=== PATIENT | female | born 1955 | race Hispanic/Latino ===

== ENCOUNTER 2019-04-23 08:21 | Emergency (ER) | payer MEDICARE ==
[2019-04-23 08:32] VITALS: BP 124/56
[2019-04-23 09:16] LABS: Basophils # (Auto) 0.1 K/mm3 (0.0-0.1); Basophils % (Auto) 1.1 % (0.0-1.8); Eosinophils # (Auto) 0.4 K/mm3 (0.0-0.4); Eosinophils % (Auto) 3.5 % (0.0-4.3); Hematocrit 39.8 % (30.3-42.9); Hemoglobin 13.1 gm/dl (10.1-14.3); Lymphocytes # (Auto) 2.9 K/mm3 (1.2-5.4); Lymphocytes % (Auto) 23.3 % (13.4-35.0); Mean Corpuscular HGB Conc 33 % (30-34); Mean Corpuscular Volume 92 fl (79-97); Monocytes # (Auto) 0.7 K/mm3 (0.0-0.8); Monocytes % (Auto) 5.2 % (0.0-7.3); Platelet Count 276 K/mm3 (140-440); Red Blood Count 4.33 M/mm3 (3.65-5.03); Red Cell Distribution Width 14.6 % (13.2-15.2)
--- NOTE | 2019-04-23 09:23 | Emergency Department Report ---
ED Abdominal Pain HPI - General Chief Complaint: Abdominal Pain Stated Complaint: RT LOWER BACK/ABD PAIN Time Seen by Provider: 04/23/19 08:54 Source: patient Mode of arrival: Ambulatory Limitations: No Limitations - History of Present Illness Initial Comments: PT COMES TO ER WITH A/C ABD PAIN. PT HAS HX KIDNEY STONES AND HAS HAD "LASER" SURGERY FOR THEM. NO N/V/FEVER/CHILLS PT AMBULATORY ANON NON ILL APPEARING PMH HTN HPLD CHRONIC PAIN GERD K STONE PSH FOR K STONE HOME RX STATIN NORCO 7.5 LISINOPRIL PPI Complaint: abdominal pain -: year(s) Location: R flank Improves With: nothing Worsens With: nothing Associated Symptoms: denies other symptoms - Related Data Previous Rx's Medication Instructions Recorded Last Taken Type Meclizine [Antivert] 25 mg PO TID PRN #20 tablet 01/21/16 Unknown Rx Ibuprofen [Motrin 600 MG tab] 600 mg PO Q8H PRN #20 tablet 02/01/16 Unknown Rx Antacid [Alum-Mag Hydrox-Simeth 30 ml PO Q4H PRN #30 oral.liqd 03/21/16 Unknown Rx [id number]/5Ml] Aspirin [Adult Low Dose Aspirin EC] 81 mg PO DAILY #30 tablet. 03/21/16 Unknown Rx AtorvaSTATin [Lipitor] 10 mg PO DAILY #30 tablet 03/21/16 Unknown Rx Bisacodyl [Dulcolax suppos] 10 mg FL QDAY PRN #20 supp.rect 03/21/16 Unknown Rx Docusate Sodium [Colace CAP] 100 mg PO BID #60 capsule 03/21/16 Unknown Rx Famotidine [Pepcid] 20 mg PO BID #30 tablet 03/21/16 Unknown Rx PARoxetine [Paxil] 10 mg PO DAILY #30 tablet 03/21/16 Unknown Rx HYDROcodone/APAP 5-325 [[place] 1 - 2 each PO Q6HR PRN #14 tablet 03/27/16 Unknown Rx 5/325] Ibuprofen [Motrin 800 MG tab] 800 mg PO Q8HR PRN #20 tablet 03/27/16 Unknown Rx Ondansetron [Zofran TAB] 4 mg PO Q8HR PRN #20 tablet 04/09/16 Unknown Rx Pantoprazole [Protonix] 40 mg PO QDAY #30 tablet 04/09/16 Unknown Rx Allergies Allergy/AdvReac Type Severity Reaction Status Date / Time Penicillins Allergy Dizziness Verified 03/01/16 14:48 Sulfa (Sulfonamide Allergy Dizziness Verified 03/01/16 14:48 Antibiotics) ED Review of Systems ROS: Stated complaint: RT LOWER BACK/ABD PAIN Other details as noted in HPI Comment: All other systems reviewed and negative ED Past Medical Hx - Past Medical History Previous Medical History?: Yes Hx GERD: Yes Hx Kidney Stones: Yes Hx Psychiatric Treatment: Yes (depression) Additional medical history: Pt. recently homeless currently at [facility] in program - Surgical History Past Surgical History?: Yes Additional Surgical History: Hysterectomy. SURGERY FOR KIDNEY STONES - Family History Family history: no significant - Social History Smoking Status: Current Every Day Smoker Substance Use Type: None - Medications Home Medications: Home Medications Medication Instructions Recorded Confirmed Last Taken Type Meclizine [Antivert] 25 mg PO TID PRN #20 tablet 01/21/16 03/19/16 Unknown Rx Ibuprofen [Motrin 600 MG tab] 600 mg PO Q8H PRN #20 tablet 02/01/16 03/19/16 Unknown Rx Antacid [Alum-Mag Hydrox-Simeth 30 ml PO Q4H PRN #30 oral.liqd 03/21/16 Unknown Rx [id number]/5Ml] Aspirin [Adult Low Dose Aspirin EC] 81 mg PO DAILY #30 tablet.dr 03/21/16 Unknown Rx AtorvaSTATin [Lipitor] 10 mg PO DAILY #30 tablet 03/21/16 Unknown Rx Bisacodyl [Dulcolax suppos] 10 mg FL QDAY PRN #20 supp.rect 03/21/16 Unknown Rx Docusate Sodium [Colace CAP] 100 mg PO BID #60 capsule 03/21/16 Unknown Rx Famotidine [Pepcid] 20 mg PO BID #30 tablet 03/21/16 Unknown Rx PARoxetine [Paxil] 10 mg PO DAILY #30 tablet 03/21/16 Unknown Rx HYDROcodone/APAP 5-325 [[place] 1 - 2 each PO Q6HR PRN #14 tablet 03/27/16 Unknown Rx 5/325] Ibuprofen [Motrin 800 MG tab] 800 mg PO Q8HR PRN #20 tablet 03/27/16 Unknown Rx Ondansetron [Zofran TAB] 4 mg PO Q8HR PRN #20 tablet 04/09/16 Unknown Rx Pantoprazole [Protonix] 40 mg PO QDAY #30 tablet 04/09/16 Unknown Rx ED Physical Exam - General Limitations: No Limitations General appearance: alert, in no apparent distress - Head Head exam: Present: atraumatic, normocephalic - Eye Eye exam: Present: normal appearance - ENT ENT exam: Present: mucous membranes moist - Neck Neck exam: Present: normal inspection - Respiratory Respiratory exam: Present: normal lung sounds bilaterally. Absent: respiratory distress - Cardiovascular Cardiovascular Exam: Present: regular rate, normal rhythm. Absent: systolic murmur, diastolic murmur, rubs, gallop - GI/Abdominal GI/Abdominal exam: Present: soft, normal bowel sounds - Extremities Exam Extremities exam: Present: normal inspection - Back Exam Back exam: Present: normal inspection - Neurological Exam Neurological exam: Present: alert, oriented X3 - Psychiatric Psychiatric exam: Present: normal affect, normal mood - Skin Skin exam: Present: warm, dry, intact, normal color. Absent: rash ED Course Vital Signs 04/23/19 08:30 Temperature 97.9 F Pulse Rate 72 Respiratory 18 Rate Blood Pressure 124/56 O2 Sat by Pulse 95 Oximetry ED Medical Decision Making - Lab Data Result diagrams: 04/23/19 08:58 04/23/19 08:58 - Medical Decision Making Labs 04/23/19 04/23/19 04/23/19 08:58 08:58 08:58 WBC 12.6 H RBC 4.33 Hgb 13.1 Hct 39.8 MCV 92 MCH 30 MCHC 33 RDW 14.6 Plt Count 276 Lymph % (Auto) 23.3 [place] % (Auto) 5.2 Eos % (Auto) 3.5 Baso % (Auto) 1.1 Lymph # 2.9 [place] # 0.7 Eos # 0.4 Baso # 0.1 Seg Neutrophils % 66.9 Seg Neutrophils # 8.4 H Sodium 142 Potassium 4.6 Chloride 107.5 H Carbon Dioxide 21 L Anion Gap 18 BUN 13 Creatinine 0.7 Estimated GFR > 60 BUN/Creatinine Ratio 19 Glucose 108 H Calcium 9.7 Total Bilirubin 0.40 AST 19 ALT 22 Alkaline Phosphatase 121 Total Protein 7.5 Albumin 4.5 Albumin/Globulin Ratio 1.5 Lipase 42 Urine Color Urine Turbidity Urine pH Ur Specific [place] Urine Protein Urine Glucose (UA) Urine Ketones Urine Blood Urine Nitrite Urine Bilirubin Urine Urobilinogen Ur Leukocyte Esterase Urine WBC (Auto) Urine RBC (Auto) 04/23/19 09:01 WBC RBC Hgb Hct MCV MCH MCHC RDW Plt Count Lymph % (Auto) [place] % (Auto) Eos % (Auto) Baso % (Auto) Lymph # [place] # Eos # Baso # Seg Neutrophils % Seg Neutrophils # Sodium Potassium Chloride Carbon Dioxide Anion Gap BUN Creatinine Estimated GFR BUN/Creatinine Ratio Glucose Calcium Total Bilirubin AST ALT Alkaline Phosphatase Total Protein Albumin Albumin/Globulin Ratio Lipase Urine Color Yellow Urine Turbidity Slightly-cloudy Urine pH 5.0 Ur Specific [place] 1.019 Urine Protein <15 mg/dl Urine Glucose (UA) Neg Urine Ketones Neg Urine Blood Neg Urine Nitrite Neg Urine Bilirubin Neg Urine Urobilinogen 2.0 Ur Leukocyte Esterase Neg Urine WBC (Auto) < 1.0 Urine RBC (Auto) < 1.0 Vital Signs 04/23/19 08:30 Temperature 97.9 F Pulse Rate 72 Respiratory 18 Rate Blood Pressure 124/56 O2 Sat by Pulse 95 Oximetry LABS NOTED UA NOTED VSS NO FEVER AMBULATORY NON ILL NON TOXIC TAKING PO PT HAS MRI SCHEDULED FOR HER PAIN PER HER PCP DR LMEOS DC HOME WITH AR PLAN OF CARE AND PCP FOLLOW UP - Differential Diagnosis RO UTI/HEMATURIA SUGGESTING K. STONE/G BLADDER DISEASE Critical care attestation.: If time is entered above; I have spent that time in minutes in the direct care of this critically ill patient, excluding procedure time. ED Disposition Clinical Impression: Chronic abdominal pain Disposition: DC-01 TO HOME OR SELFCARE Is pt being admited?: No Does the pt Need Aspirin: No Condition: Stable Instructions: Abdominal Pain (ED) Additional Instructions: call your pcp or urology MD today for next appointment and MRI all labs normal today urine normal today continue home lortab Referrals: YADIEL SCHILLING [Primary Care Provider] - 3-5 Days Time of Disposition: 10:22
[2019-04-23 09:32] LABS: Bilirubin,Urine NEG (Negative); Blood,Urine NEG (Negative); Color,Urine Yellow (Yellow); Protein,Urine <15 mg/dL mg/dL (Negative)
[2019-04-23 09:33] LABS: RBC,Urine < 1.0 /HPF (0.0-6.0); WBC,Urine < 1.0 /HPF (0.0-6.0)
[2019-04-23 09:42] LABS: Alanine Aminotransferase 22 units/L (7-56); Albumin 4.5 g/dL (3.9-5); BUN/Creatinine Ratio 19; Blood Urea Nitrogen 13 mg/dL (7-17); Calcium 9.7 mg/dL (8.4-10.2); Hemolysis Index 23
== END 2019-04-23 10:33 | disposition home or self-care (01) ==
LOC: ED 08:21
DX: M54.5 Low back pain (principal); G89.29 Other chronic pain; K21.9 Gastro-esophageal reflux disease without esophagitis; F32.9 Major depressive disorder, single episode, unspecified; F17.200 Nicotine dependence, unspecified, uncomplicated; Z88.0 Allergy status to penicillin; Z88.2 Allergy status to sulfonamides; Z79.82 Long term (current) use of aspirin; Z79.899 Other long term (current) drug therapy; Z87.442 Personal history of urinary calculi; Z90.710 Acquired absence of both cervix and uterus; Z59.0 Homelessness; Z79.1 Long term (current) use of non-steroidal anti-inflammatories (NSAID)
CPT/HCPCS: 36415; 80053; 81001; 83690; 85025; 99283

== ENCOUNTER 2019-06-07 09:09 | Emergency (ER) | payer MEDICARE ==
--- NOTE | 2019-06-07 10:12 | Emergency Department Report ---
ED General Adult HPI - General Chief complaint: Skin/Abscess/Foreign Body Stated complaint: LFT LEG BITE/SWELLING/PAIN Time Seen by Provider: 06/07/19 10:10 Source: patient Mode of arrival: Wheelchair Limitations: No Limitations - Related Data Previous Rx's Medication Instructions Recorded Last Taken Type Aspirin [Adult Low Dose Aspirin EC] 81 mg PO DAILY #30 tablet. 03/21/16 Unknown Rx AtorvaSTATin [Lipitor] 10 mg PO DAILY #30 tablet 03/21/16 Unknown Rx Famotidine [Pepcid] 20 mg PO BID #30 tablet 03/21/16 Unknown Rx Pantoprazole [Protonix] 40 mg PO QDAY #30 tablet 04/09/16 Unknown Rx Clindamycin [Clindamycin CAP] 150 mg PO Q8HR #30 capsule 06/07/19 Unknown Rx Allergies Allergy/AdvReac Type Severity Reaction Status Date / Time Penicillins Allergy Dizziness Verified 03/01/16 14:48 Sulfa (Sulfonamide Allergy Dizziness Verified 03/01/16 14:48 Antibiotics) ED Review of Systems ROS: Stated complaint: LFT LEG BITE/SWELLING/PAIN Other details as noted in HPI Comment: All other systems reviewed and negative ED Past Medical Hx - Past Medical History Previous Medical History?: Yes Hx GERD: Yes Hx Kidney Stones: Yes Hx Psychiatric Treatment: Yes (depression) Additional medical history: Pt. recently homeless currently at [facility] - Surgical History Past Surgical History?: Yes Additional Surgical History: Hysterectomy. SURGERY FOR KIDNEY STONES - Family History Family history: no significant - Social History Smoking Status: Current Every Day Smoker Substance Use Type: None - Medications Home Medications: Home Medications Medication Instructions Recorded Confirmed Last Taken Type Aspirin [Adult Low Dose Aspirin EC] 81 mg PO DAILY #30 tablet. 03/21/16 Unknown Rx AtorvaSTATin [Lipitor] 10 mg PO DAILY #30 tablet 03/21/16 Unknown Rx Famotidine [Pepcid] 20 mg PO BID #30 tablet 03/21/16 Unknown Rx Pantoprazole [Protonix] 40 mg PO QDAY #30 tablet 04/09/16 Unknown Rx Clindamycin [Clindamycin CAP] 150 mg PO Q8HR #30 capsule 06/07/19 Unknown Rx ED Physical Exam - General Limitations: No Limitations General appearance: alert, in no apparent distress - Head Head exam: Present: atraumatic, normocephalic - Eye Eye exam: Present: normal appearance - ENT ENT exam: Present: mucous membranes moist - Neck Neck exam: Present: normal inspection - Respiratory Respiratory exam: Present: normal lung sounds bilaterally. Absent: respiratory distress - Cardiovascular Cardiovascular Exam: Present: regular rate, normal rhythm. Absent: systolic murmur, diastolic murmur, rubs, gallop - GI/Abdominal GI/Abdominal exam: Present: soft, normal bowel sounds - Extremities Exam Extremities exam: Present: normal inspection - Expanded Lower Extremity Exam Left Upper Leg exam: Present: full ROM, tenderness. Absent: swelling - Back Exam Back exam: Present: normal inspection - Neurological Exam Neurological exam: Present: alert, oriented X3 - Psychiatric Psychiatric exam: Present: normal affect, normal mood - Skin Skin exam: Present: warm, dry, intact, normal color. Absent: rash ED Course Vital Signs 06/07/19 09:15 Temperature 97.4 F L Pulse Rate 74 Respiratory 20 Rate Blood Pressure 131/82 O2 Sat by Pulse 97 Oximetry ED Medical Decision Making - Lab Data Result diagrams: 06/07/19 10:56 06/07/19 10:56 - EKG Data EKG shows normal: sinus rhythm Rate: normal - EKG Data Interpretation: nonspecific ST-T wave alice - Radiology Data Radiology results: report reviewed, image reviewed - Medical Decision Making Lab Results 06/07/19 06/07/19 06/07/19 Range/Units 10:56 10:56 10:56 WBC 15.5 H (4.5-11.0) K/mm3 RBC 4.23 (3.65-5.03) M/mm3 Hgb 12.8 (10.1-14.3) gm/dl Hct 38.7 (30.3-42.9) % MCV 92 (79-97) fl MCH 30 (28-32) pg MCHC 33 (30-34) % RDW 14.7 (13.2-15.2) % Plt Count 282 (140-440) K/mm3 Lymph % (Auto) 20.2 (13.4-35.0) % [place] % (Auto) 4.9 (0.0-7.3) % Eos % (Auto) 1.8 (0.0-4.3) % Baso % (Auto) 0.9 (0.0-1.8) % Lymph # 3.1 (1.2-5.4) K/mm3 [place] # 0.8 (0.0-0.8) K/mm3 Eos # 0.3 (0.0-0.4) K/mm3 Baso # 0.1 (0.0-0.1) K/mm3 Seg Neutrophils % 72.2 H (40.0-70.0) % Seg Neutrophils # 11.2 H (1.8-7.7) K/mm3 Sodium 141 (137-145) mmol/L Potassium 4.5 (3.6-5.0) mmol/L Chloride 104.1 (98-107) mmol/L Carbon Dioxide 21 L (22-30) mmol/L Anion Gap 20 mmol/L BUN 14 (7-17) mg/dL Creatinine 0.7 (0.7-1.2) mg/dL Estimated GFR > 60 ml/min BUN/Creatinine Ratio 20 % Glucose 97 (65-100) mg/dL Lactic Acid 1.20 (0.7-2.0) mmol/L Calcium 9.2 (8.4-10.2) mg/dL Total Bilirubin 0.30 (0.1-1.2) mg/dL AST 16 (5-40) units/L ALT 22 (7-56) units/L Alkaline Phosphatase 116 (35-129) units/L Troponin T < 0.010 (0.00-0.029) ng/mL Total Protein 7.4 (6.3-8.2) g/dL Albumin 4.0 (3.9-5) g/dL Albumin/Globulin Ratio 1.2 % Urine Color (Yellow) Urine Turbidity (Clear) Urine pH (5.0-7.0) Ur Specific [place] (1.003-1.030) Urine Protein (Negative) mg/dL Urine Glucose (UA) (Negative) mg/dL Urine Ketones (Negative) mg/dL Urine Blood (Negative) Urine Nitrite (Negative) Urine Bilirubin (Negative) Urine Urobilinogen (<2.0) mg/dL Ur Leukocyte Esterase (Negative) Urine WBC (Auto) (0.0-6.0) /HPF Urine RBC (Auto) (0.0-6.0) /HPF U Epithel Cells (Auto) (0-13.0) /HPF Urine Bacteria (Auto) (Negative) /HPF Urine Mucus /HPF 06/07/19 Range/Units Unknown WBC (4.5-11.0) K/mm3 RBC (3.65-5.03) M/mm3 Hgb (10.1-14.3) gm/dl Hct (30.3-42.9) % MCV (79-97) fl MCH (28-32) pg MCHC (30-34) % RDW (13.2-15.2) % Plt Count (140-440) K/mm3 Lymph % (Auto) (13.4-35.0) % [place] % (Auto) (0.0-7.3) % Eos % (Auto) (0.0-4.3) % Baso % (Auto) (0.0-1.8) % Lymph # (1.2-5.4) K/mm3 [place] # (0.0-0.8) K/mm3 Eos # (0.0-0.4) K/mm3 Baso # (0.0-0.1) K/mm3 Seg Neutrophils % (40.0-70.0) % Seg Neutrophils # (1.8-7.7) K/mm3 Sodium (137-145) mmol/L Potassium (3.6-5.0) mmol/L Chloride (98-107) mmol/L Carbon Dioxide (22-30) mmol/L Anion Gap mmol/L BUN (7-17) mg/dL Creatinine (0.7-1.2) mg/dL Estimated GFR ml/min BUN/Creatinine Ratio % Glucose (65-100) mg/dL Lactic Acid (0.7-2.0) mmol/L Calcium (8.4-10.2) mg/dL Total Bilirubin (0.1-1.2) mg/dL AST (5-40) units/L ALT (7-56) units/L Alkaline Phosphatase (35-129) units/L Troponin T (0.00-0.029) ng/mL Total Protein (6.3-8.2) g/dL Albumin (3.9-5) g/dL Albumin/Globulin Ratio % Urine Color Yellow (Yellow) Urine Turbidity Clear (Clear) Urine pH 5.0 (5.0-7.0) Ur Specific [place] 1.026 (1.003-1.030) Urine Protein <15 mg/dl (Negative) mg/dL Urine Glucose (UA) Neg (Negative) mg/dL Urine Ketones Neg (Negative) mg/dL Urine Blood Neg (Negative) Urine Nitrite Neg (Negative) Urine Bilirubin Neg (Negative) Urine Urobilinogen 2.0 (<2.0) mg/dL Ur Leukocyte Esterase Neg (Negative) Urine WBC (Auto) 1.0 (0.0-6.0) /HPF Urine RBC (Auto) 5.0 (0.0-6.0) /HPF U Epithel Cells (Auto) 2.0 (0-13.0) /HPF Urine Bacteria (Auto) 1+ (Negative) /HPF Urine Mucus 1+ /HPF Vital Signs 06/07/19 09:15 Temperature 97.4 F L Pulse Rate 74 Respiratory 20 Rate Blood Pressure 131/82 O2 Sat by Pulse 97 Oximetry Critical care attestation.: If time is entered above; I have spent that time in minutes in the direct care of this critically ill patient, excluding procedure time. ED Disposition Clinical Impression: Leg pain Disposition: DC-01 TO HOME OR SELFCARE Is pt being admited?: No Does the pt Need Aspirin: No Condition: Stable Instructions: Cellulitis (ED) Additional Instructions: warm compresses to leg meds as ordered motrin or tylenol for pain continue home pain meds follow up with pcp early next week diet and activity as tolerated Referrals: PRIMARY CAREMD [Primary Care Provider] - 3-5 Days DARLINE HARE MD [Staff Physician] - 3-5 Days Time of Disposition: 13:26
--- NOTE | 2019-06-07 10:42 | XRay Report ---
CHEST 1 VIEW INDICATION: syncope, shortness of breath. COMPARISON: Chest x-ray from 03/19/2016 FINDINGS: Support devices: None. Heart: Within normal limits. Lungs/Pleura: No acute air space or interstitial disease. Additional findings: None. IMPRESSION: 1. No acute findings. Signer Name: Corey Finch MD Signed: 06/07/2019 10:38 AM Workstation Name: [id number]
[2019-06-07] MEDS ORDERED: IBUPROFEN 800 MG TAB PO ONE (10:54)
--- NOTE | 2019-06-07 10:56 | Cat Scan Report ---
NONENHANCED CT SCAN OF THE HEAD: INDICATION / CLINICAL INFORMATION: 63 years Female; syncope. TECHNIQUE: Routine CT head without contrast. All CT scans at this location are performed using CT dos e reduction for ALARA by means of automated exposure control. COMPARISON: CT scan from 01/21/2016 FINDINGS: BRAIN / INTRACRANIAL CONTENTS: No acute hemorrhage, mass effect, midline shift, hydrocephalus, or ac [place], large territorial infarct. Mild volume loss is seen in the cerebellar hemispheres and cerebellar vermis. No significant white matter abnormality. CRANIOCERVICAL JUNCTION: No significant abnormality. ORBITS: No significant abnormality of visualized orbits. SINUSES / MASTOIDS: No significant abnormality of the visualized paranasal sinuses or mastoid air abbe ls. ADDITIONAL FINDINGS: None. IMPRESSION: No acute parenchymal lesion in the brain Signer Name: Jeison Abel MD Signed: 06/07/2019 10:52 AM Workstation Name: [id number]
[2019-06-07 11:11] LABS: Basophils # (Auto) 0.1 K/mm3 (0.0-0.1); Basophils % (Auto) 0.9 % (0.0-1.8); Eosinophils # (Auto) 0.3 K/mm3 (0.0-0.4); Eosinophils % (Auto) 1.8 % (0.0-4.3); Hematocrit 38.7 % (30.3-42.9); Hemoglobin 12.8 gm/dl (10.1-14.3); Lymphocytes # (Auto) 3.1 K/mm3 (1.2-5.4); Lymphocytes % (Auto) 20.2 % (13.4-35.0); Mean Corpuscular HGB Conc 33 % (30-34); Mean Corpuscular Volume 92 fl (79-97); Monocytes # (Auto) 0.8 K/mm3 (0.0-0.8); Monocytes % (Auto) 4.9 % (0.0-7.3); Platelet Count 282 K/mm3 (140-440); Red Blood Count 4.23 M/mm3 (3.65-5.03); Red Cell Distribution Width 14.7 % (13.2-15.2)
[2019-06-07 11:37] LABS: Alanine Aminotransferase 22 units/L (7-56); BUN/Creatinine Ratio 20; Blood Urea Nitrogen 14 mg/dL (7-17); Calcium 9.2 mg/dL (8.4-10.2); Hemolysis Index 12
[2019-06-07 11:51] LABS: Bacteria,Urine 1+ /HPF (Negative); Bilirubin,Urine NEG (Negative); Blood,Urine NEG (Negative); Color,Urine Yellow (Yellow); Mucus,Urine 1+ /HPF; Protein,Urine <15 mg/dL mg/dL (Negative)
--- NOTE | 2019-06-07 13:09 | Vascular Lab Report ---
DUPLEX DOPPLER LOWER EXTREMITY VEINS, LEFT INDICATION: painful knot. TECHNIQUE: Duplex doppler imaging was performed through the veins of the left lower extremity using venous compr ession and other maneuvers. COMPARISON: No relevant prior imaging study available. FINDINGS: Left Common femoral vein: Negative. Left Superficial femoral vein: Negative. Left Popliteal vein: Negative. Left Calf veins: Negative. Additional findings: A couple shoddy lymph nodes were noted over the upper thigh. IMPRESSION: 1. No sonographic evidence for DVT in the left lower extremity. Signer Name: Corey Finch MD Signed: 06/07/2019 1:04 PM Workstation Name: [id number]
[2019-06-07] MEDS ORDERED: CLINDAMYCIN 300 MG/50 mL 300 MG/50 ML BAG IV ONE (13:23)
[2019-06-07 14:40] VITALS: BP 130/80
== END 2019-06-07 14:40 | disposition home or self-care (01) ==
LOC: ED 09:09
DX: M79.605 Pain in left leg (principal); K21.9 Gastro-esophageal reflux disease without esophagitis; N20.0 Calculus of kidney; F32.9 Major depressive disorder, single episode, unspecified; Z90.710 Acquired absence of both cervix and uterus; Z79.899 Other long term (current) drug therapy; F17.200 Nicotine dependence, unspecified, uncomplicated; R55 Syncope and collapse; Z88.0 Allergy status to penicillin; Z88.2 Allergy status to sulfonamides
CPT/HCPCS: 36415; 70450; 71045; 80053; 81001; 82140; 84484; 85025; 93005; 93010; 96365

== ENCOUNTER 2020-01-05 05:31 | Observation (INO) | payer MEDICAID, MEDICARE ==
--- NOTE | 2020-01-05 06:19 | XRay Report ---
CHEST 1 VIEW INDICATION / CLINICAL INFORMATION: Chest Pain. COMPARISON: None available. FINDINGS: SUPPORT DEVICES: None. HEART / MEDIASTINUM: No significant abnormality. LUNGS / PLEURA: Increase in pulmonary vascularity/congestion noted bilaterally. No pleural effusion. Signer Name: Tavo Molina MD Signed: 01/05/2020 6:15 AM Workstation Name: [id number]
[2020-01-05 06:31] LABS: Basophils # (Auto) 0.1 K/mm3 (0.0-0.1); Basophils % (Auto) 1.2 % (0.0-1.8); Eosinophils # (Auto) 0.3 K/mm3 (0.0-0.4); Eosinophils % (Auto) 2.7 % (0.0-4.3); Hematocrit 38.6 % (30.3-42.9); Hemoglobin 12.8 gm/dl (10.1-14.3); Lymphocytes # (Auto) 2.9 K/mm3 (1.2-5.4); Lymphocytes % (Auto) 27.8 % (13.4-35.0); Mean Corpuscular HGB Conc 33 % (30-34); Mean Corpuscular Volume 92 fl (79-97); Monocytes # (Auto) 0.7 K/mm3 (0.0-0.8); Monocytes % (Auto) 6.5 % (0.0-7.3); Platelet Count 323 K/mm3 (140-440); Red Blood Count 4.21 M/mm3 (3.65-5.03); Red Cell Distribution Width 14.8 % (13.2-15.2)
[2020-01-05 07:35] LABS: BUN/Creatinine Ratio 27; Blood Urea Nitrogen 19 mg/dL (7-17); Calcium 9.9 mg/dL (8.4-10.2); Hemolysis Index 6
--- NOTE | 2020-01-05 09:07 | Emergency Department Report ---
ED Chest Pain HPI - General Chief Complaint: Chest Pain Stated Complaint: CHEST PAIN Time Seen by Provider: 01/05/20 09:05 Source: patient, EMS Mode of arrival: Ambulatory Limitations: No Limitations - History of Present Illness Initial Comments: This is a 64-year-old female who states that she is unaware that she has any heart problems. Upon review of 2016 hospitalization she did have a normal myocardial perfusion scan. However her EKGs are consistent with old anterior wall zone. I do not see an echocardiogram on my review of the current rec ords. She states she does not have a market specialist. She states that she has a family doctor but cannot identify the name. She complains of intermittent chest pain. The last episode was pressure-like 15 minutes to 1/2-hour last night. It was nonpleuritic and nonradiating. It was associated with shortness of breath. Patient denies recent travel. She is morbidly obese. She lives alone. She d oes not know her current medical regimen very well other than that she is on a statin. She does not report treatment for congestive heart failure. She does not report exposure to patients with coronavirus nor recent travel. 2016 D/C Summary for Hospital course: Patient is a 60 years old female with past medical history significant for GERD and depression who presented to the hospital complaining of chest pain. Acute coronary syndrome was excluded based on EKG, serial cardiac enzymes and negative stress test. Her symptoms are related most likely with GERD/dyspepsia. She was started on Pepcid. Was also diagnosed with dyslipidemia and started on statin. Disposition: DISCHARGED TO HOME OR SELFCARE Time spent for discharge: 35 min - Discharge Diagnoses (1) Chest pain Status: Acute Comment: Likely secondary to GERD (2) Dyslipidemia Status: Acute (3) GERD (gastroesophageal reflux disease) Status: Acute Qualifiers: Esophagitis presence: without esophagitis Qualified Code(s): K21.9 - Gastro-esophageal reflux disease without esophagitis (4) Constipation Status: Acute (5) Depression Status: Acute MD Complaint: chest pain -: Gradual, week(s) (Intermittently) Onset: during rest Pain Location: substernal Pain Radiation: none Severity: moderate Quality: pressure Consistency: intermittent Improves With: nothing Worsens With: nothing re: dyspnea Other Symptoms: denies: cough, fever, syncope Treatments Prior to Arrival: none - Related Data Previous Rx's Medication Instructions Recorded Last Taken Type Aspirin [Adult Low Dose Aspirin EC] 81 mg PO DAILY #30 tablet. 03/21/16 Unknown Rx AtorvaSTATin [Lipitor] 10 mg PO DAILY #30 tablet 03/21/16 Unknown Rx Famotidine [Pepcid] 20 mg PO BID #30 tablet 03/21/16 Unknown Rx Pantoprazole [Protonix] 40 mg PO QDAY #30 tablet 04/09/16 Unknown Rx Clindamycin [Clindamycin CAP] 150 mg PO Q8HR #30 capsule 06/07/19 Unknown Rx Allergies Allergy/AdvReac Type Severity Reaction Status Date / Time Penicillins Allergy Dizziness Verified 03/01/16 14:48 Sulfa (Sulfonamide Allergy Dizziness Verified 03/01/16 14:48 Antibiotics) Heart Score - HEART Score History: Moderately suspicious EKG: Non-specific Age: > 65 Risk factors: > 3 risk factors or hx of atherosclerotic disease Troponin: < normal limit HEART Score: 6 - Critical Actions Critical Actions: 4-6 pts:12-16.6% risk of adverse cardiac event. Should be admitted ED Review of Systems ROS: Stated complaint: CHEST PAIN Other details as noted in HPI Constitutional: denies: chills, fever Eyes: denies: eye pain, eye discharge, vision change ENT: denies: ear pain, throat pain Respiratory: shortness of breath. denies: cough, wheezing Cardiovascular: chest pain. denies: palpitations Endocrine: no symptoms reported Gastrointestinal: denies: abdominal pain, nausea, diarrhea Genitourinary: denies: urgency, dysuria, discharge Musculoskeletal: denies: back pain, joint swelling, arthralgia Skin: denies: rash, lesions Neurological: denies: headache, weakness, paresthesias Psychiatric: denies: anxiety, depression Hematological/Lymphatic: denies: easy bleeding, easy bruising ED Past Medical Hx - Past Medical History Previous Medical History?: Yes Hx GERD: Yes Hx Kidney Stones: Yes Hx Psychiatric Treatment: Yes (depression) Additional medical history: Pt. recently homeless currently at [facility] in program. This is populated from her previous medical record. Patient states that she lives alone "with a cat". - Surgical History Past Surgical History?: Yes Additional Surgical History: Hysterectomy. SURGERY FOR KIDNEY STONES - Social History Smoking Status: Current Every Day Smoker Substance Use Type: None - Medications Home Medications: Home Medications Medication Instructions Recorded Confirmed Last Taken Type Aspirin [Adult Low Dose Aspirin EC] 81 mg PO DAILY #30 tablet. 03/21/16 Unknown Rx AtorvaSTATin [Lipitor] 10 mg PO DAILY #30 tablet 03/21/16 Unknown Rx Famotidine [Pepcid] 20 mg PO BID #30 tablet 03/21/16 Unknown Rx Pantoprazole [Protonix] 40 mg PO QDAY #30 tablet 04/09/16 Unknown Rx Clindamycin [Clindamycin CAP] 150 mg PO Q8HR #30 capsule 06/07/19 Unknown Rx ED Physical Exam - General Limitations: Physical Limitation (Poorly mobile) General appearance: obese (Morbidly obese) - Head Head exam: Present: atraumatic - Eye Eye exam: Absent: scleral icterus - ENT ENT exam: Present: mucous membranes moist - Neck Neck exam: Present: normal inspection. Absent: tenderness, meningismus - Respiratory Respiratory exam: Present: normal lung sounds bilaterally. Absent: respiratory distress - Cardiovascular Cardiovascular Exam: Present: regular rate, normal rhythm. Absent: systolic murmur, diastolic murmur, rubs, gallop - GI/Abdominal GI/Abdominal exam: Present: soft, normal bowel sounds. Absent: distended, tenderness, guarding, rebound - Extremities Exam Extremities exam: Present: pedal edema (And pretibial) - Back Exam Back exam: Present: normal inspection - Neurological Exam Neurological exam: Present: alert, oriented X3. Absent: CN II-XII intact, motor sensory deficit - Psychiatric Psychiatric exam: Present: anxious - Skin Skin exam: Present: warm, dry, intact, normal color. Absent: rash ED Course Vital Signs 01/05/20 01/05/20 01/05/20 05:36 08:58 09:00 Temperature 98.2 F Pulse Rate 80 77 76 Respiratory 18 13 16 Rate Blood Pressure 115/53 115/71 O2 Sat by Pulse 95 95 95 Oximetry 01/05/20 01/05/20 01/05/20 09:15 09:31 09:45 Temperature Pulse Rate Respiratory 9 L 13 16 Rate Blood Pressure 117/63 100/76 120/76 O2 Sat by Pulse 96 97 96 Oximetry 01/05/20 01/05/20 10:09 10:15 Temperature Pulse Rate Respiratory Rate Blood Pressure 120/76 105/75 O2 Sat by Pulse 95 97 Oximetry - Reevaluation(s) Reevaluation #1: Patient will be admitted to the hospital service for further care and stratification cardiology consultation/treatment for CHF and evaluation of chest pain 01/05/20 09:41 Reevaluation #2: Discussed with hospitalist and admitted. 01/05/20 12:18 GISEL score - Gisel Score Age > 65: (0) No Aspirin use within the Past 7 Days: (0) No 3 or more CAD Risk Factors: (1) Yes 2 or more Angina events in past 24 hrs: (1) Yes Known CAD with more than 50% Stenosis: (0) No Elevated Cardiac Markers: (0) No ST Deviation Greater than 0.5mm: (0) No GISEL Score: 2 ED Medical Decision Making - Lab Data Result diagrams: 01/05/20 05:58 01/05/20 05:58 Laboratory Results - last 24 hr 01/05/20 01/05/20 01/05/20 05:58 05:58 08:13 WBC 10.5 RBC 4.21 Hgb 12.8 Hct 38.6 MCV 92 MCH 30 MCHC 33 RDW 14.8 Plt Count 323 Lymph % (Auto) 27.8 [place] % (Auto) 6.5 Eos % (Auto) 2.7 Baso % (Auto) 1.2 Lymph # 2.9 [place] # 0.7 Eos # 0.3 Baso # 0.1 Seg Neutrophils % 61.8 Seg Neutrophils # 6.5 Sodium 139 Potassium 4.5 Chloride 103.7 Carbon Dioxide 22 Anion Gap 18 BUN 19 H Creatinine 0.7 Estimated GFR > 60 BUN/Creatinine Ratio 27 Glucose 111 H Calcium 9.9 Troponin T < 0.010 < 0.010 Laboratory Results - last 24 hr 01/05/20 01/05/20 01/05/20 05:58 05:58 08:13 WBC 10.5 RBC 4.21 Hgb 12.8 Hct 38.6 MCV 92 MCH 30 MCHC 33 RDW 14.8 Plt Count 323 Lymph % (Auto) 27.8 [place] % (Auto) 6.5 Eos % (Auto) 2.7 Baso % (Auto) 1.2 Lymph # 2.9 [place] # 0.7 Eos # 0.3 Baso # 0.1 Seg Neutrophils % 61.8 Seg Neutrophils # 6.5 Sodium 139 Potassium 4.5 Chloride 103.7 Carbon Dioxide 22 Anion Gap 18 BUN 19 H Creatinine 0.7 Estimated GFR > 60 BUN/Creatinine Ratio 27 Glucose 111 H Calcium 9.9 Troponin T < 0.010 < 0.010 Laboratory Results - last 24 hr 01/05/20 01/05/20 01/05/20 05:58 05:58 08:13 WBC 10.5 RBC 4.21 Hgb 12.8 Hct 38.6 MCV 92 MCH 30 MCHC 33 RDW 14.8 Plt Count 323 Lymph % (Auto) 27.8 [place] % (Auto) 6.5 Eos % (Auto) 2.7 Baso % (Auto) 1.2 Lymph # 2.9 [place] # 0.7 Eos # 0.3 Baso # 0.1 Seg Neutrophils % 61.8 Seg Neutrophils # 6.5 PT INR APTT D-Dimer Sodium 139 Potassium 4.5 Chloride 103.7 Carbon Dioxide 22 Anion Gap 18 BUN 19 H Creatinine 0.7 Estimated GFR > 60 BUN/Creatinine Ratio 27 Glucose 111 H Calcium 9.9 Magnesium Total Bilirubin Direct Bilirubin Indirect Bilirubin AST ALT Alkaline Phosphatase Troponin T < 0.010 < 0.010 NT-Pro-B Natriuret Pep Total Protein Albumin Albumin/Globulin Ratio Urine Color Urine Turbidity Urine pH Ur Specific [place] Urine Protein Urine Glucose (UA) Urine Ketones Urine Blood Urine Nitrite Urine Bilirubin Urine Urobilinogen Ur Leukocyte Esterase Urine WBC (Auto) Urine RBC (Auto) U Epithel Cells (Auto) 01/05/20 01/05/20 01/05/20 09:14 09:14 10:35 WBC RBC Hgb Hct MCV MCH MCHC RDW Plt Count Lymph % (Auto) [place] % (Auto) Eos % (Auto) Baso % (Auto) Lymph # [place] # Eos # Baso # Seg Neutrophils % Seg Neutrophils # PT 12.4 INR 0.91 APTT 26.2 D-Dimer 223.20 Sodium Potassium Chloride Carbon Dioxide Anion Gap BUN Creatinine Estimated GFR BUN/Creatinine Ratio Glucose Calcium Magnesium 2.40 H Total Bilirubin 0.30 Direct Bilirubin < 0.2 Indirect Bilirubin 0.1 AST 30 ALT 38 Alkaline Phosphatase 77 Troponin T NT-Pro-B Natriuret Pep 28.96 Total Protein 7.5 Albumin 4.1 Albumin/Globulin Ratio 1.2 Urine Color Colorless Urine Turbidity Clear Urine pH 6.0 Ur Specific [place] 1.006 Urine Protein <15 mg/dl Urine Glucose (UA) Neg Urine Ketones Neg Urine Blood Neg Urine Nitrite Neg Urine Bilirubin Neg Urine Urobilinogen < 2.0 Ur Leukocyte Esterase Neg Urine WBC (Auto) < 1.0 Urine RBC (Auto) < 1.0 U Epithel Cells (Auto) 1.0 01/05/20 11:30 WBC RBC Hgb Hct MCV MCH MCHC RDW Plt Count Lymph % (Auto) [place] % (Auto) Eos % (Auto) Baso % (Auto) Lymph # [place] # Eos # Baso # Seg Neutrophils % Seg Neutrophils # PT INR APTT D-Dimer Sodium Potassium Chloride Carbon Dioxide Anion Gap BUN Creatinine Estimated GFR BUN/Creatinine Ratio Glucose Calcium Magnesium Total Bilirubin Direct Bilirubin Indirect Bilirubin AST ALT Alkaline Phosphatase Troponin T < 0.010 NT-Pro-B Natriuret Pep Total Protein Albumin Albumin/Globulin Ratio Urine Color Urine Turbidity Urine pH Ur Specific [place] Urine Protein Urine Glucose (UA) Urine Ketones Urine Blood Urine Nitrite Urine Bilirubin Urine Urobilinogen Ur Leukocyte Esterase Urine WBC (Auto) Urine RBC (Auto) U Epithel Cells (Auto) - EKG Data -: EKG Interpreted by [place] EKG shows normal: sinus rhythm, axis, intervals, QRS complexes (Poor R wave progression/QS V2 V3 consistent with old anterior TN. No change from prior EKG), ST-T waves Rate: normal - EKG Data When compared to previous EKG there are: no significant change Interpretation: no acute changes - Radiology Data Radiology results: report reviewed, image reviewed LUNGS / PLEURA: Increase in pulmonary vascularity/congestion noted bilaterally. No pleural effusion. Critical care attestation.: If time is entered above; I have spent that time in minutes in the direct care of this critically ill patient, excluding procedure time. ED Disposition Clinical Impression: Chest pain Qualifiers: Chest pain type: unspecified Qualified Code(s): R07.9 - Chest pain, unspecified Congestive heart failure Qualifiers: Heart failure type: unspecified Heart failure chronicity: acute Qualified Code(s): I50.9 - Heart failure, unspecified Disposition: 09 OP ADMIT IP TO THIS HOSP Is pt being admited?: Yes Does the pt Need Aspirin: Yes Condition: Stable Time of Disposition: 09:43
[2020-01-05] MEDS ORDERED: FUROSEMIDE 40 MG/4 ML INJ IV ONE (09:39)
[2020-01-05] MEDS ORDERED: ASPIRIN 325 MG TAB PO ONE (09:39)
[2020-01-05 09:47] LABS: Partial Thromboplastin Time 26.2 Sec. (24.2-36.6)
[2020-01-05 09:53] LABS: INR 0.91 (0.87-1.13)
[2020-01-05 09:58] LABS: Alanine Aminotransferase 38 units/L (7-56); Albumin 4.1 g/dL (3.9-5)
[2020-01-05 10:00] LABS: Bilirubin,Direct < 0.2 mg/dL (0-0.2)
[2020-01-05 10:53] LABS: Bilirubin,Urine NEG (Negative); Blood,Urine NEG (Negative); Color,Urine Colorless (Yellow); Protein,Urine <15 mg/dL mg/dL (Negative); RBC,Urine < 1.0 /HPF (0.0-6.0); Urobilinogen,Urine < 2.0 mg/dL (<2.0); WBC,Urine < 1.0 /HPF (0.0-6.0)
[2020-01-05] MEDS ORDERED: ONDANSETRON 4 MG/2 ML INJ IV PRN (11:50)
[2020-01-05] MEDS ORDERED: ACETAMINOPHEN 325 MG TAB PO PRN (11:50)
[2020-01-05] MEDS ORDERED: ALBUTEROL 2.5 MG/3 ML NEBU IH PRN (11:50)
[2020-01-05] MEDS ORDERED: NALOXONE 0.4 MG/1 ML INJ IV PRN (11:50)
--- NOTE | 2020-01-05 11:59 | History and Physical Report ---
History of Present Illness Date of examination: 01/05/20 Date of admission: 01/05/20 Chief complaint: Chest pain History of present illness: Patient is a 64-year-old female with past medical history of GERD, dyslipidemia, chronic pain syndrome, constipation and depression who presents to the ED with complaint of generalized body pain. She reports that she this has been ongoing for about 1 to 2 weeks with no resolution. Her pain is migratory and sometimes is on the right and on the left side of the chest. States last episode was pressure-like and was about 15 minutes to half an hour. She did report some shortness of breath he states was just one episode. She also went off on a tangent telling me that she is homeless but stays [facility] from where she came to the hospital for evaluation. No acute findings were noted in the ED were concerning for her chest pain we recommended to admit the patient. Past History Past Medical History: hypertension, hyperlipidemia, other (CHRONIC PAIN SYNDROME) Past Surgical History: No surgical history Social history: no significant social history Family history: no significant family history Medications and Allergies Allergies Allergy/AdvReac Type Severity Reaction Status Date / Time Penicillins Allergy Dizziness Verified 03/01/16 14:48 Sulfa (Sulfonamide Allergy Dizziness Verified 03/01/16 14:48 Antibiotics) Home Medications Medication Instructions Recorded Confirmed Last Taken Type AtorvaSTATin [Lipitor] 10 mg PO DAILY #30 tablet 03/21/16 01/05/20 Unknown Rx Fenofibrate 160 mg PO DAILY 01/05/20 01/05/20 Unknown History Lisinopril 2.5 mg PO DAILY 01/05/20 01/05/20 Unknown History Omeprazole 40 mg PO DAILY 01/05/20 01/05/20 Unknown History Active Meds: Active Medications Acetaminophen (Tylenol) 650 mg PO Q4H PRN PRN Reason: Pain MILD(1-3)/Fever >100.5/VILLALBA Albuterol (Proventil) 2.5 mg IH Q3HRT PRN PRN Reason: Shortness Of Breath Albuterol/Ipratropium (Duoneb *Not For Prn Use*) 1 ampul IH Q6HRT [facility] Aspirin (Halfprin Ec) 81 mg PO DAILY [facility] Atorvastatin Calcium (Atorvastatin) 10 mg PO DAILY [facility] Famotidine (Pepcid) 20 mg PO BID [facility] Heparin Sodium (Porcine) (Heparin) 5,000 unit SUB-Q Q12HR [facility] Morphine Sulfate (Morphine) 2 mg IV Q4H PRN PRN Reason: Pain, Moderate (4-6) Naloxone HCl (Naloxone) 0.1 mg IV Q2MIN PRN PRN Reason: Res Rate </= 8 or 02 SAT < 92% Ondansetron HCl (Zofran) 4 mg IV Q8H PRN PRN Reason: Nausea And Vomiting Pantoprazole Sodium (Protonix) 40 mg PO QDAY [facility] Sodium Chloride (Sodium Chloride Flush Syringe 10 Ml) 10 ml IV BID [facility] Sodium Chloride (Sodium Chloride Flush Syringe 10 Ml) 10 ml IV PRN PRN PRN Reason: LINE FLUSH Review of Systems All systems: negative Constitutional: no weight loss, no weight gain, no fever, no chills, no sweats, no night sweats, no malaise, no lethargy Cardiovascular: chest pain, edema, lightheadedness, shortness of breath Respiratory: cough, no cough with sputum, no excessive sputum Gastrointestinal: no vomiting, no diarrhea, no constipation, no change in bowel habits, no hematemesis Musculoskeletal: no neck pain, no shooting arm pain, no low back pain, no shooting leg pain, no muscle cramps Integumentary: no pruritis, no sores, no lesions, no depigmentation Neurological: no transient paralysis, no numbness, no tingling Exam - Constitutional Vitals: Temp Pulse Resp BP Pulse Ox 98.2 F 76 16 105/75 97 01/05/20 05:36 01/05/20 09:00 01/05/20 09:45 01/05/20 10:15 01/05/20 10:15 HEART Score - HEART Score EKG: Non-specific Age: > 65 Risk factors: > 3 risk factors or hx of atherosclerotic disease Troponin: Troponin T < 0.010 ng/mL (0.00-0.029) 01/05/20 08:13 Results - Labs CBC & Chem 7: 01/06/20 05:23 01/06/20 05:23 Labs: Laboratory Last Values WBC 10.5 K/mm3 (4.5-11.0) 01/05/20 05:58 RBC 4.21 M/mm3 (3.65-5.03) 01/05/20 05:58 Hgb 12.8 gm/dl (10.1-14.3) 01/05/20 05:58 Hct 38.6 % (30.3-42.9) 01/05/20 05:58 MCV 92 fl (79-97) 01/05/20 05:58 MCH 30 pg (28-32) 01/05/20 05:58 MCHC 33 % (30-34) 01/05/20 05:58 RDW 14.8 % (13.2-15.2) 01/05/20 05:58 Plt Count 323 K/mm3 (140-440) 01/05/20 05:58 Lymph % (Auto) 27.8 % (13.4-35.0) 01/05/20 05:58 [place] % (Auto) 6.5 % (0.0-7.3) 01/05/20 05:58 Eos % (Auto) 2.7 % (0.0-4.3) 01/05/20 05:58 Baso % (Auto) 1.2 % (0.0-1.8) 01/05/20 05:58 Lymph # 2.9 K/mm3 (1.2-5.4) 01/05/20 05:58 [place] # 0.7 K/mm3 (0.0-0.8) 01/05/20 05:58 Eos # 0.3 K/mm3 (0.0-0.4) 01/05/20 05:58 Baso # 0.1 K/mm3 (0.0-0.1) 01/05/20 05:58 Seg Neutrophils % 61.8 % (40.0-70.0) 01/05/20 05:58 Seg Neutrophils # 6.5 K/mm3 (1.8-7.7) 01/05/20 05:58 PT 12.4 Sec. (12.2-14.9) 01/05/20 09:14 INR 0.91 (0.87-1.13) 01/05/20 09:14 APTT 26.2 Sec. (24.2-36.6) 01/05/20 09:14 D-Dimer 223.20 ng/mlDDU (0-234) 01/05/20 09:14 Sodium 139 mmol/L (137-145) 01/05/20 05:58 Potassium 4.5 mmol/L (3.6-5.0) 01/05/20 05:58 Chloride 103.7 mmol/L (98-107) 01/05/20 05:58 Carbon Dioxide 22 mmol/L (22-30) 01/05/20 05:58 Anion Gap 18 mmol/L 01/05/20 05:58 BUN 19 mg/dL (7-17) H 01/05/20 05:58 Creatinine 0.7 mg/dL (0.7-1.2) 01/05/20 05:58 Estimated GFR > 60 ml/min 01/05/20 05:58 BUN/Creatinine Ratio 27 % 01/05/20 05:58 Glucose 111 mg/dL (65-100) H 01/05/20 05:58 Calcium 9.9 mg/dL (8.4-10.2) 01/05/20 05:58 Magnesium 2.40 mg/dL (1.7-2.3) H 01/05/20 09:14 Total Bilirubin 0.30 mg/dL (0.1-1.2) 01/05/20 09:14 Direct Bilirubin < 0.2 mg/dL (0-0.2) 01/05/20 09:14 Indirect Bilirubin 0.1 mg/dL 01/05/20 09:14 AST 30 units/L (5-40) 01/05/20 09:14 ALT 38 units/L (7-56) 01/05/20 09:14 Alkaline Phosphatase 77 units/L (35-129) 01/05/20 09:14 Troponin T < 0.010 ng/mL (0.00-0.029) 01/05/20 08:13 NT-Pro-B Natriuret Pep 28.96 pg/mL (0-900) 01/05/20 09:14 Total Protein 7.5 g/dL (6.3-8.2) 01/05/20 09:14 Albumin 4.1 g/dL (3.9-5) 01/05/20 09:14 Albumin/Globulin Ratio 1.2 % 01/05/20 09:14 Urine Color Colorless (Yellow) 01/05/20 10:35 Urine Turbidity Clear (Clear) 01/05/20 10:35 Urine pH 6.0 (5.0-7.0) 01/05/20 10:35 Ur Specific [place] 1.006 (1.003-1.030) 01/05/20 10:35 Urine Protein <15 mg/dl mg/dL (Negative) 01/05/20 10:35 Urine Glucose (UA) Neg mg/dL (Negative) 01/05/20 10:35 Urine Ketones Neg mg/dL (Negative) 01/05/20 10:35 Urine Blood Neg (Negative) 01/05/20 10:35 Urine Nitrite Neg (Negative) 01/05/20 10:35 Urine Bilirubin Neg (Negative) 01/05/20 10:35 Urine Urobilinogen < 2.0 mg/dL (<2.0) 01/05/20 10:35 Ur Leukocyte Esterase Neg (Negative) 01/05/20 10:35 Urine WBC (Auto) < 1.0 /HPF (0.0-6.0) 01/05/20 10:35 Urine RBC (Auto) < 1.0 /HPF (0.0-6.0) 01/05/20 10:35 U Epithel Cells (Auto) 1.0 /HPF (0-13.0) 01/05/20 10:35 Assessment and Plan Assessment and plan: Patient is a 64-year-old female with past medical history of GERD, dyslipidemia, chronic pain syndrome, constipation and depression who presents to the ED with complaint of generalized body pain. She reports that she this has been ongoing for about 1 to 2 weeks with no resolution. Her pain is migratory and sometimes is on the right and on the left side of the chest. States last episode was pressure-like and was about 15 minutes to half an hour. She did report some shortness of breath he states was just one episode. She also went off on a tangent telling me that she is homeless but stays in [facility] from where she came to the hospital for evaluation. No acute findings were noted in the ED were concerning for her chest pain we recommended to admit the patient. Patient is homeless and lives at [facility] Patient with generalized body ache Patient states she has appointment with a cancer doctor but not sure why she also claims she has a pain doctor she follows with she has a h[place] of [place] from [place] according to her She reports hx of GERD she has no fever or leukocytosis (1) Chest pain Status: Acute Comment: Likely secondary to GERD 10 cardiology evaluation Chest pain protocol No clear indication for stress test at this time but will defer to cardiology Aspirin statin and beta-tate if indicated. (2) Dyslipidemia Status: Acute (3) GERD (gastroesophageal reflux disease) Status: Acute Qualifiers: Esophagitis presence: without esophagitis Qualified Code(s): K21.9 - Gastro-esophageal reflux disease without esophagitis (4) Constipation-resolved Status: Acute (5) Depression Status: Acute (6) Chronic Pain syndrome Plan of care discussed with the patient anticipate discharge in a.m. Advance Directives: Yes Plan of care discussed with patient/family: Yes
[2020-01-05] MEDS: PANTOPRAZOLE 40 MG INJ IV SCH (12:17)
[2020-01-05] MEDS ORDERED: PANTOPRAZOLE 40 MG INJ IV ONE (12:17)
[2020-01-05 15:19] LABS: Chol/HDL Ratio 3.79 %
[2020-01-05] MEDS: IPRATROPIUM/ALBUTEROL SULFATE 3 ML AMPUL.NEB IH SCH (20:00)
[2020-01-05] MEDS ORDERED: FAMOTIDINE 20 MG TAB PO SCH (22:00)
[2020-01-05] MEDS ORDERED: MORPHINE 2 MG/1 ML INJ ONE (22:11)
[2020-01-05] MEDS ORDERED: HEPARIN 5,000 UNIT/1 ML VIAL ONE (22:11)
[2020-01-05] MEDS: HEPARIN 5,000 UNIT/1 ML VIAL SUB-Q SCH (22:23)
[2020-01-05] MEDS: MORPHINE 2 MG/1 ML INJ IV PRN (22:23)
[2020-01-06] MEDS: IPRATROPIUM/ALBUTEROL SULFATE 3 ML AMPUL.NEB IH SCH ×5 (00:14→20:16)
[2020-01-06 06:07] LABS: Basophils # (Auto) 0.2 K/mm3 (0.0-0.1); Basophils % (Auto) 1.3 % (0.0-1.8); Eosinophils # (Auto) 0.3 K/mm3 (0.0-0.4); Eosinophils % (Auto) 2.5 % (0.0-4.3); Hemoglobin 12.8 gm/dl (10.1-14.3); Lymphocytes # (Auto) 3.2 K/mm3 (1.2-5.4); Lymphocytes % (Auto) 27.4 % (13.4-35.0); Mean Corpuscular HGB Conc 32 % (30-34); Mean Corpuscular Volume 92 fl (79-97); Monocytes # (Auto) 0.8 K/mm3 (0.0-0.8); Monocytes % (Auto) 6.8 % (0.0-7.3); Platelet Count 316 K/mm3 (140-440); Red Blood Count 4.34 M/mm3 (3.65-5.03); Red Cell Distribution Width 14.9 % (13.2-15.2)
[2020-01-06 06:31] LABS: BUN/Creatinine Ratio 26; Blood Urea Nitrogen 23 mg/dL (7-17); Calcium 9.1 mg/dL (8.4-10.2); Hemolysis Index 34
[2020-01-06] MEDS: PANTOPRAZOLE 40 MG INJ IV SCH (09:27)
[2020-01-06] MEDS: ASPIRIN EC 81 MG TAB PO SCH (09:28)
[2020-01-06] MEDS: HEPARIN 5,000 UNIT/1 ML VIAL SUB-Q SCH ×2 (09:28→22:20)
[2020-01-06] MEDS ORDERED: PANTOPRAZOLE 40 MG TAB PO SCH (10:00)
--- NOTE | 2020-01-06 10:07 | Discharge Summary ---
Providers - Providers Date of Admission: 01/05/20 11:50 Attending physician: TROY GARCIA MD 01/05/20 Consult to Case Management [CONS] Routine Services Needed at Discharge: Trap Puller Notified:: cm 01/05/20 11:50 Consult to Physician [CONS] Routine Comment: Consulting Provider: FIDE TAVERAS Physician Instructions: Reason For Exam: chest pain 01/05/20 11:53 Consult to Dietitian/Nutrition [CONS] Routine Physician Instructions: Reason For Exam: Reason for Consult: Malnutrition 01/05/20 11:56 Consult to Mental Health [CONS] Routine Reason For Exam: depression Primary care physician: ACQUISITION ADVISOR Hospitalization Condition: Stable Hospital course: Patient is a 64-year-old female with past medical history of GERD, dyslipidemia, chronic pain syndrome, constipation and depression who presents to the ED with complaint of generalized body pain. She reports that she this has been ongoing for about 1 to 2 weeks with no resolution. Her pain is migratory and sometimes is on the right and on the left side of the chest. States last episode was pressure-like and was about 15 minutes to half an hour. She did report some shortness of breath he states was just one episode. She also went off on a tangent telling me that she is homeless but stays in [facility] from where she came to the hospital for evaluation. No acute findings were noted in the ED were concerning for her chest pain we recommended to admit the patient. Patient is homeless and lives at [facility] Patient with generalized body ache Patient states she has appointment with a cancer doctor but not sure why she also claims she has a pain doctor she follows with she has a hx of hyste[place] from [place] according to her She reports hx of GERD she has no fever or leukocytosis (1) Chest pain Status: Acute Comment: Likely secondary to GERD 10 cardiology evaluation Chest pain protocol No clear indication for stress test at this time but will defer to cardiology Aspirin statin and beta-tate if indicated. (2) Dyslipidemia Status: Acute (3) GERD (gastroesophageal reflux disease) Status: Acute Qualifiers: Esophagitis presence: without esophagitis Qualified Code(s): K21.9 - Gastro-esophageal reflux disease without esophagitis (4) Constipation Status: Acute (5) Depression Status: Acute (6) Chronic Pain syndrome Plan of care discussed with the patient anticipate discharge in a.m. Patient evaluated by cardiology today she is clinically stable no other findings no fever no nausea no vomiting. I recommended continue following up with her pain doctor. Disposition: DC-01 TO HOME OR SELFCARE Exam - Constitutional Vitals: Temp Pulse Resp BP Pulse Ox 98.0 F 82 18 112/69 93 01/06/20 08:15 01/06/20 08:59 01/06/20 08:15 01/06/20 08:15 01/06/20 08:15 Plan Activity: advance as tolerated, fall precautions Diet: low fat Special Instructions: record daily weights, record daily BP diary Follow up with: PRIMARY CAREMD [Primary Care Provider] - 3-5 Days HAI GHOSH MD [Staff Physician] - 7 Days Prescriptions: AtorvaSTATin 20 mg PO DAILY #30 tablet Aspirin EC [Halfprin EC] 81 mg PO DAILY #30 tablet Omeprazole 40 mg PO DAILY #30
--- NOTE | 2020-01-06 10:18 | Consultation ---
History of Present Illness - Reason for Consult Consult date: 01/06/20 Reason for consult: depression - History of Present Psychiatric Illness The patient's medical record was reviewed and the patient's progress was discussed with the medical staff. Terri Little is a 64y/o female patient who states she was admitted into the hospital for "chest pains." The patient says, "it was my heart." She is a/o x 3. She is calm and cooperative. The patient says she has a history of "anxiety." She says, "the put me on some anxiety pills a long time ago. I stopped taking them, didn't like the way they made me feel." She denies any SI/HI thoughts at present. The patient says, that was a long time ago. She says she attempted suicide about "twenty or 30 years ago." She says "I was admitted at that time, maybe longer than that." She says she seen a psychiatrist about "2 yeas ago for anxiety." The patient describes her mood as "good." She says, "now I got good things in my life to be happy about. I'm doing better now than I ever been." She says, "I got my own place and I got a josr name Jhonny." She pulls a picture up on her phone and shows me her cat. The patient also denies hallucinations of any kind. She denies any illicit drug use, or alcohol. She says she smokes a "pack of cigarets a day" but is not looking to quit. The patient denies any problems with her sleep or appetite. PAST PSYCHIATRIC HISTORY Diagnoses: Anxiety Suicide attempts or Self-harm behavior: "20 to 30 years ago" Prior psychiatric hospitalizations: "20 or 30 years ago, maybe longer" Substance Abuse history: Nicotine Previous psychiatric medications tried: "anxiety pills" Outpatient treatment: Denies PAST MEDICAL HISTORY: None reported Family Psychiatric History: None reported or documented SOCIAL HISTORY Marital Status: Living Arrangements: Alone Employment Status: Disabled Access to guns/weapons: Denies Education: 9th grade History of Abuse: Denies Legal History: Denies REVIEW OF SYSTEMS Constitutional: Negative for weight loss ENT: Negative for stridor Respiratory: Negative for cough or hemoptysis All other systems reviewed and are negative MENTAL STATUS EXAMINATION General Appearance: Dressed appropriately Behavior: Calm, cooperative, pleasant Mood: "good" Affect and affective range: Congruent with stated mood Speech: Normal tone and pace Thought Process: Goal directed Thought content: Suicidal Ideation: Denies Homicidal Ideation: Denies Hallucination: Denies Delusions: None elicited Insight/Judgment: Limited Memory/Cognition: Limited ASSESSMENT Generalized Anxiety Disorder RECOMMENDATIONS MEDICATIONS No medications at this time. Risks, benefits and alternatives of medications discussed with the patient, questions answered and consent obtained from patient. PSYCHOTHERAPY: Supportive psychotherapy provided MEDICAL: Per primary team DELIRIUM PRECAUTIONS: Please re-orient patient frequently, keep lights on during the day, and minimize benzodiazepines and opiates as these medications could worsen patient's confusion. PROJECT PLANNER: per medical team DISPOSITION: The patient does not meet the requirement for acute inpatient psychiatric treatment. She may discharge one medically clear. Will sign off Thank you for the consult. Please contact with any questions and/or concerns. Medications and Allergies Allergies Allergy/AdvReac Type Severity Reaction Status Date / Time Penicillins Allergy Dizziness Verified 03/01/16 14:48 Sulfa (Sulfonamide Allergy Dizziness Verified 03/01/16 14:48 Antibiotics) Home Medications Medication Instructions Recorded Confirmed Last Taken Type Fenofibrate 160 mg PO DAILY 01/05/20 01/05/20 Unknown History Lisinopril 2.5 mg PO DAILY 01/05/20 01/05/20 Unknown History Aspirin EC [Halfprin EC] 81 mg PO DAILY #30 tablet 01/06/20 Unknown Rx AtorvaSTATin 20 mg PO DAILY #30 tablet 01/06/20 Unknown Rx Omeprazole 40 mg PO DAILY #30 01/06/20 Unknown Rx Active Meds: Active Medications Acetaminophen (Tylenol) 650 mg PO Q4H PRN PRN Reason: Pain MILD(1-3)/Fever >100.5/VILLALBA Albuterol (Proventil) 2.5 mg IH Q3HRT PRN PRN Reason: Shortness Of Breath Albuterol/Ipratropium (Duoneb *Not For Prn Use*) 1 ampul IH Q6HRT [facility] Last Admin: 01/06/20 07:44 Dose: 1 ampul Documented by: Aspirin (Halfprin Ec) 81 mg PO DAILY [facility] Last Admin: 01/06/20 09:28 Dose: 81 mg Documented by: Atorvastatin Calcium (Atorvastatin) 10 mg PO DAILY [facility] Last Admin: 01/06/20 09:28 Dose: 10 mg Documented by: Heparin Sodium (Porcine) (Heparin) 5,000 unit SUB-Q Q12HR [facility] Last Admin: 01/06/20 09:28 Dose: 5,000 unit Documented by: Morphine Sulfate (Morphine) 2 mg IV Q4H PRN PRN Reason: Pain, Moderate (4-6) Last Admin: 01/05/20 22:23 Dose: 2 mg Documented by: Naloxone HCl (Naloxone) 0.1 mg IV Q2MIN PRN PRN Reason: Res Rate </= 8 or 02 SAT < 92% Ondansetron HCl (Zofran) 4 mg IV Q8H PRN PRN Reason: Nausea And Vomiting Pantoprazole Sodium (Protonix) 40 mg IV QDAY [facility] Last Admin: 01/06/20 09:27 Dose: 40 mg Documented by: Pneumococcal Polyvalent Vaccine (Pneumovax 23) 0.5 ml IM .ONCE ONE Stop: 01/06/20 12:01 Sodium Chloride (Sodium Chloride Flush Syringe 10 Ml) 10 ml IV BID [facility] Last Admin: 01/06/20 09:29 Dose: 10 ml Documented by: Sodium Chloride (Sodium Chloride Flush Syringe 10 Ml) 10 ml IV PRN PRN PRN Reason: LINE FLUSH Mental Status Exam - Vital signs Last Vital Signs Temp 98.0 F 01/06/20 08:15 Pulse 82 01/06/20 08:59 Resp 18 01/06/20 08:15 BP 112/69 01/06/20 08:15 Pulse Ox 93 01/06/20 08:15 Results Result Diagrams: 01/06/20 05:23 01/06/20 05:23 Abnormal lab results 01/05/20 01/06/20 01/06/20 Range/Units 13:14 05:23 05:23 WBC 11.6 H (4.5-11.0) K/mm3 Baso # 0.2 H (0.0-0.1) K/mm3 BUN 23 H (7-17) mg/dL Triglycerides 204 H (2-149) mg/dL All other labs normal.
--- NOTE | 2020-01-06 10:29 | Progress Note ---
Assessment and Plan Assessment and plan: Patient is a 64-year-old female with past medical history of GERD, dyslipidemia, chronic pain syndrome, constipation and depression who presents to the ED with complaint of generalized body pain. She reports that she this has been ongoing for about 1 to 2 weeks with no resolution. Her pain is migratory and sometimes is on the right and on the left side of the chest. States last episode was pressure-like and was about 15 minutes to half an hour. She did report some shortness of breath he states was just one episode. She also went off on a tangent telling me that she [facility]. No acute findings were noted in the ED were concerning for her chest pain we recommended to admit the patient. Patient is homeless and lives at [facility] Patient with generalized body ache Patient states she has appointment with a cancer doctor but not sure why she also claims she has a pain doctor she follows with she has a hx of hysterectomy from [place] according to her She reports hx of GERD she has no fever or leukocytosis 01/05: Discussed with life skills coordinator will proceed with cardiac catheterization in a.m. Will keep patient n.p.o. at this time. Constipation is resolved. (1) Chest pain Status: Acute Comment: Likely secondary to GERD 10 cardiology evaluation Chest pain protocol No clear indication for stress test at this time but will defer to cardiology Aspirin statin and beta-tate if indicated. (2) Dyslipidemia Status: Acute (3) GERD (gastroesophageal reflux disease) Status: Acute Qualifiers: Esophagitis presence: without esophagitis Qualified Code(s): K21.9 - Gastro-esophageal reflux disease without esophagitis (4) Constipation Status: Acute (5) Depression Status: Acute (6) Chronic Pain syndrome Patient evaluated by cardiology today she is clinically stable no other findings no fever no nausea no vomiting. I recommended continue following up with her pain doctor. Disposition: TO HOME OR SELFCARE . History Interval history: Patient seen and examined no new specific complaints anxious about planned cardiac catheterization. Case discussed with life skills coordinator. Hospitalist Physical - Physical exam Narrative exam: VITAL SIGNS: Reviewed. GENERAL: The patient appears normally developed, obese vital signs as documented. HEAD: No signs of head trauma. EYES: Pupils are equal. Extraocular motions intact. EARS: Hearing grossly intact. MOUTH: Oropharynx is normal. NECK: No adenopathy, no JVD. CHEST: Chest with clear breath sounds bilaterally. No wheezes, rales, or rhonchi. CARDIAC: Regular rate and rhythm. S1 and S2, without murmurs, gallops, or rubs. VASCULAR: No Edema. Peripheral pulses normal and equal in all extremities. ABDOMEN: Soft, non tender and non distended. No rebound or guarding, and no masses palpated. Bowel Sounds normal. MUSCULOSKELETAL: Good range of motion of all major joints. Extremities without clubbing, cyanosis or edema. NEUROLOGIC EXAM: Alert and oriented x 3 No focal sensory or strength deficits. Speech normal. Follows commands. PSYCHIATRIC: Mood anxious. SKIN: detial exam as documented in skin assessment - Constitutional Vitals: Temp Pulse Resp BP Pulse Ox 98.0 F 82 18 112/69 93 01/06/20 08:15 01/06/20 08:59 01/06/20 08:15 01/06/20 08:15 01/06/20 08:15 HEART Score - HEART Score EKG: Non-specific Age: > 65 Risk factors: > 3 risk factors or hx of atherosclerotic disease Troponin: Troponin T < 0.010 ng/mL (0.00-0.029) 01/05/20 11:30 Troponin: < normal limit - Critical Actions Critical Actions: 4-6 pts:12-16.6% risk of adverse cardiac event. Should be adm itted Results - Labs CBC & Chem 7: 01/06/20 05:23 01/06/20 05:23 Labs: Laboratory Last Values WBC 11.6 K/mm3 (4.5-11.0) H 01/06/20 05:23 RBC 4.34 M/mm3 (3.65-5.03) 01/06/20 05:23 Hgb 12.8 gm/dl (10.1-14.3) 01/06/20 05:23 Hct 40.0 % (30.3-42.9) 01/06/20 05:23 MCV 92 fl (79-97) 01/06/20 05:23 MCH 30 pg (28-32) 01/06/20 05:23 MCHC 32 % (30-34) 01/06/20 05:23 RDW 14.9 % (13.2-15.2) 01/06/20 05:23 Plt Count 316 K/mm3 (140-440) 01/06/20 05:23 Lymph % (Auto) 27.4 % (13.4-35.0) 01/06/20 05:23 Rhea % (Auto) 6.8 % (0.0-7.3) 01/06/20 05:23 Eos % (Auto) 2.5 % (0.0-4.3) 01/06/20 05:23 Baso % (Auto) 1.3 % (0.0-1.8) 01/06/20 05:23 Lymph # 3.2 K/mm3 (1.2-5.4) 01/06/20 05:23 Rhea # 0.8 K/mm3 (0.0-0.8) 01/06/20 05:23 Eos # 0.3 K/mm3 (0.0-0.4) 01/06/20 05:23 Baso # 0.2 K/mm3 (0.0-0.1) H 01/06/20 05:23 Seg Neutrophils % 62.0 % (40.0-70.0) 01/06/20 05:23 Seg Neutrophils # 7.2 K/mm3 (1.8-7.7) 01/06/20 05:23 PT 12.4 Sec. (12.2-14.9) 01/05/20 09:14 INR 0.91 (0.87-1.13) 01/05/20 09:14 APTT 26.2 Sec. (24.2-36.6) 01/05/20 09:14 D-Dimer 223.20 ng/mlDDU (0-234) 01/05/20 09:14 Sodium 137 mmol/L (137-145) 01/06/20 05:23 Potassium 4.2 mmol/L (3.6-5.0) 01/06/20 05:23 Chloride 100.6 mmol/L (98-107) 01/06/20 05:23 Carbon Dioxide 23 mmol/L (22-30) 01/06/20 05:23 Anion Gap 18 mmol/L 01/06/20 05:23 BUN 23 mg/dL (7-17) H 01/06/20 05:23 Creatinine 0.9 mg/dL (0.7-1.2) 01/06/20 05:23 Estimated GFR > 60 ml/min 01/06/20 05:23 BUN/Creatinine Ratio 26 % 01/06/20 05:23 Glucose 95 mg/dL (65-100) 01/06/20 05:23 Hemoglobin A1c 5.7 % (4-6) 01/05/20 13:14 Calcium 9.1 mg/dL (8.4-10.2) 01/06/20 05:23 Magnesium 2.40 mg/dL (1.7-2.3) H 01/05/20 09:14 Total Bilirubin 0.30 mg/dL (0.1-1.2) 01/05/20 09:14 Direct Bilirubin < 0.2 mg/dL (0-0.2) 01/05/20 09:14 Indirect Bilirubin 0.1 mg/dL 01/05/20 09:14 AST 30 units/L (5-40) 01/05/20 09:14 ALT 38 units/L (7-56) 01/05/20 09:14 Alkaline Phosphatase 77 units/L (35-129) 01/05/20 09:14 Troponin T < 0.010 ng/mL (0.00-0.029) 01/05/20 11:30 NT-Pro-B Natriuret Pep 28.96 pg/mL (0-900) 01/05/20 09:14 Total Protein 7.5 g/dL (6.3-8.2) 01/05/20 09:14 Albumin 4.1 g/dL (3.9-5) 01/05/20 09:14 Albumin/Globulin Ratio 1.2 % 01/05/20 09:14 Triglycerides 204 mg/dL (2-149) H 01/05/20 13:14 Cholesterol 167 mg/dL (50-199) 01/05/20 13:14 LDL Cholesterol Direct 100 mg/dL (50-130) 01/05/20 13:14 HDL Cholesterol 44 mg/dL (40-59) 01/05/20 13:14 Cholesterol/HDL Ratio 3.79 % 01/05/20 13:14 Urine Color Colorless (Yellow) 01/05/20 10:35 Urine Turbidity Clear (Clear) 01/05/20 10:35 Urine pH 6.0 (5.0-7.0) 01/05/20 10:35 Ur Specific [place] 1.006 (1.003-1.030) 01/05/20 10:35 Urine Protein <15 mg/dl mg/dL (Negative) 01/05/20 10:35 Urine Glucose (UA) Neg mg/dL (Negative) 01/05/20 10:35 Urine Ketones Neg mg/dL (Negative) 01/05/20 10:35 Urine Blood Neg (Negative) 01/05/20 10:35 Urine Nitrite Neg (Negative) 01/05/20 10:35 Urine Bilirubin Neg (Negative) 01/05/20 10:35 Urine Urobilinogen < 2.0 mg/dL (<2.0) 01/05/20 10:35 Ur Leukocyte Esterase Neg (Negative) 01/05/20 10:35 Urine WBC (Auto) < 1.0 /HPF (0.0-6.0) 01/05/20 10:35 Urine RBC (Auto) < 1.0 /HPF (0.0-6.0) 01/05/20 10:35 U Epithel Cells (Auto) 1.0 /HPF (0-13.0) 01/05/20 10:35 Díaz/IV: Voiding Method Toilet IV Catheter Type [Left Hand] INT / Saline Lock Active Medications - Current Medications Current Medications: Generic Name Dose Route Start Last Admin Trade Name Freq PRN Reason Stop Dose Admin Acetaminophen 650 mg 01/05/20 11:50 Tylenol PO Q4H PRN Pain MILD(1-3)/Fever >100.5/VILLALBA Albuterol 2.5 mg 01/05/20 11:50 Proventil IH Q3HRT PRN Shortness Of Breath Albuterol/Ipratropium 1 ampul 01/05/20 14:00 01/06/20 07:44 Duoneb *Not For Prn Use* IH 1 ampul Q6HRT [facility] Administration Aspirin 81 mg 01/06/20 10:00 01/06/20 09:28 Halfprin Ec PO 81 mg DAILY [facility] Administration Atorvastatin Calcium 10 mg 01/06/20 10:00 01/06/20 09:28 Atorvastatin PO 10 mg DAILY [facility] Administration Heparin Sodium (Porcine) 5,000 unit 01/05/20 22:00 01/06/20 09:28 Heparin SUB-Q 5,000 unit Q12HR [facility] Administration Morphine Sulfate 2 mg 01/05/20 11:50 01/05/20 22:23 Morphine IV 2 mg Q4H PRN Administration Pain, Moderate (4-6) Naloxone HCl 0.1 mg 01/05/20 11:50 Naloxone IV Q2MIN PRN Res Rate </= 8 or 02 SAT < 92% Ondansetron HCl 4 mg 01/05/20 11:50 Zofran IV Q8H PRN Nausea And Vomiting Pantoprazole Sodium 40 mg 01/05/20 12:00 01/06/20 09:27 Protonix IV 40 mg QDAY [facility] Administration Pneumococcal Polyvalent Vaccine 0.5 ml 01/06/20 12:00 Pneumovax 23 IM 01/06/20 12:01 .ONCE ONE Sodium Chloride 10 ml 01/05/20 22:00 01/06/20 09:29 Sodium Chloride Flush Syringe 10 Ml IV 10 ml BID [facility] Administration Sodium Chloride 10 ml 01/05/20 11:50 Sodium Chloride Flush Syringe 10 Ml IV PRN PRN LINE FLUSH Nutrition/Malnutrition Assess - Dietary Evaluation Nutrition/Malnutrition Findings: Nutrition Notes Start: 01/05/20 12:56 Freq: Status: Active Protocol: Document 01/05/20 12:56 [facility] (Rec: 01/05/20 12:57 [facility] SRW- [id number]) Nutrition Notes Need for Assessment generated from: MD Order Initial or Follow up Brief Note Other Pertinent Diagnosis Chest pain Subjective/Other Information RD consulted for malnutrition. Pt in ED at this time. Minimum of two criteria No Nutrition Intervention Follow-Up By: 01/10/20 Additional Comments F/U: intakes
--- NOTE | 2020-01-06 11:06 | Consultation ---
History of Present Illness Consult date: 01/06/20 Consult reason: chest pain History of present illness: 64 year old female with multiple admissions for chest pain presenting with poorly characterized chest pain. CXR showing pulmonary congestion but troponin and BNP are normal. ECG showing old anterior Q waves, unchanged from prior. No outpatient cardiac follow-up and no evidence of recent cardiac work-up. Past History Past Medical History: hypertension, hyperlipidemia, other (CHRONIC PAIN SYNDROME) Past Surgical History: No surgical history Social history: no significant social history Family history: no significant family history Medications and Allergies Allergies Allergy/AdvReac Type Severity Reaction Status Date / Time Penicillins Allergy Dizziness Verified 03/01/16 14:48 Sulfa (Sulfonamide Allergy Dizziness Verified 03/01/16 14:48 Antibiotics) Home Medications Medication Instructions Recorded Confirmed Last Taken Type Fenofibrate 160 mg PO DAILY 01/05/20 01/05/20 Unknown History Lisinopril 2.5 mg PO DAILY 01/05/20 01/05/20 Unknown History Aspirin EC [Halfprin EC] 81 mg PO DAILY #30 tablet 01/06/20 Unknown Rx AtorvaSTATin 20 mg PO DAILY #30 tablet 01/06/20 Unknown Rx Omeprazole 40 mg PO DAILY #30 01/06/20 Unknown Rx Active Meds: Active Medications Acetaminophen (Tylenol) 650 mg PO Q4H PRN PRN Reason: Pain MILD(1-3)/Fever >100.5/VILLALBA Albuterol (Proventil) 2.5 mg IH Q3HRT PRN PRN Reason: Shortness Of Breath Albuterol/Ipratropium (Duoneb *Not For Prn Use*) 1 ampul IH Q6HRT [facility] Last Admin: 01/06/20 07:44 Dose: 1 ampul Documented by: Aspirin (Halfprin Ec) 81 mg PO DAILY [facility] Last Admin: 01/06/20 09:28 Dose: 81 mg Documented by: Atorvastatin Calcium (Atorvastatin) 10 mg PO DAILY [facility] Last Admin: 01/06/20 09:28 Dose: 10 mg Documented by: Heparin Sodium (Porcine) (Heparin) 5,000 unit SUB-Q Q12HR [facility] Last Admin: 01/06/20 09:28 Dose: 5,000 unit Documented by: Morphine Sulfate (Morphine) 2 mg IV Q4H PRN PRN Reason: Pain, Moderate (4-6) Last Admin: 01/05/20 22:23 Dose: 2 mg Documented by: Naloxone HCl (Naloxone) 0.1 mg IV Q2MIN PRN PRN Reason: Res Rate </= 8 or 02 SAT < 92% Ondansetron HCl (Zofran) 4 mg IV Q8H PRN PRN Reason: Nausea And Vomiting Pantoprazole Sodium (Protonix) 40 mg IV QDAY [facility] Last Admin: 01/06/20 09:27 Dose: 40 mg Documented by: Pneumococcal Polyvalent Vaccine (Pneumovax 23) 0.5 ml IM .ONCE ONE Stop: 01/06/20 12:01 Sodium Chloride (Sodium Chloride Flush Syringe 10 Ml) 10 ml IV BID [facility] Last Admin: 01/06/20 09:29 Dose: 10 ml Documented by: Sodium Chloride (Sodium Chloride Flush Syringe 10 Ml) 10 ml IV PRN PRN PRN Reason: LINE FLUSH Review of Systems All systems: negative Physical Examination Vital Signs Temp Pulse Resp BP Pulse Ox 98.2 F 80 18 115/53 95 01/05/20 05:36 01/05/20 05:36 01/05/20 05:36 01/05/20 05:36 01/05/20 05:36 General appearance: no acute distress HEENT: Positive: PERRL Neck: Positive: neck supple Cardiac: Positive: Reg Rate and Rhythm Lungs: Positive: Normal Exam Neuro: Positive: Grossly Intact Abdomen: Positive: Soft Extremities: Absent: edema Results 01/06/20 05:23 01/06/20 05:23 Lipids 01/05/20 Range/Units 13:14 Triglycerides 204 H (2-149) mg/dL Cholesterol 167 (50-199) mg/dL HDL Cholesterol 44 (40-59) mg/dL Cholesterol/HDL Ratio 3.79 % CBC 01/06/20 Range/Units 05:23 WBC 11.6 H (4.5-11.0) K/mm3 RBC 4.34 (3.65-5.03) M/mm3 Hgb 12.8 (10.1-14.3) gm/dl Hct 40.0 (30.3-42.9) % Plt Count 316 (140-440) K/mm3 Lymph # 3.2 (1.2-5.4) K/mm3 [place] # 0.8 (0.0-0.8) K/mm3 Eos # 0.3 (0.0-0.4) K/mm3 Baso # 0.2 H (0.0-0.1) K/mm3 Comprehensive Metabolic Panel 01/06/20 Range/Units 05:23 Sodium 137 (137-145) mmol/L Potassium 4.2 (3.6-5.0) mmol/L Chloride 100.6 (98-107) mmol/L Carbon Dioxide 23 (22-30) mmol/L BUN 23 H (7-17) mg/dL Creatinine 0.9 (0.7-1.2) mg/dL Glucose 95 (65-100) mg/dL Calcium 9.1 (8.4-10.2) mg/dL - EKG Interpretation EKG: sinus rhythm EKG interpretations - Telemetry EKG Rhythm: Sinus Rhythm Assessment and Plan Chest pain, recurrent Multiple admissions for chest pain Remote cardiac work-up Anterior Q waves on ECG Generalized anxiety disorder Recommendations: Due to recurrent chest pain and multiple hospital admissions and taken into account the evidence of old anterior q waves on ECG, will proceed with coronary angio. Patient is agreeable to proceed.
[2020-01-06] MEDS ORDERED: PNEUMOCOCCAL 23 Valent 0.5 ML VIAL IM ONE (12:00)
[2020-01-06] MEDS ORDERED: SODIUM CHLORIDE 0.9% 500 ML 500 ML IV SCH (12:00)
[2020-01-07] MEDS: IPRATROPIUM/ALBUTEROL SULFATE 3 ML AMPUL.NEB IH SCH ×3 (02:01→15:04)
[2020-01-07] MEDS: MORPHINE 2 MG/1 ML INJ IV PRN (02:57)
[2020-01-07] MEDS ORDERED: HEPARIN/NS 5000 UNIT/500ML 1,000 ML IR ONE (08:03)
[2020-01-07] MEDS ORDERED: SODIUM CHLORIDE 0.9% 500 ML 500 ML ONE (08:23)
[2020-01-07] MEDS ORDERED: ASPIRIN EC 325 MG TAB PO ONE (08:27)
[2020-01-07] MEDS ORDERED: SODIUM CHLORIDE 0.9% 500 ML 500 ML IV SCH (09:00)
[2020-01-07] MEDS: MIDAZOLAM 2 MG/2 ML INJ ONE ×2 (09:32→09:40)
[2020-01-07] MEDS: fentaNYL 100 MCG/2 ML INJ ONE ×3 (09:32→09:47)
[2020-01-07] MEDS: LIDOCAINE (2%) 20 MG/1 ML VIAL 20 ML MDV INFILTRATI ONE ×2 (09:32→09:43)
[2020-01-07] MEDS: NITROGLYCERIN SYRINGE 3 ML ONE ×2 (09:33→09:44)
[2020-01-07] MEDS: HEPARIN 10,000 UNITS/10 ML VIAL ONE ×2 (09:33→09:44)
[2020-01-07] MEDS: VERAPAMIL 5 MG/2 ML INJ ONE ×2 (09:34→09:44)
--- NOTE | 2020-01-07 10:14 | Cardiac Catherization Report ---
CARDIAC CATHETERIZATION REPORT REASON FOR PROCEDURE: Chest pain. PROCEDURES: 1. Left heart catheterization. 2. Selective left and right coronary angiography. 3. Left ventricular angiography. 4. Sedation time, start 0943 hours, end 0953 hours. The patient was prepped and draped in a sterile fashion after informed consent. The right radial cath site was prepped and draped after a negative Leobardo's test. The right radial artery was entered using Seldinger technique followed by placement of a 6-Turkmen hydrophilic sheath. Routine radial cocktail was administered via the sheath. Selective left and right coronary angiography was performed using #3.5 left Valarie, and a #4 right Valarie. A pigtail catheter was used for left ventricular angiography. The catheters were then removed, sheath removed, and hemostasis achieved using a TR band. The patient was returned to the postprocedure unit in stable condition. There were no complications. FINDINGS: HEMODYNAMICS: Left ventricular end-diastolic pressure was 18, following coronary angiography. Ascending aortic pressure was 127/73. There was no significant pressure gradient on pullback across the aortic valve. CORONARY ANGIOGRAPHY: There was mild distal narrowing of the left main coronary artery before its bifurcation into the LAD and circumflex arteries. The left anterior descending artery contained mild ostial narrowing, but this vessel and its diagonal branches were otherwise angiographically normal. The circumflex artery similarly contained mild ostial narrowing, but otherwise this vessel and its obtuse marginal branches were angiographically normal. The right coronary artery was dominant. This vessel contained mild luminal atherosclerosis of the proximal and mid segments. Otherwise, no significant obstructive lesions were noted in the right coronary system. There was normal left ventricular systolic function with ejection fraction estimated at 60-65%, following an extrasystolic beat. CONCLUSION: 1. Mild nonobstructive irregularities as noted above. 2. Normal left ventricular systolic function, ejection fraction 60-65%. RECOMMENDATION: Risk factor modification and medical therapy. JOB# [id number] CA/NTS
[2020-01-07] MEDS: HEPARIN 5,000 UNIT/1 ML VIAL SUB-Q SCH (11:19)
[2020-01-07] MEDS: PANTOPRAZOLE 40 MG INJ IV SCH (11:19)
[2020-01-07] MEDS: ASPIRIN EC 81 MG TAB PO SCH (11:26)
--- NOTE | 2020-01-07 11:46 | Event Note ---
Date: 01/07/20 Cardiac catheterization completed via the right radial approach, no complications. We found no significant coronary artery disease and normal left ventricular systolic function. No further cardiac work-up is indicated, patient is okay for cardiac discharge, follow-up for outpatient post cath check in 1 to 2 weeks.
[2020-01-07] MEDS ORDERED: SODIUM CHLORIDE 0.9% 1000 ML 1,000 ML IV SCH (12:00)
--- NOTE | 2020-01-07 12:29 | Discharge Summary ---
Providers - Providers Date of Admission: 01/05/20 11:50 Attending physician: TROY GARCIA MD 01/05/20 Consult to Case Management [CONS] Routine Services Needed at Discharge: Keyboard Operator Notified:: cm 01/05/20 11:50 Consult to Physician [CONS] Routine Comment: Consulting Provider: FIDE TAVERAS Physician Instructions: Reason For Exam: chest pain 01/05/20 11:53 Consult to Dietitian/Nutrition [CONS] Routine Physician Instructions: Reason For Exam: Reason for Consult: Malnutrition 01/05/20 11:56 Consult to Mental Health [CONS] Routine Reason For Exam: depression 01/07/20 11:47 Consult to Cardiac Rehabilitation [CONS] Routine Reason For Exam: Cardiac Rehab Evaluation Primary care physician: ROLLWAY MAN Hospitalization Condition: Stable Disposition: DC-01 TO HOME OR SELFCARE Exam - Constitutional Vitals: Temp Pulse Resp BP Pulse Ox 97.3 F L 70 18 112/67 94 01/07/20 11:06 01/07/20 11:30 01/07/20 11:30 01/07/20 11:30 01/07/20 11:30 Plan Activity: advance as tolerated, fall precautions Diet: low fat Special Instructions: record daily BP diary Follow up with: PRIMARY CAREMD [Primary Care Provider] - 3-5 Days HAI GHOSH MD [Staff Physician] - 14 Days Prescriptions: AtorvaSTATin 20 mg PO DAILY #30 tablet Aspirin EC [Halfprin EC] 81 mg PO DAILY #30 tablet Omeprazole 40 mg PO DAILY #30
[2020-01-07 15:54] VITALS: BP 126/65
[2020-01-08] MEDS ORDERED: PANTOPRAZOLE 40 MG TAB PO SCH (10:00)
== END 2020-01-07 16:35 | disposition home or self-care (01) ==
LOC: ED 05:31 → 4A 11:50
PROVIDERS: ADMIT Internal Medicine; ATTEND Internal Medicine
DX: R07.89 Other chest pain (principal); I11.0 Hypertensive heart disease with heart failure; I50.9 Heart failure, unspecified; F41.1 Generalized anxiety disorder; K21.9 Gastro-esophageal reflux disease without esophagitis; K59.00 Constipation, unspecified; F32.9 Major depressive disorder, single episode, unspecified; G89.4 Chronic pain syndrome; E78.5 Hyperlipidemia, unspecified; F17.200 Nicotine dependence, unspecified, uncomplicated; Z23 Encounter for immunization; Z71.6 Tobacco abuse counseling; Z79.82 Long term (current) use of aspirin; Z79.899 Other long term (current) drug therapy; Z88.2 Allergy status to sulfonamides; Z88.0 Allergy status to penicillin
CPT/HCPCS: 36415; 71045; 80048; 80061; 80076; 81001; 82962; 83036; 83735; 83880; 84484; 85025; 85379; 85610; 85730; 87641; 90471; 90732; 93005; 93458; 94640; 96372; 96374; 96375; 96376; 99285; 99406; A9270; C1894; C9113; G0378; J1644; J1940; J2250; J2270; J3010; J7040; Q9967

== ENCOUNTER 2020-03-20 04:25 | Emergency (ER) | payer MEDICARE ==
[2020-03-20] MEDS ORDERED: MECLIZINE 25 MG TAB PO ONE (07:35)
--- NOTE | 2020-03-20 08:36 | XRay Report ---
ABDOMEN SUPINE INDICATION / CLINICAL INFORMATION: llq pain. COMPARISON: None available. FINDINGS: Bowel gas pattern is nonspecific, not indicative of obstruction. There does appear to be considerable fecal material throughout the colon, suggesting constipation. No gross abnormal mass. Signer Name: Pranay Singleton MD Signed: 03/20/2020 8:32 AM Workstation Name: [id number]
--- NOTE | 2020-03-20 08:48 | Emergency Department Report ---
ED General Adult HPI - General Chief complaint: Dizziness Stated complaint: DIZZINESS Time Seen by Provider: 03/20/20 07:34 Source: EMS Mode of arrival: Wheelchair Limitations: No Limitations - History of Present Illness Initial comments: Patient is a 64-year-old female who is presenting with multiple complaints. Patient states she is under a great deal of stress lately has been feeling very dizzy. Her mother is dying and hospice care. Patient is been crying all night she has a headache and sometimes she feels just a spinning sensation with nausea. She denies any vomiting diarrhea cough cold congestion fevers or chills. Patient also is complaining of 2 days of left lower quadrant discomfort. She denies dysuria. Patient states that she he is feeling some mild constipation and straining with bowel movements. - Related Data Home Medications Medication Instructions Recorded Confirmed Last Taken Lisinopril 2.5 mg PO DAILY 01/05/20 03/20/20 Unknown HYDROcodone/ACETAMINOPHEN 1 each PO DAILY 03/20/20 03/20/20 Unknown [Hydrocodone-Acetamin 7.5-300] Previous Rx's Medication Instructions Recorded Last Taken Type AtorvaSTATin 20 mg PO DAILY #30 tablet 01/06/20 Unknown Rx Omeprazole 40 mg PO DAILY #30 01/06/20 Unknown Rx Docusate Sodium [Colace] 100 mg PO BID #30 capsule 03/20/20 Unknown Rx hydrOXYzine PAMOATE [Vistaril] 25 mg PO Q6HR PRN #12 capsule 03/20/20 Unknown Rx Allergies Allergy/AdvReac Type Severity Reaction Status Date / Time Penicillins Allergy Dizziness Verified 03/20/20 07:34 Sulfa (Sulfonamide Allergy Dizziness Verified 03/20/20 07:34 Antibiotics) ED Review of Systems ROS: Stated complaint: DIZZINESS Other details as noted in HPI Comment: All other systems reviewed and negative ED Past Medical Hx - Past Medical History Hx Hypertension: Yes Hx Congestive Heart Failure: No Hx Diabetes: No Hx GERD: Yes Hx Kidney Stones: Yes Hx Psychiatric Treatment: Yes (depression) Hx Asthma: No Hx COPD: No Additional medical history: Pt. recently homeless currently at [employer] in program. This is populated from her previous medical record. Patient states that she lives alone "with a cat". - Surgical History Additional Surgical History: Hysterectomy. SURGERY FOR KIDNEY STONES - Social History Smoking Status: Current Every Day Smoker Substance Use Type: None - Medications Home Medications: Home Medications Medication Instructions Recorded Confirmed Last Taken Type Lisinopril 2.5 mg PO DAILY 01/05/20 03/20/20 Unknown History AtorvaSTATin 20 mg PO DAILY #30 tablet 01/06/20 03/20/20 Unknown Rx Omeprazole 40 mg PO DAILY #30 01/06/20 03/20/20 Unknown Rx Docusate Sodium [Colace] 100 mg PO BID #30 capsule 03/20/20 Unknown Rx HYDROcodone/ACETAMINOPHEN 1 each PO DAILY 03/20/20 03/20/20 Unknown History [Hydrocodone-Acetamin 7.5-300] hydrOXYzine PAMOATE [Vistaril] 25 mg PO Q6HR PRN #12 capsule 03/20/20 Unknown Rx ED Physical Exam - General Limitations: No Limitations General appearance: alert, in no apparent distress - Head Head exam: Present: atraumatic, normocephalic - Eye Eye exam: Present: normal appearance, PERRL, EOMI - ENT ENT exam: Present: mucous membranes moist - Neck Neck exam: Present: normal inspection - Respiratory Respiratory exam: Present: normal lung sounds bilaterally. Absent: respiratory distress, wheezes, rales, rhonchi - Cardiovascular Cardiovascular Exam: Present: regular rate, normal rhythm, normal heart sounds. Absent: systolic murmur, diastolic murmur, rubs, gallop - GI/Abdominal GI/Abdominal exam: Present: soft, tenderness (LLQ), normal bowel sounds. Absent: distended, guarding, rebound - Extremities Exam Extremities exam: Present: normal inspection - Back Exam Back exam: Present: normal inspection - Neurological Exam Neurological exam: Present: alert, oriented X3 - Psychiatric Psychiatric exam: Present: normal affect, normal mood - Skin Skin exam: Present: warm, dry, intact, normal color. Absent: rash ED Course Vital Signs 03/20/20 03/20/20 03/20/20 04:54 07:28 08:01 Temperature 97.9 F Pulse Rate 79 86 Pulse Rate [ 77 Lying] Pulse Rate [ 85 Sitting] Pulse Rate [ 95 H Standing] Respiratory 18 20 Rate Blood Pressure 117/69 Blood Pressure 130/54 [Left] Blood Pressure 133/64 [Lying] Blood Pressure 132/59 [Sitting] Blood Pressure 124/76 [Standing] O2 Sat by Pulse 95 94 Oximetry 03/20/20 08:45 Temperature Pulse Rate 81 Pulse Rate [ Lying] Pulse Rate [ Sitting] Pulse Rate [ Standing] Respiratory 18 Rate Blood Pressure 125/74 Blood Pressure [Left] Blood Pressure [Lying] Blood Pressure [Sitting] Blood Pressure [Standing] O2 Sat by Pulse 93 Oximetry ED Medical Decision Making - Lab Data Lab Results 03/20/20 Range/Units 08:58 Urine Color Yellow (Yellow) Urine Turbidity Clear (Clear) Urine pH 5.0 (5.0-7.0) Ur Specific [place] 1.015 (1.003-1.030) Urine Protein <15 mg/dl (Negative) mg/dL Urine Glucose (UA) Neg (Negative) mg/dL Urine Ketones Neg (Negative) mg/dL Urine Blood Sm (Negative) Urine Nitrite Neg (Negative) Urine Bilirubin Neg (Negative) Urine Urobilinogen < 2.0 (<2.0) mg/dL Ur Leukocyte Esterase Neg (Negative) Urine WBC (Auto) 1.0 (0.0-6.0) /HPF Urine RBC (Auto) 3.0 (0.0-6.0) /HPF U Epithel Cells (Auto) 4.0 (0-13.0) /HPF Urine Bacteria (Auto) 1+ (Negative) /HPF Urine Mucus Few /HPF - Radiology Data Patient: MEGHANA SEGOVIA MR#: [id number] : 1955 Acct:[id number] Age/Sex: 64 / F ADM Date: 03/20/20 Loc: ED Attending Dr: Ordering Physician: JAMES TRONCOSO MD Date of Service: 03/20/20 Procedure(s): XR abdomen 1V ap Accession Number(s): [id number] cc: JAMES TRONCOSO MD Fluoro Time In Minutes: ABDOMEN SUPINE INDICATION / CLINICAL INFORMATION: llq pain. COMPARISON: None available. FINDINGS: Bowel gas pattern is nonspecific, not indicative of obstruction. There does appe ar to be considerable fecal material throughout the colon, suggesting constipation. No gross abnormal mass. Signer Name: Pranay Singleton MD Signed: 03/20/2020 8:32 AM Workstation Name: [id number] - Medical Decision Making Patient to be started on stool softener to help with her constipation. This likely is the cause of the patient's left lower quadrant abdominal pain. Patient also given a few pills of hydroxyzine to help with anxiety and she is state and she is very stressed from her mother's illness. Patient stable for discharge Critical care attestation.: If time is entered above; I have spent that time in minutes in the direct care of this critically ill patient, excluding procedure time. ED Disposition Clinical Impression: Anxiety as acute reaction to exceptional stress Constipation Qualifiers: Constipation type: slow transit constipation Qualified Code(s): K59.01 - Slow transit constipation Abdominal pain Qualifiers: Abdominal location: left lower quadrant Qualified Code(s): R10.32 - Left lower quadrant pain Disposition: DC- TO HOME OR SELFCARE Is pt being admited?: No Does the pt Need Aspirin: No Condition: Stable Instructions: Stress (ED), Constipation (ED), High Fiber Diet (ED) Referrals: DUNCAN LEMOS MD [Primary Care Provider] - 3-5 Days Time of Disposition: 09:29
[2020-03-20 09:17] LABS: Bacteria,Urine 1+ /HPF (Negative); Bilirubin,Urine NEG (Negative); Blood,Urine SM (Negative); Color,Urine Yellow (Yellow); Mucus,Urine FEW /HPF; Protein,Urine <15 mg/dL mg/dL (Negative); Urobilinogen,Urine < 2.0 mg/dL (<2.0)
[2020-03-20 09:36] VITALS: BP 123/69
== END 2020-03-20 10:16 | disposition home or self-care (01) ==
LOC: ED 04:25
DX: K59.00 Constipation, unspecified (principal); F41.1 Generalized anxiety disorder; F43.0 Acute stress reaction; R10.32 Left lower quadrant pain; I10 Essential (primary) hypertension; K21.9 Gastro-esophageal reflux disease without esophagitis; F32.9 Major depressive disorder, single episode, unspecified; F17.200 Nicotine dependence, unspecified, uncomplicated; Z87.442 Personal history of urinary calculi; Z90.710 Acquired absence of both cervix and uterus; Z98.890 Other specified postprocedural states; Z79.899 Other long term (current) drug therapy; Z88.0 Allergy status to penicillin; Z88.2 Allergy status to sulfonamides
CPT/HCPCS: 74018; 81001

== ENCOUNTER 2020-08-22 22:37 | Emergency (ER) | payer MEDICARE ==
--- NOTE | 2020-08-22 23:37 | Event Note ---
ED Screening Note Date of service: 08/22/20 Time: 23:35 ED Screening Note: 64-year-old female with a past medical history of COPD hypertension presents to the emergency room for shortness of breath. Patient is still smoking cigarettes. Denies any fever chill. This initial assessment/diagnostic orders/clinical plan/treatment(s) is/are subject to change based on patients health status, clinical progression and re- assessment by fellow clinical providers in the ED. Further treatment and workup at subsequent clinical providers discretion. Patient/guardian urged not to elope from the ED as their condition may be serious if not clinically assessed and managed. Initial orders include:
[2020-08-23 00:29] LABS: Hematocrit 38.7 % (30.3-42.9); Hemoglobin 12.9 gm/dl (10.1-14.3); Mean Corpuscular HGB Conc 33 % (30-34); Mean Corpuscular Volume 90 fl (79-97); Platelet Count 253 K/mm3 (140-440); Red Blood Count 4.29 M/mm3 (3.65-5.03); Red Cell Distribution Width 14.9 % (13.2-15.2)
--- NOTE | 2020-08-23 00:35 | XRay Report ---
CHEST 2 VIEWS INDICATION: Shortness of breath. COMPARISON: 07/07/2019 FINDINGS: Support devices: None. Heart: Stable cardiomegaly. Lungs/Pleura: Increased interstitial markings remain. No acute infiltrate. No significant pleural e ffusion. IMPRESSION: No acute findings. Signer Name: London Garnica MD Signed: 08/23/2020 12:31 AM Workstation Name: [id number]
[2020-08-23 00:46] LABS: Blood Urea Nitrogen 13 mg/dL (7-17); Calcium 9.1 mg/dL (8.4-10.2); Hemolysis Index 6
[2020-08-23 00:50] LABS: BUN/Creatinine Ratio 19
--- NOTE | 2020-08-23 04:28 | Emergency Department Report ---
ED Shortness of Breath HPI - General Chief Complaint: Dyspnea/Respdistress Stated Complaint: SONNY Time Seen by Provider: 08/23/20 03:53 Source: patient Mode of arrival: Stretcher Limitations: No Limitations - History of Present Illness Initial Comments: IChief complaint: " I had a hard time believing. My machine is broken." HPI: This is a 64-year-old female with history of COPD, hypertension, tobacco dependence, GERD, dyslipidemia, depression, chronic pain syndrome, CHF who presents with shortness of breath and wheezing. She explained that her neb ulizer machine requires a hose which is broken. She has inhalers which she admits is difficult for her to use. She denies cough fever chest pain. She feels better at this time. She desires to be discharged. She stated that she missed her recent pulmonology appointment. MD Complaint: shortness of breath -: Gradual, days(s) (1) Severity: moderate Consistency: now resolved Improves With: bronchodilators Known History Of: COPD Associated Symptoms: denies other symptoms Treatments Prior to Arrival: bronchodilator - Related Data Home Medications Medication Instructions Recorded Confirmed Last Taken Lisinopril 2.5 mg PO DAILY 01/05/20 03/20/20 Unknown HYDROcodone/ACETAMINOPHEN 1 each PO DAILY 03/20/20 03/20/20 Unknown [Hydrocodone-Acetamin 7.5-300] Previous Rx's Medication Instructions Recorded Last Taken Type AtorvaSTATin 20 mg PO DAILY #30 tablet 01/06/20 Unknown Rx Omeprazole 40 mg PO DAILY #30 01/06/20 Unknown Rx Docusate Sodium [Colace] 100 mg PO BID #30 capsule 03/20/20 Unknown Rx hydrOXYzine PAMOATE [Vistaril] 25 mg PO Q6HR PRN #12 capsule 03/20/20 Unknown Rx DOXYCYCLINE Hyclate [Vibramycin 100 mg PO Q12HR 7 Days #14 capsule 08/23/20 Unknown Rx CAP] Prednisone [predniSONE 10 mg 10 mg PO .TAPER #1 tab.ds.pk 08/23/20 Unknown Rx (6-Day Pack, 21 Tabs)] Allergies Allergy/AdvReac Type Severity Reaction Status Date / Time Penicillins Allergy Dizziness Verified 03/20/20 07:34 Sulfa (Sulfonamide Allergy Dizziness Verified 03/20/20 07:34 Antibiotics) ED Review of Systems ROS: Stated complaint: SONNY Other details as noted in HPI Comment: All other systems reviewed and negative Constitutional: denies: fever, malaise Respiratory: shortness of breath Cardiovascular: denies: chest pain, dyspnea on exertion Gastrointestinal: denies: abdominal pain, nausea, vomiting ED Past Medical Hx - Past Medical History Previous Medical History?: Yes Hx Hypertension: Yes Hx Congestive Heart Failure: No Hx Diabetes: No Hx GERD: Yes Hx Kidney Stones: Yes Hx Psychiatric Treatment: Yes (depression) Hx Asthma: No Hx COPD: Yes Additional medical history: Chronic back pain. High Cholesterol - Surgical History Past Surgical History?: Yes Additional Surgical History: Hysterectomy. SURGERY FOR KIDNEY STONES - Social History Smoking Status: Current Every Day Smoker Substance Use Type: Alcohol - Medications Home Medications: Home Medications Medication Instructions Recorded Confirmed Last Taken Type Lisinopril 2.5 mg PO DAILY 01/05/20 03/20/20 Unknown History AtorvaSTATin 20 mg PO DAILY #30 tablet 01/06/20 03/20/20 Unknown Rx Omeprazole 40 mg PO DAILY #30 01/06/20 03/20/20 Unknown Rx Docusate Sodium [Colace] 100 mg PO BID #30 capsule 03/20/20 Unknown Rx HYDROcodone/ACETAMINOPHEN 1 each PO DAILY 03/20/20 03/20/20 Unknown History [Hydrocodone-Acetamin 7.5-300] hydrOXYzine PAMOATE [Vistaril] 25 mg PO Q6HR PRN #12 capsule 03/20/20 Unknown Rx DOXYCYCLINE Hyclate [Vibramycin 100 mg PO Q12HR 7 Days #14 capsule 08/23/20 Unknown Rx CAP] Prednisone [predniSONE 10 mg 10 mg PO .TAPER #1 tab.ds.pk 08/23/20 Unknown Rx (6-Day Pack, 21 Tabs)] ED Physical Exam - General Limitations: No Limitations General appearance: alert, in no apparent distress, other (Appears comfortable, laying on left side sleeping, easily arousable, talkative once awake) - Head Head exam: Present: atraumatic, normocephalic - Eye Eye exam: Present: normal appearance - ENT ENT exam: Present: mucous membranes moist - Neck Neck exam: Present: normal inspection - Respiratory Respiratory exam: Present: normal lung sounds bilaterally. Absent: respiratory distress, wheezes, rales, rhonchi, stridor - Cardiovascular Cardiovascular Exam: Present: regular rate, normal rhythm, normal heart sounds. Absent: systolic murmur, diastolic murmur, rubs, gallop - GI/Abdominal GI/Abdominal exam: Present: soft, normal bowel sounds. Absent: distended, tenderness, guarding, rebound - Extremities Exam Extremities exam: Present: normal inspection - Neurological Exam Neurological exam: Present: alert, oriented X3 - Psychiatric Psychiatric exam: Present: normal affect, normal mood - Skin Skin exam: Present: warm, dry, intact, normal color. Absent: rash ED Course Vital Signs 08/22/20 23:34 Temperature 97.7 F Pulse Rate 84 Respiratory 16 Rate Blood Pressure 141/77 O2 Sat by Pulse 93 Oximetry ED Medical Decision Making - Lab Data Result diagrams: 08/22/20 23:59 08/22/20 23:59 - Radiology Data Radiology results: report reviewed Chest radiograph no acute findings according to radiology impression - Medical Decision Making Acute COPD exacerbation: Symptoms resolved prior to my evaluation. Patient has clear breath sounds. I have prescribed doxycycline and prednisone taper. Critical care attestation.: If time is entered above; I have spent that time in minutes in the direct care of this critically ill patient, excluding procedure time. ED Disposition Clinical Impression: COPD exacerbation Disposition: DC-01 TO HOME OR SELFCARE Is pt being admited?: No Does the pt Need Aspirin: No Condition: Stable Instructions: Chronic Obstructive Pulmonary Disease (ED), Chronic Obstructive Pulmonary Disease, [id number] Prescriptions: Prednisone [predniSONE 10 mg (6-Day Pack, 21 Tabs)] 10 mg PO .TAPER #1 tab.ds.pk DOXYCYCLINE Hyclate [Vibramycin CAP] 100 mg PO Q12HR 7 Days #14 capsule Referrals: PRIMARY CARE, [Primary Care Provider] - 3-5 Days
[2020-08-23 04:55] VITALS: BP 145/82
== END 2020-08-23 04:54 | disposition home or self-care (01) ==
LOC: ED 22:37
DX: J44.1 Chronic obstructive pulmonary disease with (acute) exacerbation (principal); I10 Essential (primary) hypertension; K21.9 Gastro-esophageal reflux disease without esophagitis; F32.9 Major depressive disorder, single episode, unspecified; F17.200 Nicotine dependence, unspecified, uncomplicated; Z90.710 Acquired absence of both cervix and uterus; Z98.890 Other specified postprocedural states; Z79.899 Other long term (current) drug therapy; Z88.0 Allergy status to penicillin; Z88.2 Allergy status to sulfonamides
CPT/HCPCS: 36415; 71046; 80048; 85027

== ENCOUNTER 2020-11-27 08:35 | Emergency (ER) | payer MEDICARE ==
--- NOTE | 2020-11-27 09:22 | Emergency Department Report ---
ED N/V/D HPI - General Chief complaint: Nausea/Vomiting/Diarrhea Stated complaint: GENERAL SICKNESS/N/V/D Time Seen by Provider: 11/27/20 09:15 Source: patient Mode of arrival: Wheelchair Limitations: No Limitations - History of Present Illness Initial comments: 65-year-old female presents to ED with complaint of vomiting and diarrhea since yesterday. Patient denies any fever. She reports pain and her sides and back. Patient states "I think I have some kind of stomach virus." MD complaint: nausea, vomiting, diarrhea -: days(s) (2) Description of Vomiting: food contents Description of Diarrhea: water Associated Abdominal Pain: No Severity: moderate Consistency: constant Improves with: none Worsens with: eating Associated Symptoms: nausea/vomiting. denies: fever/chills - Related Data Home Medications Medication Instructions Recorded Confirmed Last Taken Lisinopril 2.5 mg PO DAILY 01/05/20 03/20/20 Unknown HYDROcodone/ACETAMINOPHEN 1 each PO DAILY 03/20/20 03/20/20 Unknown [Hydrocodone-Acetamin 7.5-300] Previous Rx's Medication Instructions Recorded Last Taken Type AtorvaSTATin 20 mg PO DAILY #30 tablet 01/06/20 Unknown Rx Omeprazole 40 mg PO DAILY #30 01/06/20 Unknown Rx Docusate Sodium [Colace] 100 mg PO BID #30 capsule 03/20/20 Unknown Rx hydrOXYzine PAMOATE [Vistaril] 25 mg PO Q6HR PRN #12 capsule 03/20/20 Unknown Rx DOXYCYCLINE Hyclate [Vibramycin 100 mg PO Q12HR 7 Days #14 capsule 08/23/20 Unknown Rx CAP] Prednisone [predniSONE 10 mg 10 mg PO .TAPER #1 tab.ds.pk 08/23/20 Unknown Rx (6-Day Pack, 21 Tabs)] Dicyclomine [Bentyl] 20 mg PO QID PRN #20 tablet 11/27/20 Unknown Rx Ondansetron [Zofran Odt] 4 mg PO Q8HR PRN #20 tab.rapdis 11/27/20 Unknown Rx Allergies Allergy/AdvReac Type Severity Reaction Status Date / Time Penicillins Allergy Dizziness Verified 11/27/20 08:42 Sulfa (Sulfonamide Allergy Dizziness Verified 11/27/20 08:42 Antibiotics) ED Review of Systems ROS: Stated complaint: GENERAL SICKNESS/N/V/D Other details as noted in HPI Comment: All other systems reviewed and negative Constitutional: denies: fever Gastrointestinal: abdominal pain, nausea, vomiting, diarrhea Musculoskeletal: back pain ED Past Medical Hx - Past Medical History Hx Hypertension: Yes Hx Congestive Heart Failure: No Hx Diabetes: No Hx GERD: Yes Hx Kidney Stones: Yes Hx Psychiatric Treatment: Yes (depression) Hx Asthma: No Hx COPD: Yes Additional medical history: Chronic back pain. High Cholesterol - Surgical History Additional Surgical History: Hysterectomy. SURGERY FOR KIDNEY STONES - Social History Smoking Status: Current Every Day Smoker Substance Use Type: None - Medications Home Medications: Home Medications Medication Instructions Recorded Confirmed Last Taken Type Lisinopril 2.5 mg PO DAILY 01/05/20 03/20/20 Unknown History AtorvaSTATin 20 mg PO DAILY #30 tablet 01/06/20 03/20/20 Unknown Rx Omeprazole 40 mg PO DAILY #30 01/06/20 03/20/20 Unknown Rx Docusate Sodium [Colace] 100 mg PO BID #30 capsule 03/20/20 Unknown Rx HYDROcodone/ACETAMINOPHEN 1 each PO DAILY 03/20/20 03/20/20 Unknown History [Hydrocodone-Acetamin 7.5-300] hydrOXYzine PAMOATE [Vistaril] 25 mg PO Q6HR PRN #12 capsule 03/20/20 Unknown Rx DOXYCYCLINE Hyclate [Vibramycin 100 mg PO Q12HR 7 Days #14 capsule 08/23/20 Unknown Rx CAP] Prednisone [predniSONE 10 mg 10 mg PO .TAPER #1 tab.ds.pk 08/23/20 Unknown Rx (6-Day Pack, 21 Tabs)] Dicyclomine [Bentyl] 20 mg PO QID PRN #20 tablet 11/27/20 Unknown Rx Ondansetron [Zofran Odt] 4 mg PO Q8HR PRN #20 tab.rapdis 11/27/20 Unknown Rx ED Physical Exam - General Limitations: No Limitations General appearance: alert, in no apparent distress - Head Head exam: Present: atraumatic, normocephalic - Eye Eye exam: Present: normal appearance, EOMI - ENT ENT exam: Present: mucous membranes moist - Neck Neck exam: Present: normal inspection - Respiratory Respiratory exam: Present: normal lung sounds bilaterally. Absent: respiratory distress - Cardiovascular Cardiovascular Exam: Present: regular rate, normal rhythm - GI/Abdominal GI/Abdominal exam: Present: soft. Absent: distended, tenderness - Extremities Exam Extremities exam: Present: normal inspection - Back Exam Back exam: Present: CVA tenderness (R), CVA tenderness (L) - Neurological Exam Neurological exam: Present: alert, oriented X3 - Psychiatric Psychiatric exam: Present: normal affect, normal mood - Skin Skin exam: Present: warm, dry, intact, normal color ED Course Vital Signs 11/27/20 11/27/20 11/27/20 08:45 09:17 09:19 Temperature 97.9 F Pulse Rate 90 68 Respiratory 22 20 Rate Blood Pressure 121/78 Blood Pressure [Left] O2 Sat by Pulse 96 95 Oximetry 11/27/20 11:52 Temperature Pulse Rate 85 Respiratory 18 Rate Blood Pressure Blood Pressure 128/78 [Left] O2 Sat by Pulse 95 Oximetry ED Medical Decision Making - Lab Data Result diagrams: 11/27/20 09:25 11/27/20 09:25 - Radiology Data Radiology results: report reviewed, image reviewed - Medical Decision Making 65-year-old female presents to ED with vomiting and diarrhea. Patient has mildly elevated WBCs at 13, otherwise remainder of labs are unremarkable. CT scan shows mild gastroenteritis. Patient given IV fluids, morphine, Zofran, Imodium . No episodes of vomiting or diarrhea here in the ED. Patient will be discharged at this time. Outpatient follow-up advised, precautions given. - Differential Diagnosis Gastroenteritis, bowel obstruction, UTI, diverticulitis Critical care attestation.: If time is entered above; I have spent that time in minutes in the direct care of this critically ill patient, excluding procedure time. ED Disposition Clinical Impression: Acute gastroenteritis Disposition: - TO HOME OR SELFCARE Is pt being admited?: No Condition: Stable Instructions: Viral Gastroenteritis, Adult Prescriptions: Dicyclomine [Bentyl] 20 mg PO QID PRN #20 tablet PRN Reason: abdominal pain Ondansetron [Zofran Odt] 4 mg PO Q8HR PRN #20 tab.rapdis PRN Reason: Vomiting Referrals: PRIMARY CARE, [Primary Care Provider] - 3-[address] [facility] [Provider Group] - 3-5 Days Time of Disposition: 11:51
[2020-11-27] MEDS ORDERED: SODIUM CHLORIDE 0.9% 1000 ML 1,000 ML IV ONE (09:23)
[2020-11-27] MEDS ORDERED: LOPERAMIDE 2 MG CAP PO ONE (09:23)
[2020-11-27] MEDS ORDERED: ONDANSETRON 4 MG/2 ML INJ IV ONE (09:23)
[2020-11-27] MEDS ORDERED: MORPHINE 2 MG/1 ML INJ IV ONE (09:23)
[2020-11-27 09:52] LABS: Basophils # (Auto) 0.1 K/mm3 (0.0-0.1); Basophils % (Auto) 0.7 % (0.0-1.8); Eosinophils # (Auto) 0.4 K/mm3 (0.0-0.4); Eosinophils % (Auto) 3.3 % (0.0-4.3); Hematocrit 40.7 % (30.3-42.9); Hemoglobin 13.7 gm/dl (10.1-14.3); Lymphocytes # (Auto) 1.5 K/mm3 (1.2-5.4); Mean Corpuscular HGB Conc 34 % (30-34); Mean Corpuscular Volume 91 fl (79-97); Monocytes # (Auto) 0.5 K/mm3 (0.0-0.8); Monocytes % (Auto) 3.8 % (0.0-7.3); Platelet Count 256 K/mm3 (140-440); Red Blood Count 4.46 M/mm3 (3.65-5.03); Red Cell Distribution Width 14.6 % (13.2-15.2)
[2020-11-27 10:08] LABS: Bilirubin,Urine NEG (Negative); Blood,Urine SM (Negative); Color,Urine Yellow (Yellow); Mucus,Urine 1+ /HPF; Urobilinogen,Urine < 2.0 mg/dL (<2.0)
[2020-11-27 10:10] LABS: Alanine Aminotransferase 29 units/L (7-56); Albumin 4.6 g/dL (3.9-5); Blood Urea Nitrogen 13 mg/dL (7-17); Calcium 9.6 mg/dL (8.4-10.2); Hemolysis Index 3
[2020-11-27 10:11] LABS: BUN/Creatinine Ratio 19
--- NOTE | 2020-11-27 11:41 | Cat Scan Report ---
CT ABDOMEN AND PELVIS WITH IV CONTRAST INDICATION: vomiting 100 ml omni 300 . Abdominal pain COMPARISON: None available. TECHNIQUE: Axial CT images were obtained through the abdomen and pelvis after 100 mL IV contrast. All CT scans a t this location are performed using CT dose reduction for ALARA by means of automated exposure contro l. FINDINGS -- ABDOMEN: Lung Bases: No acute abnormality. Liver: Normal. Gallbladder: Normal. Bile Ducts: Normal. Pancreas: Normal. Spleen: Normal. Adrenals: Normal. Right Kidney and Proximal Ureter: 4 cm cyst within the upper pole the right kidney. Left Kidney and Proximal Ureter: Minimally complex cyst and calculus. Stomach and Bowel: Mostly collapsed but there is some increased mucosal thickening involving the uppe r GI tract and proximal small bowel. Lymph Nodes: No significant adenopathy. Aorta: No significant abnormality. IVC: Normal. Additional Findings: None. FINDINGS -- PELVIS: Urinary Bladder and Distal Ureters: Normal. Reproductive Organs: No acute abnormality. Appendix: Not well identified. Bowel: No acute abnormality. Free Fluid: None. Lymph Nodes: No significant adenopathy. Additional Findings: None. Skeletal System: No acute abnormality. IMPRESSION: Findings suspicious for mild gastroenteritis. Signer Name: Tavo Molina MD Signed: 11/27/2020 11:36 AM Workstation Name: [id number]
[2020-11-27 11:53] VITALS: BP 128/78
== END 2020-11-27 12:07 | disposition home or self-care (01) ==
LOC: ED 08:35
DX: K52.9 Noninfective gastroenteritis and colitis, unspecified (principal); F32.9 Major depressive disorder, single episode, unspecified; I10 Essential (primary) hypertension; K21.9 Gastro-esophageal reflux disease without esophagitis; J44.9 Chronic obstructive pulmonary disease, unspecified; E78.00 Pure hypercholesterolemia, unspecified; F17.200 Nicotine dependence, unspecified, uncomplicated; Z90.710 Acquired absence of both cervix and uterus; Z79.899 Other long term (current) drug therapy; Z88.0 Allergy status to penicillin; Z88.2 Allergy status to sulfonamides; Z98.890 Other specified postprocedural states
CPT/HCPCS: 36415; 74177; 80053; 81001; 83690; 85025; 96361; 96374; 96375; 99284; J2270; J2405; J7030; Q9967

== ENCOUNTER 2021-01-10 10:32 | Emergency (ER) | payer MEDICARE ==
--- NOTE | 2021-01-10 11:19 | Emergency Department Report ---
ED General Adult HPI - General Chief complaint: Pain General Stated complaint: Chest wall pain PUI?: No Time Seen by Provider: 01/10/21 11:17 Source: patient, RN notes reviewed, old records reviewed Mode of arrival: Stretcher Limitations: No Limitations - History of Present Illness Initial comments: During the history and physical examination, I am chaperoned by Leatha Alcantar Past medical history includes GERD, obesity, COPD, hyperlipidemia. The patient had a cardiac catheterization at this hospital, December 2019, which showed minimal nonobstructive irregularities, ejection fraction of 60 to 65%. She has also had 2 CT scans of the chest at this hospital in the past which have been negative for pulmonary embolism. The patient presents to the ER today with complaint of constant chest wall pain, which is nontraumatic, present since 7:00 PM yesterday. Her chest wall pain does not radiate to the back, arms or neck. There is no vomiting or diaphoresis. No travel, surgery, immobilization, leg pain or leg swelling. She also describes left lateral thorax pain. Her pain is mostly parasternal, involves the right medial aspect of her right breast. Denies headache, new neck pain, abdominal pain, vomiting, Covid symptomatology. She has not really taken anything elkh-uvy-dlywfrv for this. Her pain increases with palpation. It decreases with rest. Reports compliance with her outpatient medications. -: Gradual Location: chest Radiation: non-radiation Consistency: constant Improves with: rest Worsens with: movement (Palpation and movement) - Related Data Home Medications Medication Instructions Recorded Confirmed Last Taken Lisinopril 2.5 mg PO DAILY 01/05/20 03/20/20 Unknown Previous Rx's Medication Instructions Recorded Last Taken Type AtorvaSTATin 20 mg PO DAILY #30 tablet 01/06/20 Unknown Rx Omeprazole 40 mg PO DAILY #30 01/06/20 Unknown Rx Docusate Sodium [Colace] 100 mg PO BID #30 capsule 03/20/20 Unknown Rx hydrOXYzine PAMOATE [Vistaril] 25 mg PO Q6HR PRN #12 capsule 03/20/20 Unknown Rx Prednisone [predniSONE 10 mg 10 mg PO .TAPER #1 tab.ds.pk 08/23/20 Unknown Rx (6-Day Pack, 21 Tabs)] Dicyclomine [Bentyl] 20 mg PO QID PRN #20 tablet 11/27/20 Unknown Rx Ondansetron [Zofran Odt] 4 mg PO Q8HR PRN #20 tab.rapdis 11/27/20 Unknown Rx Albuterol Sulfate [Proair 90 mcg IH Q4HR PRN #2 aer.pow.ba 01/10/21 Unknown Rx Respiclick] DOXYCYCLINE Hyclate [Vibramycin 100 mg PO Q12HR 7 Days #14 capsule 01/10/21 Unknown Rx CAP] Allergies Allergy/AdvReac Type Severity Reaction Status Date / Time Penicillins Allergy Dizziness Verified 11/27/20 08:42 Sulfa (Sulfonamide Allergy Dizziness Verified 11/27/20 08:42 Antibiotics) ED Review of Systems ROS: Stated complaint: CHEST PAIN Other details as noted in HPI Constitutional: denies: fever Eyes: denies: eye discharge ENT: congestion Respiratory: cough (Chronic cough), shortness of breath (Chronic shortness of breath not new worse or different) Cardiovascular: chest pain (Chest wall pain) Gastrointestinal: denies: vomiting, hematemesis, melena, hematochezia Genitourinary: denies: dysuria Musculoskeletal: myalgia Neurological: weakness Psychiatric: anxiety Hematological/Lymphatic: denies: easy bleeding ED Past Medical Hx - Past Medical History Hx Hypertension: Yes Hx Congestive Heart Failure: No Hx Diabetes: No Hx GERD: Yes Hx Kidney Stones: Yes Hx Psychiatric Treatment: Yes (depression) Hx Asthma: No Hx COPD: Yes Additional medical history: Chronic back pain. High Cholesterol - Surgical History Additional Surgical History: Hysterectomy. SURGERY FOR KIDNEY STONES - Social History Smoking Status: Current Every Day Smoker Substance Use Type: None - Medications Home Medications: Home Medications Medication Instructions Recorded Confirmed Last Taken Type Lisinopril 2.5 mg PO DAILY 01/05/20 03/20/20 Unknown History AtorvaSTATin 20 mg PO DAILY #30 tablet 01/06/20 03/20/20 Unknown Rx Omeprazole 40 mg PO DAILY #30 01/06/20 03/20/20 Unknown Rx Docusate Sodium [Colace] 100 mg PO BID #30 capsule 03/20/20 Unknown Rx hydrOXYzine PAMOATE [Vistaril] 25 mg PO Q6HR PRN #12 capsule 03/20/20 Unknown Rx Prednisone [predniSONE 10 mg 10 mg PO .TAPER #1 tab.ds.pk 08/23/20 Unknown Rx (6-Day Pack, 21 Tabs)] Dicyclomine [Bentyl] 20 mg PO QID PRN #20 tablet 11/27/20 Unknown Rx Ondansetron [Zofran Odt] 4 mg PO Q8HR PRN #20 tab.rapdis 11/27/20 Unknown Rx Albuterol Sulfate [Proair 90 mcg IH Q4HR PRN #2 aer.pow.ba 01/10/21 Unknown Rx Respiclick] DOXYCYCLINE Hyclate [Vibramycin 100 mg PO Q12HR 7 Days #14 capsule 01/10/21 Unknown Rx CAP] ED Physical Exam - General Limitations: No Limitations General appearance: alert, in no apparent distress, obese - Head Head exam: Present: atraumatic, normocephalic - Eye Eye exam: Present: normal appearance, EOMI. Absent: nystagmus - ENT ENT exam: Present: normal exam, normal orophraynx, mucous membranes moist, normal external ear exam - Neck Neck exam: Present: normal inspection, full ROM. Absent: tenderness, meningismus - Respiratory Respiratory exam: Present: normal lung sounds bilaterally, chest wall tenderness. Absent: respiratory distress, wheezes, rales, rhonchi, stridor, decreased breath sounds - Cardiovascular Cardiovascular Exam: Present: regular rate, normal rhythm, normal heart sounds. Absent: bradycardia, tachycardia, irregular rhythm, systolic murmur, diastolic murmur, rubs, gallop - GI/Abdominal GI/Abdominal exam: Present: soft. Absent: distended, tenderness, guarding, rebound, rigid, pulsatile mass - Extremities Exam Extremities exam: Present: normal inspection, full ROM, other (2+ pulses noted in the bilateral upper and lower extremities. There is no palpable cord. negative Homans sign. Muscular compartments are soft. The pelvis is stable.). Absent: pedal edema, calf tenderness - Back Exam Back exam: Present: normal inspection, full ROM. Absent: tenderness, CVA tenderness (R), CVA tenderness (L), paraspinal tenderness, vertebral tenderness - Neurological Exam Neurological exam: Present: alert, other (No facial droop. Tongue midline. Extraocular movements intact bilaterally. Facial sensation intact to light touch in V1, V2, V3 distribution bilaterally. 5 and a 5 strength in 4 extremities. Sensation intact to light touch in 4 extremities.). Absent: motor sensory deficit - Psychiatric Psychiatric exam: Present: normal affect, normal mood, anxious - Skin Skin exam: Present: warm, dry, intact, normal color. Absent: rash ED Course Vital Signs 01/10/21 01/10/21 01/10/21 13:20 13:35 13:46 Temperature 97.9 F Pulse Rate 71 74 73 Respiratory 18 20 19 Rate Blood Pressure 101/51 Blood Pressure 98/43 100/50 [Right] O2 Sat by Pulse 95 98 94 Oximetry 01/10/21 01/10/21 01/10/21 14:00 14:16 14:30 Temperature Pulse Rate 75 76 78 Respiratory 15 18 20 Rate Blood Pressure 94/48 94/48 94/48 Blood Pressure [Right] O2 Sat by Pulse 89 91 93 Oximetry 01/10/21 15:21 Temperature Pulse Rate 80 Respiratory 18 Rate Blood Pressure Blood Pressure 102/60 [Right] O2 Sat by Pulse 96 Oximetry - Reevaluation(s) Reevaluation #1: 01/10/21 13:14 Differential diagnosis, including but not limited to: GERD, gastritis, hiatal hernia, pneumonia, costochondritis, coronary artery disease, pulmonary embolism. Assessment and plan: 65-year-old female who complains of chest wall pain left lateral thoracic pain. The patient had a cardiac catheterization last year which was essentially unremarkable. Her EKG is unchanged x2. Troponin is negative x1. Symptoms present for greater than 8 hours, acute myocardial infarction is ruled out as per the [employer] clinical policy (pain present for greater than 8 hours, therefore, acute HI ruled out. ) The patient is not currently tachycardic, tachypneic or hypoxic. She denies DVT and pulmonary embolism risk factors. She is low risk by Wells criteria for pulmonary embolism. However, given her left lateral thoracic pain, poor mobility at baseline, D-dimer sent, elevated, therefore, CT scan of the chest will be obtained. Of note, prior to my personal evaluation of this patient, she is noted to be on the cell phone, face timing and in no significant distress. I think pulmonary embolism is very unlikely. Aortic disease is very unlikely. Equal pulses in the upper and lower extremities. No pulsatile abdominal mass. Mediastinum is unremarkable on x-ray of the chest. 01/10/21 13:17 Age and vascular risk factors are reviewed and appreciated. Her heart score is also appreciated. However, given unremarkable cardiac catheterization last year, multiple negative troponins, multiple unchanged EKGs, I think it would be reasonable to have this patient follow-up with outpatient cardiology. 01/10/21 15:38 Patient reexamined. She is feeling improved. CT scan of the chest pending. Repeat troponin pending. Updated patient on plan of care. She has requested to eat. Reevaluation #2: 01/10/21 15:41 Blood pressure appears to be at baseline at this time. 01/10/21 16:14 Extensive discussion had with patient and sister regarding significance of CT scan findings. Cover empirically with doxycycline and albuterol. Patient gave consent to have the details of her medical care discussed with herself and with her sister. Specifically counseled on need to follow-up with outpatient pulmonology to exclude cancer, tumor, malignancy. Clinically have very low suspicion for pneumonia. Not hypoxic at this time. No vomiting at this time. Not encephalopathic at this time. Suitable for trial of outpatient management. ED Medical Decision Making - Lab Data Result diagrams: 01/10/21 11:48 01/10/21 11:48 Lab Results 01/10/21 01/10/21 01/10/21 Range/Units 11:48 11:48 11:48 WBC 7.8 (4.5-11.0) K/mm3 RBC 4.37 (3.65-5.03) M/mm3 Hgb 13.3 (10.1-14.3) gm/dl Hct 39.9 (30.3-42.9) % MCV 91 (79-97) fl MCH 30 (28-32) pg MCHC 33 (30-34) % RDW 15.1 (13.2-15.2) % Plt Count 259 (140-440) K/mm3 D-Dimer 300.33 H (0-234) ng/mlDDU Sodium 141 (137-145) mmol/L Potassium 5.2 H (3.6-5.0) mmol/L Chloride 107.2 H (98-107) mmol/L Carbon Dioxide 23 (22-30) mmol/L Anion Gap 16 mmol/L BUN 17 (7-17) mg/dL Creatinine 0.7 (0.6-1.2) mg/dL Estimated GFR > 60 ml/min BUN/Creatinine Ratio 24 % Glucose 103 H (65-100) mg/dL Calcium 9.2 (8.4-10.2) mg/dL Magnesium 2.00 (1.7-2.3) mg/dL Total Creatine Kinase 89 (30-135) units/L Troponin T < 0.010 (0.00-0.029) ng/mL - EKG Data -: EKG Interpreted by Me EKG shows normal: sinus rhythm Rate: normal - EKG Data 01/10/21 13:12 EKG #2 interpreted at 13: 04. Sinus rhythm, 75 bpm. Normal axis, normal intervals, poor R wave progression, low voltage, incomplete left bundle branch block. This is an abnormal EKG. This is not a STEMI. This is unchanged from EKG #1, obtained at 11: 0 5 AM. Both EKGs appear to be unchanged from prior EKG from 01/05/2020 - Radiology Data Radiology results: report reviewed, image reviewed CHEST 2 VIEWS 1145 INDICATION / CLINICAL INFORMATION: Chest Pain COMPARISON: 08/22/2020 FINDINGS: SUPPORT DEVICES: None. HEART / MEDIASTINUM: No significant abnormality. LUNGS / PLEURA: Diffuse increased interstitial markings are not significantly changed. No definite areas of consolidation are seen. Scarring is again seen in the left lateral base. No definite pleural effusion is seen. No pneumothorax. ADDITIONAL FINDINGS: No significant additional findings. IMPRESSION: No significant acute abnormality Signer Name: Jarad Khanna MD Signed: 01/10/2021 11:05 AM Workstation Name: [id number] CTA CHEST WITH CONTRAST INDICATION / CLINICAL INFORMATION: acute chest pain, copd + d dimer. TECHNIQUE: Axial CT images were obtained through the chest aft er injection of IV contrast. 3 plane MIP and/or 3D reconstructions were produced. All CT scans at this location are performed using CT dose reduction for ALARA by means of automated exposure control. COMPARISON: None available. FINDINGS: The pulmonary arteries are patent without filling defect or evidence for PTE. Heart and aorta appear normal. No pericardial effusion. Liver is enlarged with fatty infiltration. Large right renal cyst measures 4.7 cm. Celiac and SMA appear normal. Emphysematous changes seen within the lungs. Mild lower lobe atelectasis left greater than right. There is a prominent pulmonary nodule with mildly spiculated margins measuring 9 mm in the right lower lung on coronal images there is density in the left lower lung could represent atelectasis or infiltrate. IMPRESSION: 1. No CT evidence for pulmonary embolism. 2. Density within the left upper lung/lingula could represent infiltrate/atelectasis. The pulmonary arteries supplying this region appear patent. 2. 9 mm nodular density in the right lung. INCIDENTAL PULMONARY NODULE RECOMMENDATION RECOMMENDATION: Solid Nodule size >8 mm -- Single - Low Risk or High Risk Patient: Consider CT at 3 months, PET/CT, or tissue sampling Note These recommendations do not apply to lung cancer screening, patients with immunosuppression, or patients with known primary cancer. Note Newly detected indeterminate nodule in persons 35 years of age or older. Persons under the age of 35 should not receive follow-up unless there is a known primary cancer. Note Perifissural Nodule is a fissure-attached/sub pleural, homogeneous, solid nodule that has smooth margins and an oval, lentiform, or triangular shape. They represent about 20% of nodules detected in lung cancer screening, are invariably benign, and do not require follow-up. Nodules 10 mm or larger (or those with suspicious features) will continue to be managed based on the size criteria. Low Risk Patient = minimal or absent history of smoking and of other known risk factors. High Risk Patient = history of smoking or of other known risk factors. Nodule dimensions are average of long and short axes, rounded to the nearest millimeter. Based on 2017 Fleischner Society Guidelines found in Radiology 2017 284:228-243. https://doi.[email or web address]/radiol.[email or web address] https://www.ncbi.nlm.nih.gov/pmc/articles/TQO1124578/ Signer Name: Kvng hermosillo MD Signed: 01/10/2021 2:47 PM Workstation Name: [id number] Critical care attestation.: If time is entered above; I have spent that time in minutes in the direct care of this critically ill patient, excluding procedure time. ED Disposition Clinical Impression: Chest wall pain, History of COPD, Pulmonary nodule Disposition: DC-01 TO HOME OR SELFCARE Is pt being admited?: No Does the pt Need Aspirin: No Condition: Stable Instructions: Costochondritis Additional Instructions: Please continue current outpatient medications. Do not take them for medication for the next 2 days, if patient takes this medication. Patient may take ibuprofen, 400 mg by mouth, with food, every 6 hours as needed for pain, alternating with Tylenol/acetaminophen, 650 mg by mouth, every 4-6 hours as needed for pain, maximum daily dose to not exceed 3 g per 24 hours. Patient may take iide-mbk-hpflwme Pepcid, or Protonix as needed for pain. Please follow-up with your primary care doctor or legal instruments examiner for chest wall pain within the next 3 to 5 days. Please follow-up with a cotton tipper within the next 3 to 4 weeks for history of COPD. Please have a primary care doctor contact medical records department, and obtain copies of laboratory studies, radiology studies, and follow-up on nonemergent incidental abnormal findings. Please return to the emergency room right away with new pain, worsened pain, migration of pain, projectile vomiting, change in mental status, confusion, inability to tolerate liquid feeds, new, worsened or different symptoms not present on the initial emergency room evaluation. Dr. Tania Mcallister Is a local primary care doctor. Dr. Rohit Hanna Is a local legal instruments examiner. Dr. Carolyn Call Is a local cotton tipper. CT scan of the chest suggested pulmonary nodules, and possible early pneumonia in the left lung. Take the antibiotics as directed. Please follow-up with a cotton tipper or primary care doctor within the recommended timeframe. It is very important to follow-up on an outpatient basis to make sure that pulmonary nodules and findings do not represent early cancer, tumor, malignancy. Prescriptions: Albuterol Sulfate [Proair Respiclick] 90 mcg IH Q4HR PRN #2 aer.pow.ba PRN Reason: Wheezing DOXYCYCLINE Hyclate [Vibramycin CAP] 100 mg PO Q12HR 7 Days #14 capsule Referrals: MIRIAM HANNA MD [Staff Physician] - 3-5 Days DARLINE MCALLISTER MD [Staff Physician] - 3-5 Days HARRISON CALL MD [Staff Physician] - 3-5 Days
[2021-01-10] MEDS ORDERED: ACETAMINOPHEN 325 MG TAB PO ONE (11:32)
[2021-01-10] MEDS ORDERED: oxyCODONE /ACETAMINOPHEN 5-325MG TAB PO ONE (11:32)
[2021-01-10] MEDS ORDERED: SUCRALFATE 1 GM/10 ML ORAL LIQD PO ONE (11:32)
[2021-01-10] MEDS ORDERED: PANTOPRAZOLE 40 MG TAB PO ONE (11:33)
[2021-01-10 12:05] LABS: Hematocrit 39.9 % (30.3-42.9); Hemoglobin 13.3 gm/dl (10.1-14.3); Mean Corpuscular HGB Conc 33 % (30-34); Mean Corpuscular Volume 91 fl (79-97); Platelet Count 259 K/mm3 (140-440); Red Blood Count 4.37 M/mm3 (3.65-5.03); Red Cell Distribution Width 15.1 % (13.2-15.2)
--- NOTE | 2021-01-10 12:09 | XRay Report ---
CHEST 2 VIEWS 1145 INDICATION / CLINICAL INFORMATION: Chest Pain COMPARISON: 08/22/2020 FINDINGS: SUPPORT DEVICES: None. HEART / MEDIASTINUM: No significant abnormality. LUNGS / PLEURA: Diffuse increased interstitial markings are not significantly changed. No definite ar eas of consolidation are seen. Scarring is again seen in the left lateral base. No definite pleural e ffusion is seen. No pneumothorax. ADDITIONAL FINDINGS: No significant additional findings. IMPRESSION: No significant acute abnormality Signer Name: Jarad Khanna MD Signed: 01/10/2021 12:05 PM Workstation Name: [id number]
[2021-01-10 12:25] LABS: Blood Urea Nitrogen 17 mg/dL (7-17); Calcium 9.2 mg/dL (8.4-10.2); Hemolysis Index 68
[2021-01-10 12:31] LABS: BUN/Creatinine Ratio 24
[2021-01-10] MEDS ORDERED: SODIUM CHLORIDE 0.9% 250ML 250 ML IV ONE (12:54)
[2021-01-10] MEDS ORDERED: SODIUM CHLORIDE 0.9% 500 ML 500 ML IV ONE ×2 (13:41→15:15)
--- NOTE | 2021-01-10 15:51 | Cat Scan Report ---
CTA CHEST WITH CONTRAST INDICATION / CLINICAL INFORMATION: acute chest pain, copd + d dimer. TECHNIQUE: Axial CT images were obtained through the chest after injection of IV contrast. 3 plane WI P and/or 3D reconstructions were produced. All CT scans at this location are performed using CT dose reduction for ALARA by means of automated exposure control. COMPARISON: None available. FINDINGS: The pulmonary arteries are patent without filling defect or evidence for PTE. Heart and aorta appear normal. No pericardial effusion. Liver is enlarged with fatty infiltration. Large right renal cyst me asures 4.7 cm. Celiac and SMA appear normal. Emphysematous changes seen within the lungs. Mild lower lobe atelectasis left greater than right. The re is a prominent pulmonary nodule with mildly spiculated margins measuring 9 mm in the right lower l feliberto on coronal images there is density in the left lower lung could represent atelectasis or infiltra te. IMPRESSION: 1. No CT evidence for pulmonary embolism. 2. Density within the left upper lung/lingula could represent infiltrate/atelectasis. The pulmonary a rteries supplying this region appear patent. 2. 9 mm nodular density in the right lung. INCIDENTAL PULMONARY NODULE RECOMMENDATION RECOMMENDATION: Solid Nodule size >8 mm -- Single - Low Risk or High Risk Patient: Consider CT at 3 months, PET/CT, or tissue sampling Note These recommendations do not apply to lung cancer screening, patients with immunosuppression, o r patients with known primary cancer. Note Newly detected indeterminate nodule in persons 35 years of age or older. Persons under the age of 35 should not receive follow-up unless there is a known primary cancer. Note Perifissural Nodule is a fissure-attached/subpleural, homogeneous, solid nodule that has smooth margins and an oval, lentiform, or triangular shape. They represent about 20% of nodules detected in lung cancer screening, are invariably benign, and do not require follow-up. Nodules 10 mm or larger (or those with suspicious features) will continue to be managed based on the size criteria. Low Risk Patient = minimal or absent history of smoking and of other known risk factors. High Risk Patient = history of smoking or of other known risk factors. Nodule dimensions are average of long and short axes, rounded to the nearest millimeter. Based on 2017 Fleischner Society Guidelines found in Radiology 2017 284:228-243. https://doi.org/10.1148/radiol.9587932564 https://www.ncbi.nlm.nih.gov/pmc/articles/PUH8603075/ Signer Name: Kvng Vyas MD Signed: 01/10/2021 3:47 PM Workstation Name: [id number]
[2021-01-10 16:45] VITALS: BP 108/64
--- NOTE | 2021-01-11 14:30 | Electrocardiograph Report ---
[facility] Test Date: 2021-01-10 Test Time: 11:05:48 Pat Name: MEGHANA SEGOVIA Department: Room: Gender: F Alarm Signaler: JONI : 1955 Requested By: RADHA REAL Order Number: [id number] Reading MD: Debbie Aguilar Measurements Intervals [place] Rate: 81 P: 26 SD: 133 QRS: 44 QRSD: 112 T: 80 QT: 376 QTc: 437 Interpretive Statements Sinus rhythm Anterior infarct, old No previous ECG available for comparison Electronically Signed On 01-11-2021 14:29:39 EDT by Debbie Aguilar
--- NOTE | 2021-01-12 11:47 | Electrocardiograph Report ---
[facility] Test Date: 2021-01-10 Test Time: 13:04:23 Pat Name: MEGHANA SEGOVIA Department: Room: Gender: F Instructor Warper: JONI : 1955 Requested By: RADHA REAL Order Number: [id number] Reading MD: Debbie Aguilar Measurements Intervals [place] Rate: 75 P: 47 WI: 141 QRS: 32 QRSD: 111 T: 119 QT: 383 QTc: 427 Interpretive Statements Sinus rhythm Incomplete left bundle branch block Low voltage, precordial leads Compared to ECG 01/10/2021 11:05:48 No significant change Electronically Signed On 01-12-2021 11:46:59 EDT by Debbie Aguilar
== END 2021-01-10 16:44 | disposition home or self-care (01) ==
LOC: ED 10:32
DX: R07.89 Other chest pain (principal); J44.9 Chronic obstructive pulmonary disease, unspecified; R91.1 Solitary pulmonary nodule; I10 Essential (primary) hypertension; K21.9 Gastro-esophageal reflux disease without esophagitis; F32.9 Major depressive disorder, single episode, unspecified; F17.200 Nicotine dependence, unspecified, uncomplicated; G89.29 Other chronic pain; E78.00 Pure hypercholesterolemia, unspecified; Z90.710 Acquired absence of both cervix and uterus; Z88.0 Allergy status to penicillin; Z88.2 Allergy status to sulfonamides; Z79.899 Other long term (current) drug therapy
CPT/HCPCS: 36415; 71046; 71275; 80048; 82550; 83735; 84484; 85027; 85379; 93005; 99285; Q9967

== ENCOUNTER 2021-02-25 07:51 | Outpatient (CLI) | payer MEDICARE ==
--- NOTE | 2021-02-25 09:16 | Cat Scan Report ---
CT CHEST WITHOUT CONTRAST INDICATION / CLINICAL INFORMATION: pneumonia. TECHNIQUE: Axial CT images were obtained through the chest without contrast. All CT scans at this location are p erformed using CT dose reduction for ALARA by means of automated exposure control. COMPARISON: 01/10/2021 FINDINGS: Extensive emphysematous changes seen within bilateral lungs with chronic interstitial change identifi ed. Groundglass densities are seen diffusely within bilateral lungs. There is a nodular density has p reviously described the right lower lung. This nodule has increased in size since prior examination m easuring 1.2 cm, previously 9 mm. Minimal atelectasis in the lower lungs. Small mediastinal paratrach eal nodes are identified which appears similar. The liver is enlarged. Prominent right renal cyst is again noted. Nonobstructing left renal stone. Nodular density within the left adrenal gland likely re presents adenoma is Hounsfield units less than 10. Degenerative changes seen throughout spine IMPRESSION: 1. Pulmonary nodule within the right lower lung measures 1.2 cm and is increased in size since prior examination. The nodule is concerning given increase in size in less than 2 months for bronchogenic c arcinoma. Further workup with PET CT and evaluation for carcinoma recommended. 2. Diffuse emphysematous change and chronic interstitial change in bilateral lungs. 3. Hepatomegaly. Right renal cyst. Signer Name: Kvng Vyas MD Signed: 02/25/2021 9:12 AM Workstation Name: [id number]
== END 2021-02-25 07:52 | disposition home or self-care (01) ==
LOC: CT 07:51
PROVIDERS: ATTEND Specialist
DX: J43.9 Emphysema, unspecified (principal); J18.9 Pneumonia, unspecified organism; R16.1 Splenomegaly, not elsewhere classified; R91.1 Solitary pulmonary nodule; M47.814 Spondylosis without myelopathy or radiculopathy, thoracic region
CPT/HCPCS: 71250

== ENCOUNTER 2021-03-28 12:15 | Emergency (ER) | payer MEDICARE ==
--- NOTE | 2021-03-28 12:45 | Emergency Department Report ---
HPI - General Chief Complaint: Abdominal Pain Time Seen by Provider: 03/28/21 12:19 - HPI HPI: Room 23 Patient is a six 5-year-old female present with a chief complaint of abdominal pain and swelling. Patient states for the past 3 weeks she is gradual swelling of her abdomen and diffuse pain. Patient states for the same over time she is also has swelling in bilateral lower extremity as well as dyspnea on exertion. Patient admits to occasional chest pain but denies history of fever or cough. Patient states she has received both her Remedify vaccinations receiving the second dose September 2020. ED Past Medical Hx - Past Medical History Hx Hypertension: Yes Hx GERD: Yes Hx Kidney Stones: Yes Hx Psychiatric Treatment: Yes (depression) Hx COPD: Yes Additional medical history: Chronic back pain. High Cholesterol - Surgical History Additional Surgical History: Hysterectomy. SURGERY FOR KIDNEY STONES - Family History Family history: no significant - Social History Smoking Status: Current Every Day Smoker (1 pack per) Substance Use Type: None (Denies illicit drug) - Medications Home Medications: Home Medications Medication Instructions Recorded Confirmed Last Taken Type Lisinopril 2.5 mg PO DAILY 01/05/20 03/20/20 Unknown History AtorvaSTATin 20 mg PO DAILY #30 tablet 01/06/20 03/20/20 Unknown Rx Omeprazole 40 mg PO DAILY #30 01/06/20 03/20/20 Unknown Rx Docusate Sodium [Colace] 100 mg PO BID #30 capsule 03/20/20 Unknown Rx hydrOXYzine PAMOATE [Vistaril] 25 mg PO Q6HR PRN #12 capsule 03/20/20 Unknown Rx Prednisone [predniSONE 10 mg 10 mg PO .TAPER #1 tab.ds.pk 08/23/20 Unknown Rx (6-Day Pack, 21 Tabs)] Dicyclomine [Bentyl] 20 mg PO QID PRN #20 tablet 11/27/20 Unknown Rx Ondansetron [Zofran Odt] 4 mg PO Q8HR PRN #20 tab.rapdis 11/27/20 Unknown Rx Albuterol Sulfate [Proair 90 mcg IH Q4HR PRN #2 aer.pow.ba 01/10/21 Unknown Rx Respiclick] DOXYCYCLINE Hyclate [Vibramycin 100 mg PO Q12HR 7 Days #14 capsule 01/10/21 Unknown Rx CAP] Simethicone [Gas Relief] 125 mg PO QID PRN #20 tab.chew 03/28/21 Unknown Rx traMADoL [Ultram] 50 mg PO Q6HR PRN #10 tablet 03/28/21 Unknown Rx ED Review of Systems ROS: Stated complaint: SONNY Other details as noted in HPI Constitutional: denies: fever Eyes: denies: eye pain ENT: denies: throat pain Respiratory: denies: cough Cardiovascular: chest pain Endocrine: no symptoms reported Gastrointestinal: abdominal pain Genitourinary: denies: dysuria Musculoskeletal: denies: back pain Neurological: denies: headache Physical Exam - Physical Exam Physical Exam: GENERAL: The patient is well-developed well-nourished female lying on stretcher not appearing to be in acute distress. [] HEENT: Normocephalic. Atraumatic. Extraocular motions are intact. Patient has moist mucous membranes. NECK: Supple. Trachea midline CHEST/LUNGS: Clear to auscultation. There is no respiratory distress noted. HEART/CARDIOVASCULAR: Regular. There is no tachycardia. There is no gallop rub or murmur. ABDOMEN: Abdomen is soft, nontender to diffuse palpation. Patient has normal bowel sounds. The patient is obese. SKIN: There is no rash. There is trace pedal edema. There is no diaphoresis. NEURO: The patient is awake, alert, and oriented. The patient is cooperative. The patient has no focal neurologic deficits. The patient has normal speech. GCS 15 MUSCULOSKELETAL: There is no evidence of acute injury. ED Course - Consultations Consultation #1: 03/28/21 16:13 Pulmonology paged 03/28/21 17:[address] Irwin-has patient's information. The patient can follow-up as an outpatient ED Medical Decision Making - Lab Data Result diagrams: 03/28/21 13:00 03/28/21 13:00 Laboratory Tests 03/28/21 03/28/21 03/28/21 12:54 13:00 13:00 WBC 10.7 RBC 4.46 Hgb 13.5 Hct 41.2 MCV 92 MCH 30 MCHC 33 RDW 14.0 Plt Count 305 Lymph % (Auto) 25.5 Kend[place] % (Auto) 6.7 Eos % (Auto) 3.4 Baso % (Auto) 1.3 Lymph # (Auto) 2.7 Kendall # (Auto) 0.7 Eos # (Auto) 0.4 Baso # (Auto) 0.1 Seg Neutrophils % 63.1 Seg Neutrophils # 6.8 D-Dimer Sodium 142 Potassium 5.1 H Chloride 106.9 Carbon Dioxide 21 L Anion Gap 19 BUN 20 H Creatinine 1.0 Estimated GFR 55 BUN/Creatinine Ratio 20 Glucose 92 Calcium 10.2 Total Bilirubin 0.20 AST 27 ALT 47 Alkaline Phosphatase 97 Total Creatine Kinase CK-MB (CK-2) CK-MB (CK-2) Rel Index Troponin T NT-Pro-B Natriuret Pep Total Protein 7.5 Albumin 4.7 Albumin/Globulin Ratio 1.7 Urine Color Yellow Urine Turbidity Slightly-cloudy Urine pH 5.0 Ur Specific [place] 1.018 Urine Protein <15 mg/dl Urine Glucose (UA) Neg Urine Ketones Neg Urine Blood Mod Urine Nitrite Neg Urine Bilirubin Neg Urine Urobilinogen < 2.0 Ur Leukocyte Esterase Tr Urine WBC (Auto) 5.0 Urine RBC (Auto) 18.0 U Epithel Cells (Auto) 4.0 Urine Mucus Few 03/28/21 03/28/21 13:00 13:00 WBC RBC Hgb Hct MCV MCH MCHC RDW Plt Count Lymph % (Auto) Kend[place] % (Auto) Eos % (Auto) Baso % (Auto) Lymph # (Auto) Kend[place] # (Auto) Eos # (Auto) Baso # (Auto) Seg Neutrophils % Seg Neutrophils # D-Dimer 239.67 H Sodium Potassium Chloride Carbon Dioxide Anion Gap BUN Creatinine Estimated GFR BUN/Creatinine Ratio Glucose Calcium Total Bilirubin AST ALT Alkaline Phosphatase Total Creatine Kinase 85 CK-MB (CK-2) 1.3 CK-MB (CK-2) Rel Index 1.5 Troponin T < 0.010 NT-Pro-B Natriuret Pep 34.11 Total Protein Albumin Albumin/Globulin Ratio Urine Color Urine Turbidity Urine pH Ur Specific [place] Urine Protein Urine Glucose (UA) Urine Ketones Urine Blood Urine Nitrite Urine Bilirubin Urine Urobilinogen Ur Leukocyte Esterase Urine WBC (Auto) Urine RBC (Auto) U Epithel Cells (Auto) Urine Mucus - EKG Data -: EKG Interpreted by Me EKG shows normal: sinus rhythm Rate: normal - EKG Data When compared to previous EKG there are: previous EKG unavailable Interpretation: other (No ischemic changes seen) - Radiology Data Radiology results: report reviewed (CT abdomen pelvis, CT chest), image reviewed (CT abdomen pelvis, CT chest) [facility] [address] [place] [address] Cat Scan Report Signed Patient: MEGHANA SEGOVIA MR#: [id number] : 1955 Acct:[id number] Age/Sex: 65 / F ADM Date: 03/28/21 Loc: ED Attending Dr: Ordering Physician: ELIEZER ROBERTS MD Date of Service: 03/28/21 Procedure(s): CT abdomen pelvis w con Accession Number(s): [id number] cc: ELIEZER ROBERTS MD CT abdomen pelvis w con INDICATION / CLINICAL INFORMATION: Diffuse abdominal pain / swelling. TECHNIQUE: Axial CT imaging of abdomen and pelvis was obtained with IV contrast. Coronal and sagittal reformatted imaging obtained and reviewed. All CT scans at this location are performed using CT dose reduction for ALARA by means of automated exposure control. COMPARISON: Prior CT abdomen/pelvis 11/18, 04/03/2018 FINDINGS: CT abdomen demonstrates mild hepatomegaly with mild hepatic steatosis. The liver is otherwise normal. Spleen, pancreas, and gallbladder all appear grossly unremarkable. Bilateral simple renal cysts are noted. There is a 4.6 cm simple cyst arising from the upper pole of the right kidney and a 2 cm simple cyst arising from the anterior aspect of the left upper renal pole. Both kidneys are otherwise unremarkable. There is a small adrenal gland adenoma on the left measuring 1.5 cm stable in appearance. Abdominal aorta is unremarkable other than small amount of calcified plaque present. CT pelvis with contrast does not demonstrate mass, free fluid, or focal inflammatory change. The GI tract is grossly unremarkable. The appendix is either absent or not identified. Uterus is absent. Please see separately dictated CTA chest report for significant finding identified within the right lung. IMPRESSION: 1. No acute finding within the abdomen or pelvis. 2. Mild hepatomegaly with mild hepatic steatosis. 3. Bilateral simple renal cysts stable since 2018. 4. Stable small left adrenal gland adenoma. Signer Name: Darleen Andrew MD Signed: 03/28/2021 3:55 PM Workstation Name: [id number] Transcribed By: Dictated By: Darlene Andrew MD Electronically Authenticated By: Darleen Andrew MD Signed Date/Time: 03/28/21 1554 DD/ 1550 TD/TT: Print Cancel [facility] [address] [place] [address] Cat Scan Report Signed Patient: MEGHANA SEGOVIA MR#: [id number] : 1955 Acct:[id number] Age/Sex: 65 / F ADM Date: 03/28/21 Loc: ED Attending Dr: Ordering Physician: ELIEZER ROBERTS MD Date of Service: 03/28/21 Procedure(s): CT angio chest Accession Number(s): [id number] cc: ELIEZER ROBERTS MD CTA CHEST WITH IV CONTRAST INDICATION / CLINICAL INFORMATION: Shortness of breath, elevated D- dimer. TECHNIQUE: Axial CT images were obtained through the chest after injection of 100 mL Omnipaque 350 IV contrast. 3 plane MIP and/or 3D reconstructions were produced. All CT scans at this location are performed using CT dose reduction for ALARA by means of automated exposure control. COMPARISON: Prior CTA chest 01/10/2021 FINDINGS: PULMONARY ARTERIES: No pulmonary emboli. THORACIC AORTA: No significant abnormality. HEART: No significant abnormality. CORONARY ARTERIES: No significant calcification. PLEURA: No pleural effusion. No pneumothorax. LYMPH NODES: No significant adenopathy. LUNGS: Previously noted noncalcified pulmonary nodule in the right lower lobe on the prior CT exam of 01/10/2021 is again noted, measuring 1.3 cm on today's study. This mass has shown interval growth since the prior study and is concerning for malignancy. There is emphysema noted bilaterally. There is mild interstitial prominence bilaterally and diffusely more suggestive of interstitial edema. No pleural effusion, however. No focal area of consolidation is present. ADDITIONAL FINDINGS: None. UPPER ABDOMEN: No acute findings. SKELETAL STRUCTURES: No significant acute osseous abnormality. IMPRESSION: 1. No CT evidence for pulmonary embolism. 2. Mild diffuse bilateral interstitial prominence with appearance more suggestive of mild interstitial pulmonary edema. Please correlate clinically. 3. Continued enlargement of previously described pulmonary mass in the right lower lobe. On today's exam, this mass measures 1.3 cm and has an appearance very concerning for a bronchogenic carcinoma. 4. Prominent emphysema. Signer Name: Darleen Andrew MD Signed: 03/28/2021 3:50 PM Workstation Name: [id number] Transcribed By: Dictated By: Darleen Andrew MD Electronically Authenticated By: Darleen Andrew MD Signed Date/Time: 03/28/21 1550 DD/ 1544 TD/TT: Print Cancel - Differential Diagnosis Ascites, UTI, CHF, PE, GERD Critical care attestation.: If time is entered above; I have spent that time in minutes in the direct care of this critically ill patient, excluding procedure time. ED Disposition Clinical Impression: Pulmonary mass, Abdominal pain, Bloating Disposition: HOME / SELF CARE / HOMELESS Is pt being admited?: No Does the pt Need Aspirin: No Condition: Stable Instructions: Abdominal Pain (ED) Additional Instructions: Return to the emergency department should you develop worsening symptoms, inability to tolerate food or liquids, high fever or any other concerns Prescriptions: Simethicone [Gas Relief] 125 mg PO QID PRN #20 tab.chew PRN Reason: Gas Pain traMADoL [Ultram] 50 mg PO Q6HR PRN #10 tablet PRN Reason: Pain Referrals: PRIMARY CARE, [Primary Care Provider] - 3-5 Days ISAMAR SOFIA MD [Staff Physician] - [facility] (Dr. Sofia is your senior applications architect. Please follow-up with him for further evaluation) Time of Disposition: 17:55
--- NOTE | 2021-03-28 13:01 | XRay Report ---
CHEST 1 VIEW INDICATION: Occasional chest pain. COMPARISON: None. FINDINGS: Support devices: None. Heart: Normal. Lungs/Pleura: Mild diffuse interstitial opacities are noted. These may be chronic. No pleural effusio n or pneumothorax. IMPRESSION: 1. No acute findings. Mild diffuse interstitial opacities may be chronic. Signer Name: Skip Davey MD Signed: 03/28/2021 12:56 PM Workstation Name: [id number]
[2021-03-28 13:31] LABS: Basophils # (Auto) 0.1 K/mm3 (0.0-0.1); Basophils % (Auto) 1.3 % (0.0-1.8); Eosinophils # (Auto) 0.4 K/mm3 (0.0-0.4); Eosinophils % (Auto) 3.4 % (0.0-4.3); Hematocrit 41.2 % (30.3-42.9); Hemoglobin 13.5 gm/dl (10.1-14.3); Lymphocytes # (Auto) 2.7 K/mm3 (1.2-5.4); Lymphocytes % (Auto) 25.5 % (13.4-35.0); Mean Corpuscular HGB Conc 33 % (30-34); Mean Corpuscular Volume 92 fl (79-97); Monocytes # (Auto) 0.7 K/mm3 (0.0-0.8); Monocytes % (Auto) 6.7 % (0.0-7.3); Platelet Count 305 K/mm3 (140-440); Red Blood Count 4.46 M/mm3 (3.65-5.03)
[2021-03-28 13:54] LABS: Bilirubin,Urine NEG (Negative); Blood,Urine MOD (Negative); Color,Urine Yellow (Yellow); Mucus,Urine FEW /HPF; Protein,Urine <15 mg/dL mg/dL (Negative); Urobilinogen,Urine < 2.0 mg/dL (<2.0)
[2021-03-28 14:01] LABS: Creatine Kinase MB 1.3 ng/mL (0.0-4.0)
[2021-03-28 14:03] LABS: Albumin 4.7 g/dL (3.9-5); Calcium 10.2 mg/dL (8.4-10.2)
--- NOTE | 2021-03-28 15:54 | Cat Scan Report ---
CTA CHEST WITH IV CONTRAST INDICATION / CLINICAL INFORMATION: Shortness of breath, elevated D-dimer. TECHNIQUE: Axial CT images were obtained through the chest after injection of 100 mL Omnipaque 350 IV contrast. 3 plane MIP and/or 3D reconstructions were produced. All CT scans at this location are performed usin g CT dose reduction for ALARA by means of automated exposure control. COMPARISON: Prior CTA chest 01/10/2021 FINDINGS: PULMONARY ARTERIES: No pulmonary emboli. THORACIC AORTA: No significant abnormality. HEART: No significant abnormality. CORONARY ARTERIES: No significant calcification. PLEURA: No pleural effusion. No pneumothorax. LYMPH NODES: No significant adenopathy. LUNGS: Previously noted noncalcified pulmonary nodule in the right lower lobe on the prior CT exam of 01/10/2021 is again noted, measuring 1.3 cm on today's study. This mass has shown interval growth sin ce the prior study and is concerning for malignancy. There is emphysema noted bilaterally. There is m ild interstitial prominence bilaterally and diffusely more suggestive of interstitial edema. No pleur al effusion, however. No focal area of consolidation is present. ADDITIONAL FINDINGS: None. UPPER ABDOMEN: No acute findings. SKELETAL STRUCTURES: No significant acute osseous abnormality. IMPRESSION: 1. No CT evidence for pulmonary embolism. 2. Mild diffuse bilateral interstitial prominence with appearance more suggestive of mild interstitia l pulmonary edema. Please correlate clinically. 3. Continued enlargement of previously described pulmonary mass in the right lower lobe. On today's e xam, this mass measures 1.3 cm and has an appearance very concerning for a bronchogenic carcinoma. 4. Prominent emphysema. Signer Name: Darleen Andrew MD Signed: 03/28/2021 3:50 PM Workstation Name: [id number]
--- NOTE | 2021-03-28 16:00 | Cat Scan Report ---
CT abdomen pelvis w con INDICATION / CLINICAL INFORMATION: Diffuse abdominal pain / swelling. TECHNIQUE: Axial CT imaging of abdomen and pelvis was obtained with IV contrast. Coronal and sagittal reformatte d imaging obtained and reviewed. All CT scans at this location are performed using CT dose reduction for ALARA by means of automated exposure control. COMPARISON: Prior CT abdomen/pelvis 11/27/2020, 04/03/2018 FINDINGS: CT abdomen demonstrates mild hepatomegaly with mild hepatic steatosis. The liver is otherwise normal. Spleen, pancreas, and gallbladder all appear grossly unremarkable. Bilateral simple renal cysts are noted. There is a 4.6 cm simple cyst arising from the upper pole of the right kidney and a 2 cm simpl e cyst arising from the anterior aspect of the left upper renal pole. Both kidneys are otherwise unre markable. There is a small adrenal gland adenoma on the left measuring 1.5 cm stable in appearance. A bdominal aorta is unremarkable other than small amount of calcified plaque present. CT pelvis with contrast does not demonstrate mass, free fluid, or focal inflammatory change. The GI t ract is grossly unremarkable. The appendix is either absent or not identified. Uterus is absent. Please see separately dictated CTA chest report for significant finding identified within the right l feliberto. IMPRESSION: 1. No acute finding within the abdomen or pelvis. 2. Mild hepatomegaly with mild hepatic steatosis. 3. Bilateral simple renal cysts stable since 2018. 4. Stable small left adrenal gland adenoma. Signer Name: Darleen Andrew MD Signed: 03/28/2021 3:55 PM Workstation Name: [id number]
[2021-03-28 16:18] VITALS: BP 136/65
--- NOTE | 2021-03-30 10:59 | Electrocardiograph Report ---
[facility] Test Date: 2021-03-28 Test Time: 13:34:00 Pat Name: MEGHANA SEGOVIA Department: Room: Gender: F [employer]er Helper: STARLA : 1955 Requested By: ELIEZER ROBERTS Order Number: [id number] Reading MD: Murray Hanna Measurements Intervals [place] Rate: 77 P: 36 WI: 146 QRS: 88 QRSD: 112 T: 52 QT: 385 QTc: 435 Interpretive Statements Sinus rhythm non specific st-t Compared to ECG 01/10/2021 13:04:23 Electronically Signed On 03-30-2021 10:58:49 EDT by Murray Hanna
== END 2021-03-28 19:16 | disposition home or self-care (01) ==
LOC: ED 12:15
DX: R91.1 Solitary pulmonary nodule (principal); R10.9 Unspecified abdominal pain; R14.0 Abdominal distension (gaseous); I10 Essential (primary) hypertension; F17.200 Nicotine dependence, unspecified, uncomplicated; Z90.710 Acquired absence of both cervix and uterus
CPT/HCPCS: 36415; 71045; 71275; 74177; 80053; 81001; 82550; 82553; 83880; 84484; 85025; 85379; 93005; 99284; Q9967

== ENCOUNTER 2021-12-11 16:36 | Emergency (ER) | payer MEDICARE ==
[2021-12-11 16:42] VITALS: BP 128/72
[2021-12-11] MEDS ORDERED: ONDANSETRON 4 MG/2 ML INJ IV ONE ×2 (16:53→20:03)
[2021-12-11] MEDS ORDERED: HYDROmorphone 1 MG/1 ML INJ IV ONE ×2 (16:53→20:03)
[2021-12-11] MEDS ORDERED: KETOROLAC 30 MG/1 ML INJ IV ONE (16:58)
--- NOTE | 2021-12-11 17:31 | Emergency Department Report ---
ED Fall HPI - General Chief Complaint: Fall Stated Complaint: FALL Time Seen by Provider: 12/11/21 16:46 Source: EMS Mode of arrival: Stretcher Limitations: No Limitations - History of Present Illness Initial Comments: 66-year-old female with a past medical history of obesity, hypertension, COPD on home oxygen, diabetes, hypertension, chronic back pain, and depression presents to the hospital with complaints of pain after fall. I obtained history from EMS and patient. Apparently home health nurse was at the scene and patient fell off of her shower seat landing on her left side. Patient complains of left flank pain that is 10/10 intensity, worse with movement, palpation. Patient is mildly crying out in pain upon arrival. Patient also thinks that she has pneumonia because she has a cough and left sided chest pain. No head injury or LOC rep orted Patient apparently also has a history of lung cancer (informed after I told her about her CT result). She is currently undergoing treatment at [facility] and received 1 dose of radiation thus - Related Data Home Medications Medication Instructions Recorded Confirmed Last Taken Lisinopril 2.5 mg PO DAILY 01/05/20 06/25/21 Unknown Previous Rx's Medication Instructions Recorded Last Taken Type AtorvaSTATin 20 mg PO DAILY #30 tablet 01/06/20 Unknown Rx Omeprazole 40 mg PO DAILY #30 01/06/20 Unknown Rx Docusate Sodium [Colace CAP] 100 mg PO BID #30 capsule 03/20/20 Unknown Rx hydrOXYzine PAMOATE [Vistaril] 25 mg PO Q6HR PRN #12 capsule 03/20/20 Unknown Rx Prednisone [predniSONE 10 mg 10 mg PO .TAPER #1 tab.ds.pk 08/23/20 Unknown Rx (6-Day Pack, 21 Tabs)] Dicyclomine [Bentyl] 20 mg PO QID PRN #20 tablet 11/27/20 Unknown Rx Ondansetron [Zofran ODT TAB] 4 mg PO Q8HR PRN #20 tab.rapdis 11/27/20 Unknown Rx Albuterol Sulfate [Proair 90 mcg IH Q4HR PRN #2 aer.pow.ba 01/10/21 Unknown Rx Respiclick] Simethicone [Gas Relief] 125 mg PO QID PRN #20 tab.chew 03/28/21 Unknown Rx traMADoL [Ultram 50 MG tab] 50 mg PO Q6HR PRN #10 tablet 03/28/21 Unknown Rx Insulin Glargine [Lantus VIAL] 40 units SUB-Q QHS #10 ml 06/26/21 Unknown Rx Insulin NPH Human Isophane 0 unit SQ ACHS #1 vial 06/26/21 Unknown Rx [Novolin N] levoFLOXacin [Levaquin TAB] 750 mg PO Q24HR #5 tablet 06/26/21 Unknown Rx Azithromycin [Zithromax Z-GAB] 1 dose PO DAILY 5 Days tab 12/11/21 Unknown Rx HYDROcodone/APAP 5-325 [[place] 1 each PO Q6HR PRN #20 tablet 12/11/21 Unknown Rx 5/325] Ibuprofen [Motrin] 800 mg PO Q8HR PRN #30 tablet 12/11/21 Unknown Rx Promethazine [Phenergan] 25 mg PO Q6HR PRN #20 tab 12/11/21 Unknown Rx Allergies Allergy/AdvReac Type Severity Reaction Status Date / Time Penicillins Allergy Dizziness Verified 11/27/20 08:42 Sulfa (Sulfonamide Allergy Dizziness Verified 11/27/20 08:42 Antibiotics) ED Review of Systems ROS: Stated complaint: FALL Other details as noted in HPI Comment: All other systems reviewed and negative ED Past Medical Hx - Past Medical History Previous Medical History?: Yes Hx Hypertension: Yes Hx Diabetes: Yes Hx GERD: Yes Hx of Cancer: Yes (lung cancer) Hx Kidney Stones: Yes Hx Psychiatric Treatment: Yes (depression) Hx COPD: Yes Additional medical history: Chronic back pain. High Cholesterol - Surgical History Additional Surgical History: Hysterectomy. SURGERY FOR KIDNEY STONES - Social History Smoking Status: Former Smoker - Medications Home Medications: Home Medications Medication Instructions Recorded Confirmed Last Taken Type Lisinopril 2.5 mg PO DAILY 01/05/20 06/25/21 Unknown History AtorvaSTATin 20 mg PO DAILY #30 tablet 01/06/20 06/25/21 Unknown Rx Omeprazole 40 mg PO DAILY #30 01/06/20 06/25/21 Unknown Rx Docusate Sodium [Colace CAP] 100 mg PO BID #30 capsule 03/20/20 06/25/21 Unknown Rx hydrOXYzine PAMOATE [Vistaril] 25 mg PO Q6HR PRN #12 capsule 03/20/20 06/25/21 Unknown Rx Prednisone [predniSONE 10 mg 10 mg PO .TAPER #1 tab.ds.pk 08/23/20 06/25/21 Unknown Rx (6-Day Pack, 21 Tabs)] Dicyclomine [Bentyl] 20 mg PO QID PRN #20 tablet 11/27/20 06/25/21 Unknown Rx Ondansetron [Zofran ODT TAB] 4 mg PO Q8HR PRN #20 tab.rapdis 11/27/20 06/25/21 Unknown Rx Albuterol Sulfate [Proair 90 mcg IH Q4HR PRN #2 aer.pow.ba 01/10/21 06/25/21 Unknown Rx Respiclick] Simethicone [Gas Relief] 125 mg PO QID PRN #20 tab.chew 03/28/21 06/25/21 Unknown Rx traMADoL [Ultram 50 MG tab] 50 mg PO Q6HR PRN #10 tablet 03/28/21 06/25/21 Unknown Rx Insulin Glargine [Lantus VIAL] 40 units SUB-Q QHS #10 ml 06/26/21 Unknown Rx Insulin NPH Human Isophane 0 unit SQ ACHS #1 vial 06/26/21 Unknown Rx [Novolin N] levoFLOXacin [Levaquin TAB] 750 mg PO Q24HR #5 tablet 06/26/21 Unknown Rx Azithromycin [Zithromax Z-GAB] 1 dose PO DAILY 5 Days tab 12/11/21 Unknown Rx HYDROcodone/APAP 5-325 [[place] 1 each PO Q6HR PRN #20 tablet 12/11/21 Unknown Rx 5/325] Ibuprofen [Motrin] 800 mg PO Q8HR PRN #30 tablet 12/11/21 Unknown Rx Promethazine [Phenergan] 25 mg PO Q6HR PRN #20 tab 12/11/21 Unknown Rx ED Physical Exam - General Limitations: Physical Limitation - Other Other exam information: General: Moderate distress secondary to pain Head: Atraumatic Eyes: normal appearance ENT: Moist mucous membranes Neck: Normal appearance, no midline tenderness Chest: Clear to auscultation bilaterally CV: Regular rate and rhythm Abdomen: Soft, normal bowel sounds, nontender, nondistended, no rebound or guarding Back: Normal inspection, no midline lumbar tenderness. Left flank tenderness to palpation. No tenderness to pelvis or hip however, patient very difficult to fully examine due to pain Extremity: Normal inspection, full range of motion Neuro: Alert O x 3, no facial asymmetry, speech clear, no gross motor sensory deficit Psych: Appropriate behavior Skin: No rash ED Course Vital Signs 12/11/21 12/11/21 16:41 20:44 Temperature 98.1 F Pulse Rate 91 H Respiratory 16 20 Rate Blood Pressure 128/72 [Left] O2 Sat by Pulse 93 Oximetry ED Medical Decision Making - Lab Data Result diagrams: 12/11/21 17:55 12/11/21 17:55 Lab Results 12/11/21 12/11/21 Range/Units 17:55 17:55 WBC 11.8 H (4.5-11.0) K/mm3 RBC 4.04 (3.65-5.03) M/mm3 Hgb 12.2 (10.1-14.3) gm/dl Hct 37.6 (30.3-42.9) % MCV 93 (79-97) fl MCH 30 (28-32) pg MCHC 32 (30-34) % RDW 15.4 H (13.2-15.2) % Plt Count 311 (140-440) K/mm3 Lymph % (Auto) 25.3 (13.4-35.0) % [place] % (Auto) 7.0 (0.0-7.3) % Eos % (Auto) 2.9 (0.0-4.3) % Baso % (Auto) 1.0 (0.0-1.8) % Lymph # (Auto) 3.0 (1.2-5.4) K/mm3 [place] # (Auto) 0.8 (0.0-0.8) K/mm3 Eos # (Auto) 0.3 (0.0-0.4) K/mm3 Baso # (Auto) 0.1 (0.0-0.1) K/mm3 Seg Neutrophils % 63.8 (40.0-70.0) % Seg Neutrophils # 7.5 (1.8-7.7) K/mm3 Sodium 139 (137-145) mmol/L Potassium 5.1 H (3.6-5.0) mmol/L Chloride 104.7 (98-107) mmol/L Carbon Dioxide 23 (22-30) mmol/L Anion Gap 16 mmol/L BUN 18 H (7-17) mg/dL Creatinine 1.0 (0.6-1.2) mg/dL Estimated GFR 55 ml/min BUN/Creatinine Ratio 18 % Glucose 127 H (65-100) mg/dL Calcium 10.2 (8.4-10.2) mg/dL Total Bilirubin 0.40 (0.1-1.2) mg/dL AST 38 (5-40) units/L ALT 49 (7-56) units/L Alkaline Phosphatase 65 (35-129) units/L Troponin T < 0.010 (0.00-0.029) ng/mL NT-Pro-B Natriuret Pep 26.09 (0-900) pg/mL Total Protein 8.2 (6.3-8.2) g/dL Albumin 4.9 (3.9-5) g/dL Albumin/Globulin Ratio 1.5 % - EKG Data -: EKG Interpreted by Ar EKG shows normal: sinus rhythm, ST-T waves (no stemi) Rate: normal - EKG Data When compared to previous EKG there are: no significant change - Radiology Data Radiology results: report reviewed CHEST 1 VIEW 12/11/2021 4:39 PM INDICATION / CLINICAL INFORMATION: cough. COMPARISON: Chest CT dated 06/25/2021 FINDINGS: SUPPORT DEVICES: None. HEART / MEDIASTINUM: No significant abnormality. LUNGS / PLEURA: Mild hazy interstitial markings. No pneumothorax. Pulmonary nodule within the right lower lobe better appreciated on recent CT. ADDITIONAL FINDINGS: No significant additional findings. IMPRESSION: 1. Mild hazy interstitial markings which can be seen with mild pulmonary edema versus atypical infectious process. 2. There is a pulmonary nodule noted within the right lower lobe, better appreciated on chest CT. CT abdomen pelvis wo con INDICATION / CLINICAL INFORMATION: fall, left flank pain, left hip, lower back pain. TECHNIQUE: CT abdomen pelvis without contrast All CT scans at this location are performed using CT dose reduction for ALARA by means of automated exposure control. COMPARISON: 03/28/2021 FINDINGS: Abdomen and pelvis: The liver is enlarged and fatty. The spleen is unremarkable within the limits of noncontrast technique. The pancreas and adrenal glands are unremarkable. The left adrenal nodule is unchanged from 03/28/2021. Nonobstructive left- sided nephrolithiasis. There is a renal cyst within the upper pole the right kidney, unchanged. Moderate stool burden identified throughout the colon. Few sigmoid diverticula. No bowel obstruction. No free air or free fluid. Moderate atherosclerotic calcification identified throughout the abdominal aorta. Review of bone windows demonstrates no evidence of rib fracture. Review of the lower lungs demonstrates enlargement of the spiculated mass within the right lower lobe that now measures 1.7 cm in diameter previously measuring 9 mm. IMPRESSION: 1. Enlarging right lower lobe mass when compared to 03/28/2021 now measuring 1.7 cm in diameter previously measuring about 9 mm in diameter. This mass is highly concerning for lung cancer. 2. Fatty liver. Hepatomegaly. 3. No acute intra-abdominal findings appreciated within the limits of the noncontrast technique. - Medical Decision Making 66-year-old female presents to the hospital complaining of muscle skeletal pain status post fall. Imaging does not reveal any acute fracture. Pain is lateral to the spine and appears to be muscular in origin. Patient treated with Dilaudid and Zofran in the ED with improvement in pain. Patient did develop recurrent pain with nausea vomiting and therefore received additional dose of Dilaudid and Zofran Patient complained of cough with concern of pneumonia and chest x-ray shows interstitial disease. Patient will be treated with azithromycin. First dose provided IV in the ED PA also spoke to her sister via [employer] per patient's request. I explained her current ED work-up and diagnosis. I will provide a copy of the CAT scan to take to her her [facility] physicians to compare lung mass size to previous on record. Patient also has atypical chest pain with unchanged EKG and negative troponin. Sister states that patient had a recent cardiac work-up Patient will be discharged with medication for pain, nausea, and azithromycin Critical Care Time: No Critical care attestation.: If time is entered above; I have spent that time in minutes in the direct care of this critically ill patient, excluding procedure time. ED Disposition Clinical Impression: Lumbar strain, Fall, Lung cancer, Interstitial pneumonia, COPD (chronic ob structive pulmonary disease), Chronic respiratory failure Disposition: 01 HOME / SELF CARE / HOMELESS Is pt being admited?: No Does the pt Need Aspirin: No Condition: Stable Instructions: Lumbar Sprain, Lung Cancer, Community-Acquired Pneumonia, Adult, [id number], Chronic Obstructive Pulmonary Disease (ED), Bacterial Pneumonia (ED) Additional Instructions: Take the medication as prescribed. Follow-up with your doctor or doctor/clinic provided. Return if symptoms worsen as indicated by your discharge instructions. Take the copy of the CAT scan report provided to your [facility] cancer doctors for follow-up Prescriptions: Ibuprofen [Motrin] 800 mg PO Q8HR PRN #30 tablet PRN Reason: Pain , Severe (7-10) HYDROcodone/APAP 5-325 [[place] 5/325] 1 each PO Q6HR PRN #20 tablet PRN Reason: Pain Promethazine [Phenergan] 25 mg PO Q6HR PRN #20 tab PRN Reason: Nausea Azithromycin [Zithromax Z-GAB] 1 dose PO DAILY 5 Days tab Referrals: PRIMARY CARE, [Primary Care Provider] - 3-5 Days
--- NOTE | 2021-12-11 17:48 | XRay Report ---
CHEST 1 VIEW 12/11/2021 4:39 PM INDICATION / CLINICAL INFORMATION: cough. COMPARISON: Chest CT dated 06/25/2021 FINDINGS: SUPPORT DEVICES: None. HEART / MEDIASTINUM: No significant abnormality. LUNGS / PLEURA: Mild hazy interstitial markings. No pneumothorax. Pulmonary nodule within the right l ower lobe better appreciated on recent CT. ADDITIONAL FINDINGS: No significant additional findings. IMPRESSION: 1. Mild hazy interstitial markings which can be seen with mild pulmonary edema versus atypical infect ious process. 2. There is a pulmonary nodule noted within the right lower lobe, better appreciated on chest CT. Signer Name: Alfonso Iniguez DO Signed: 12/11/2021 5:43 PM Workstation Name: [email or web address]
[2021-12-11 18:31] LABS: Basophils # (Auto) 0.1 K/mm3 (0.0-0.1); Eosinophils # (Auto) 0.3 K/mm3 (0.0-0.4); Eosinophils % (Auto) 2.9 % (0.0-4.3); Hematocrit 37.6 % (30.3-42.9); Hemoglobin 12.2 gm/dl (10.1-14.3); Lymphocytes % (Auto) 25.3 % (13.4-35.0); Mean Corpuscular HGB Conc 32 % (30-34); Mean Corpuscular Volume 93 fl (79-97); Monocytes # (Auto) 0.8 K/mm3 (0.0-0.8); Platelet Count 311 K/mm3 (140-440); Red Blood Count 4.04 M/mm3 (3.65-5.03); Red Cell Distribution Width 15.4 % (13.2-15.2)
--- NOTE | 2021-12-11 18:35 | Cat Scan Report ---
CT abdomen pelvis wo con INDICATION / CLINICAL INFORMATION: fall, left flank pain, left hip, lower back pain. TECHNIQUE: CT abdomen pelvis without contrast All CT scans at this location are performed using CT dose reductio n for ALARA by means of automated exposure control. COMPARISON: 03/28/2021 FINDINGS: Abdomen and pelvis: The liver is enlarged and fatty. The spleen is unremarkable within the limits of noncontrast technique. The pancreas and adrenal gland s are unremarkable. The left adrenal nodule is unchanged from 03/28/2021. Nonobstructive left-sided ne phrolithiasis. There is a renal cyst within the upper pole the right kidney, unchanged. Moderate stoo l burden identified throughout the colon. Few sigmoid diverticula. No bowel obstruction. No free air or free fluid. Moderate atherosclerotic calcification identified throughout the abdominal aorta. Revi ew of bone windows demonstrates no evidence of rib fracture. Review of the lower lungs demonstrates enlargement of the spiculated mass within the right lower lobe that now measures 1.7 cm in diameter previously measuring 9 mm. IMPRESSION: 1. Enlarging right lower lobe mass when compared to 03/28/2021 now measuring 1.7 cm in diameter previo usly measuring about 9 mm in diameter. This mass is highly concerning for lung cancer. 2. Fatty liver. Hepatomegaly. 3. No acute intra-abdominal findings appreciated within the limits of the noncontrast technique. Signer Name: Tavo Molina MD Signed: 12/11/2021 6:30 PM Workstation Name: [email or web address]
[2021-12-11 19:45] LABS: Alanine Aminotransferase 49 units/L (7-56); Albumin 4.9 g/dL (3.9-5); BUN/Creatinine Ratio 18; Blood Urea Nitrogen 18 mg/dL (7-17); Calcium 10.2 mg/dL (8.4-10.2); Hemolysis Index 4
[2021-12-11] MEDS ORDERED: AZITHROMYCIN 250 MG TAB PO ONE (19:52)
[2021-12-11] MEDS ORDERED: AZITHROMYCIN/NS 500 MG/250 ML 500 MG/250 ML BAG IV ONE (20:03)
[2021-12-12] MEDS ORDERED: fentaNYL 100 MCG/2 ML INJ IV ONE (00:24)
--- NOTE | 2021-12-14 10:33 | Electrocardiograph Report ---
[facility] Test Date: 2021-12-11 Test Time: 18:44:23 Pat Name: MEGHANA SEGOVIA Department: Room: Gender: F Compliance Counsel: NICOLE : 1955 Requested By: JAVI SILVA Order Number: [id number] Reading MD: Debbie Aguilar Measurements Intervals [place] Rate: 76 P: 0 AK: 141 QRS: 23 QRSD: 100 T: 137 QT: 383 QTc: 430 Interpretive Statements Sinus rhythm Low voltage, precordial leads Possible old anterior myocardial infarction Compared to ECG 06/25/2021 12:20:05 No significant change Electronically Signed On 12-14-2021 10:33:01 EDT by Debbie Aguilar
== END 2021-12-12 00:03 | disposition home or self-care (01) ==
LOC: ED 16:36
DX: S39.012A Strain of muscle, fascia and tendon of lower back, initial encounter (principal); C34.90 Malignant neoplasm of unspecified part of unspecified bronchus or lung; J84.111 Idiopathic interstitial pneumonia, not otherwise specified; J44.0 Chronic obstructive pulmonary disease with (acute) lower respiratory infection; J96.10 Chronic respiratory failure, unspecified whether with hypoxia or hypercapnia; W19.XXXA Unspecified fall, initial encounter; Y93.89 Activity, other specified; Y92.89 Other specified places as the place of occurrence of the external cause; Y99.8 Other external cause status
CPT/HCPCS: 36415; 71045; 74176; 80053; 83880; 84484; 85025; 93005; 96365; 96375; 96376; 99285; J0456; J1170; J1885; J2405; J3010; 99284

== ENCOUNTER 2021-12-14 01:15 | Emergency (ER) | payer MEDICARE ==
[2021-12-14 01:49] VITALS: BP 128/98
[2021-12-14] MEDS ORDERED: HYDROcodone/ACETAMINOPHEN 5-325 MG TAB PO ONE (02:56)
--- NOTE | 2021-12-14 03:00 | Emergency Department Report ---
ED General Adult HPI - General Chief complaint: Pain General Stated complaint: BACK PAIN PUI?: No Time Seen by Provider: 12/14/21 02:25 Source: patient Mode of arrival: Stretcher Limitations: Physical Limitation - History of Present Illness Initial comments: This is a 66-year-old female with medical history of obesity hypertension COPD will use oxygen at home diabetes hypertension chronic back pain and also depression as well as currently undergoing treatment at [facility] for her lung cancer was seen several days ago by my colleague after sustaining a fall. According the patient she continues to have the pain predominantly at the left knee and also left hip region. This time patient is that she has been able walk but with significant pain. Patient is that she is out of her pain medication. Patient denies any other symptoms. - Related Data Home Medications Medication Instructions Recorded Confirmed Last Taken Lisinopril 2.5 mg PO DAILY 01/05/20 06/25/21 Unknown Previous Rx's Medication Instructions Recorded Last Taken Type AtorvaSTATin 20 mg PO DAILY #30 tablet 01/06/20 Unknown Rx Omeprazole 40 mg PO DAILY #30 01/06/20 Unknown Rx Docusate Sodium [Colace CAP] 100 mg PO BID #30 capsule 03/20/20 Unknown Rx hydrOXYzine PAMOATE [Vistaril] 25 mg PO Q6HR PRN #12 capsule 03/20/20 Unknown Rx Prednisone [predniSONE 10 mg 10 mg PO .TAPER #1 tab.ds.pk 08/23/20 Unknown Rx (6-Day Pack, 21 Tabs)] Dicyclomine [Bentyl] 20 mg PO QID PRN #20 tablet 11/27/20 Unknown Rx Ondansetron [Zofran ODT TAB] 4 mg PO Q8HR PRN #20 tab.rapdis 11/27/20 Unknown Rx Albuterol Sulfate [Proair 90 mcg IH Q4HR PRN #2 aer.pow.ba 01/10/21 Unknown Rx Respiclick] Simethicone [Gas Relief] 125 mg PO QID PRN #20 tab.chew 03/28/21 Unknown Rx traMADoL [Ultram 50 MG tab] 50 mg PO Q6HR PRN #10 tablet 03/28/21 Unknown Rx Insulin Glargine [Lantus VIAL] 40 units SUB-Q QHS #10 ml 06/26/21 Unknown Rx Insulin NPH Human Isophane 0 unit SQ ACHS #1 vial 06/26/21 Unknown Rx [Novolin N] levoFLOXacin [Levaquin TAB] 750 mg PO Q24HR #5 tablet 06/26/21 Unknown Rx Azithromycin [Zithromax Z-GAB] 1 dose PO DAILY 5 Days tab 12/11/21 Unknown Rx HYDROcodone/APAP 5-325 [[place] 1 each PO Q6HR PRN #20 tablet 12/11/21 Unknown Rx 5/325] Ibuprofen [Motrin] 800 mg PO Q8HR PRN #30 tablet 12/11/21 Unknown Rx Promethazine [Phenergan] 25 mg PO Q6HR PRN #20 tab 12/11/21 Unknown Rx HYDROcodone/APAP 5-325 [[place] 1 each PO Q4HR PRN 2 Days #6 tablet 12/14/21 Unknown Rx 5/325] Allergies Allergy/AdvReac Type Severity Reaction Status Date / Time Penicillins Allergy Dizziness Verified 11/27/20 08:42 Sulfa (Sulfonamide Allergy Dizziness Verified 11/27/20 08:42 Antibiotics) ED Review of Systems ROS: Stated complaint: BACK PAIN Other details as noted in HPI Comment: All other systems reviewed and negative Constitutional: no symptoms reported Eyes: as per HPI ENT: as per HPI Respiratory: no symptoms reported Cardiovascular: as per HPI Endocrine: no symptoms reported Gastrointestinal: as per HPI Musculoskeletal: other (Left hip and left knee pain.) Skin: as per HPI Neurological: as per HPI Psychiatric: as per HPI Hematological/Lymphatic: as per HPI ED Past Medical Hx - Past Medical History Previous Medical History?: Yes Hx Hypertension: Yes Hx Diabetes: Yes Hx GERD: Yes Hx of Cancer: Yes (Lung) Hx Kidney Stones: Yes Hx Psychiatric Treatment: Yes (depression) Hx COPD: Yes Additional medical history: Chronic back pain. High Cholesterol - Surgical History Past Surgical History?: Yes Additional Surgical History: Hysterectomy. SURGERY FOR KIDNEY STONES - Social History Smoking Status: Never Smoker Substance Use Type: None - Medications Home Medications: Home Medications Medication Instructions Recorded Confirmed Last Taken Type Lisinopril 2.5 mg PO DAILY 01/05/20 06/25/21 Unknown History AtorvaSTATin 20 mg PO DAILY #30 tablet 01/06/20 06/25/21 Unknown Rx Omeprazole 40 mg PO DAILY #30 01/06/20 06/25/21 Unknown Rx Docusate Sodium [Colace CAP] 100 mg PO BID #30 capsule 03/20/20 06/25/21 Unknown Rx hydrOXYzine PAMOATE [Vistaril] 25 mg PO Q6HR PRN #12 capsule 03/20/20 06/25/21 Unknown Rx Prednisone [predniSONE 10 mg 10 mg PO .TAPER #1 tab.ds.pk 08/23/20 06/25/21 Unknown Rx (6-Day Pack, 21 Tabs)] Dicyclomine [Bentyl] 20 mg PO QID PRN #20 tablet 11/27/20 06/25/21 Unknown Rx Ondansetron [Zofran ODT TAB] 4 mg PO Q8HR PRN #20 tab.rapdis 11/27/20 06/25/21 Unknown Rx Albuterol Sulfate [Proair 90 mcg IH Q4HR PRN #2 aer.pow.ba 01/10/21 06/25/21 Unknown Rx Respiclick] Simethicone [Gas Relief] 125 mg PO QID PRN #20 tab.chew 03/28/21 06/25/21 Unknown Rx traMADoL [Ultram 50 MG tab] 50 mg PO Q6HR PRN #10 tablet 03/28/21 06/25/21 Unknown Rx Insulin Glargine [Lantus VIAL] 40 units SUB-Q QHS #10 ml 06/26/21 Unknown Rx Insulin NPH Human Isophane 0 unit SQ ACHS #1 vial 06/26/21 Unknown Rx [Novolin N] levoFLOXacin [Levaquin TAB] 750 mg PO Q24HR #5 tablet 06/26/21 Unknown Rx Azithromycin [Zithromax Z-GAB] 1 dose PO DAILY 5 Days tab 12/11/21 Unknown Rx HYDROcodone/APAP 5-325 [[place] 1 each PO Q6HR PRN #20 tablet 12/11/21 Unknown Rx 5/325] Ibuprofen [Motrin] 800 mg PO Q8HR PRN #30 tablet 12/11/21 Unknown Rx Promethazine [Phenergan] 25 mg PO Q6HR PRN #20 tab 12/11/21 Unknown Rx HYDROcodone/APAP 5-325 [[place] 1 each PO Q4HR PRN 2 Days #6 tablet 12/14/21 Unknown Rx 5/325] ED Physical Exam - General Limitations: Physical Limitation General appearance: alert, obese - Head Head exam: Present: atraumatic, normocephalic, normal inspection - Eye Eye exam: Present: normal appearance, PERRL, EOMI Pupils: Present: normal accommodation - ENT ENT exam: Present: normal exam, mucous membranes moist - Neck Neck exam: Present: normal inspection, full ROM - Respiratory Respiratory exam: Present: normal lung sounds bilaterally - Cardiovascular Cardiovascular Exam: Present: regular rate, normal rhythm, normal heart sounds - GI/Abdominal GI/Abdominal exam: Present: soft - Extremities Exam Extremities exam: Present: normal inspection, full ROM, tenderness (Left hip and left knee.), normal capillary refill - Back Exam Back exam: Present: normal inspection, full ROM - Neurological Exam Neurological exam: Present: alert, altered, oriented X3 - Psychiatric Psychiatric exam: Present: normal affect, normal mood - Skin Skin exam: Present: normal color ED Course Vital Signs 12/14/21 01:16 Temperature 98 F Pulse Rate 80 Respiratory 18 Rate Blood Pressure 128/98 O2 Sat by Pulse 100 Oximetry ED Medical Decision Making - Medical Decision Making Images at the site of where the patient's depends are are unremarkable; therefore likely contusion due to the fall several days ago. Critical care attestation.: If time is entered above; I have spent that time in minutes in the direct care of this critically ill patient, excluding procedure time. ED Disposition Clinical Impression: Knee contusion, Contusion, hip Disposition: HOME / SELF CARE / HOMELESS Is pt being admited?: No Does the pt Need Aspirin: No Condition: Stable Prescriptions: HYDROcodone/APAP 5-325 [[place] 5/325] 1 each PO Q4HR PRN 2 Days #6 tablet PRN Reason: Pain Time of Disposition: 03:53
--- NOTE | 2021-12-14 03:38 | XRay Report ---
LEFT KNEE 2 VIEW(S) INDICATION / CLINICAL INFORMATION: S/P FALL LT KNEE PAIN COMPARISON: None available. FINDINGS: BONES / JOINT(S): No acute fracture or subluxation. Mild tricompartment arthrosis. SOFT TISSUES: No significant abnormality. ADDITIONAL FINDINGS: None. Signer Name: Alfonso Iniguez DO Signed: 12/14/2021 3:34 AM Workstation Name: [email or web address]
--- NOTE | 2021-12-14 03:39 | XRay Report ---
LEFT HIP 3 VIEW(S) INDICATION / CLINICAL INFORMATION: S/P FALL LT HIP PAIN COMPARISON: None available. FINDINGS: BONES / JOINT(S): No acute fracture or subluxation. Mild DJD of the bilateral hips. SOFT TISSUES: No significant abnormality. ADDITIONAL FINDINGS: None. Signer Name: Alfonso Iniguez DO Signed: 12/14/2021 3:35 AM Workstation Name: [email or web address]
[2021-12-14] MEDS ORDERED: KETOROLAC 30 MG/1 ML INJ IM ONE (06:29)
== END 2021-12-14 07:59 | disposition home or self-care (01) ==
LOC: ED 01:15
DX: S80.02XA Contusion of left knee, initial encounter (principal); S70.02XA Contusion of left hip, initial encounter; I10 Essential (primary) hypertension; E11.9 Type 2 diabetes mellitus without complications; K21.9 Gastro-esophageal reflux disease without esophagitis; Z87.442 Personal history of urinary calculi; Z85.9 Personal history of malignant neoplasm, unspecified; F32.9 Major depressive disorder, single episode, unspecified; J44.9 Chronic obstructive pulmonary disease, unspecified; E78.00 Pure hypercholesterolemia, unspecified; G89.29 Other chronic pain; M54.9 Dorsalgia, unspecified; Z90.710 Acquired absence of both cervix and uterus; Z98.890 Other specified postprocedural states; Z88.0 Allergy status to penicillin; Z88.2 Allergy status to sulfonamides; X58.XXXA Exposure to other specified factors, initial encounter; Y93.89 Activity, other specified; Y92.89 Other specified places as the place of occurrence of the external cause; Y99.8 Other external cause status
CPT/HCPCS: 73502; 73560; 99283; J1885

== ENCOUNTER 2021-12-26 18:50 | Emergency (ER) | payer MEDICARE ==
[2021-12-26] MEDS ORDERED: ACETAMINOPHEN 325 MG TAB PO ONE (19:23)
[2021-12-26] MEDS ORDERED: ALBUTEROL 2.5 MG/3 ML NEBU IH ONE (19:23)
--- NOTE | 2021-12-26 19:26 | Event Note ---
Date: 12/26/21 The patient was evaluated in the emergency department for symptoms described in the history of present illness. He/she was evaluated in the context of the global COVID-19 pandemic, which necessitated consideration that the patient might be at risk for infection with the virus that causes COVID-19. Institutional protocols and algorithms that pertain to the evaluation of patients at risk for COVID-19 are in a state of rapid change based on information released by regulatory bodies including the CDC and federal and state organizations. These policies and algorithms were followed during the patient's care in the emergency department. Please note that these policies, procedures and recommendations changed on a rapid basis. EMS documentation not available at time of chart dictation Verbal report received from emergency medical services Patient is a 66-year-old female with a history of deconditioning, debility, COPD, chronic pain, possible diabetes, lung cancer, brought to the hospital by EMS with a complaint of cough, body aches, shortness of breath, left hip pain after mechanical trip and fall 3 weeks ago, and generalized malaise. Patient saturating 93%. Started on oxygen by EMS. Ambulatory in the field with a walker as per EMS. Physical exam remarkable for diminished breath sounds, and left-sided hip pain. Patient is awake and alert, moving 4 extremities, and protecting her airway. Obtain appropriate laboratory studies, EKG, x-ray of the chest, x-ray of the pelvis, start albuterol, start Tylenol for pain, detailed history and physical to be performed by oncoming provider.
[2021-12-26 20:25] LABS: Hematocrit 37.1 % (30.3-42.9); Hemoglobin 11.9 gm/dl (10.1-14.3); Mean Corpuscular HGB Conc 32 % (30-34); Mean Corpuscular Volume 94 fl (79-97); Platelet Count 270 K/mm3 (140-440); Red Blood Count 3.97 M/mm3 (3.65-5.03); Red Cell Distribution Width 15.4 % (13.2-15.2)
[2021-12-26 20:36] LABS: INR 0.95 (0.87-1.13)
[2021-12-26 20:40] LABS: Albumin 4.5 g/dL (3.9-5); Calcium 9.6 mg/dL (8.4-10.2)
--- NOTE | 2021-12-26 21:11 | XRay Report ---
PELVIS 2 VIEWS INDICATION / CLINICAL INFORMATION: fall and left leg pain COMPARISON: CT abdomen and pelvis without contrast from 12/11/2021. FINDINGS: BONES and JOINT(S): No acute fracture or subluxation. Similar bilateral mild hip osteoarthritis. SOFT TISSUES: No significant abnormality. ADDITIONAL FINDINGS: None. IMPRESSION: 1. No acute findings. No significant interval changes. Signer Name: Regulo Block MD Signed: 12/26/2021 9:07 PM Workstation Name: [id number]
--- NOTE | 2021-12-26 21:13 | XRay Report ---
CHEST 1 VIEW 12/26/2021 8:03 PM INDICATION / CLINICAL INFORMATION: Dyspnea. History of COPD and lung cancer.. COMPARISON: One view of the chest from 12/11/2021. FINDINGS: SUPPORT DEVICES: None. HEART / MEDIASTINUM: Stable. LUNGS / PLEURA: There are similar bilateral pulmonary opacities with bibasilar predominance. No new s ignificant pulmonary abnormality. No significant pleural effusion or pneumothorax. ADDITIONAL FINDINGS: No significant additional findings. IMPRESSION: 1. No acute abnormality of the chest. No significant interval changes. Signer Name: Regulo Block MD Signed: 12/26/2021 9:09 PM Workstation Name: [id number]
--- NOTE | 2021-12-26 22:41 | Emergency Department Report ---
ED General Adult HPI - General Chief complaint: Pain General Stated complaint: SHORT OF BREATH/BODY PAIN Time Seen by Provider: 12/26/21 21:23 Source: patient, EMS Mode of arrival: Stretcher Limitations: Other - History of Present Illness Initial comments: Patient is a 66-year-old female with a history of deconditioning, debility, COPD, chronic pain, possible diabetes, lung cancer, brought to the hospital by EMS with a complaint of cough, body aches, shortness of breath, left hip pain after mechanical trip and fall 3 weeks ago, and generalized malaise as per initial assessment by ED provider. When I questioned patient she complains of mid back pain since fall 3 weeks ago and states that yesterday she developed nausea, vomiting, and diarrhea. Patient states she is currently waiting referral to a chest painting leader. She states she is having trouble ambulating but was noted to ambulate in the field with a walker as per EMS. She is O2 dependent and has home oxygen. She has had several visits recently for musculoskeletal pain related to fall 3 weeks ago Severity scale (0 -10): 3 - Related Data Home Medications Medication Instructions Recorded Confirmed Last Taken Lisinopril 2.5 mg PO DAILY 01/05/20 06/25/21 Unknown Previous Rx's Medication Instructions Recorded Last Taken Type AtorvaSTATin 20 mg PO DAILY #30 tablet 01/06/20 Unknown Rx Omeprazole 40 mg PO DAILY #30 01/06/20 Unknown Rx Docusate Sodium [Colace CAP] 100 mg PO BID #30 capsule 03/20/20 Unknown Rx hydrOXYzine PAMOATE [Vistaril] 25 mg PO Q6HR PRN #12 capsule 03/20/20 Unknown Rx Prednisone [predniSONE 10 mg 10 mg PO .TAPER #1 tab.ds.pk 08/23/20 Unknown Rx (6-Day Pack, 21 Tabs)] Dicyclomine [Bentyl] 20 mg PO QID PRN #20 tablet 11/27/20 Unknown Rx Ondansetron [Zofran ODT TAB] 4 mg PO Q8HR PRN #20 tab.rapdis 11/27/20 Unknown Rx Albuterol Sulfate [Proair 90 mcg IH Q4HR PRN #2 aer.pow.ba 01/10/21 Unknown Rx Respiclick] Simethicone [Gas Relief] 125 mg PO QID PRN #20 tab.chew 03/28/21 Unknown Rx traMADoL [Ultram 50 MG tab] 50 mg PO Q6HR PRN #10 tablet 03/28/21 Unknown Rx Insulin Glargine [Lantus VIAL] 40 units SUB-Q QHS #10 ml 06/26/21 Unknown Rx Insulin NPH Human Isophane 0 unit SQ ACHS #1 vial 06/26/21 Unknown Rx [Novolin N] levoFLOXacin [Levaquin TAB] 750 mg PO Q24HR #5 tablet 06/26/21 Unknown Rx Azithromycin [Zithromax Z-GAB] 1 dose PO DAILY 5 Days tab 12/11/21 Unknown Rx Ibuprofen [Motrin] 800 mg PO Q8HR PRN #30 tablet 12/11/21 Unknown Rx Promethazine [Phenergan] 25 mg PO Q6HR PRN #20 tab 12/11/21 Unknown Rx HYDROcodone/APAP 5-325 [[place] 1 each PO Q4HR PRN 2 Days #6 tablet 12/14/21 Unknown Rx 5/325] HYDROcodone/APAP 5-325 [[place] 1 each PO Q6HR PRN #10 tablet 12/27/21 Unknown Rx 5-325 mg TAB] Allergies Allergy/AdvReac Type Severity Reaction Status Date / Time Penicillins Allergy Dizziness Verified 11/27/20 08:42 Sulfa (Sulfonamide Allergy Dizziness Verified 11/27/20 08:42 Antibiotics) ED Review of Systems ROS: Stated complaint: SHORT OF BREATH/BODY PAIN Other details as noted in HPI ED Past Medical Hx - Past Medical History Previous Medical History?: Yes Hx Hypertension: Yes Hx Diabetes: Yes Hx GERD: Yes Hx Kidney Stones: Yes Hx Psychiatric Treatment: Yes (depression) Hx COPD: Yes Additional medical history: Chronic back pain. High Cholesterol - Surgical History Past Surgical History?: Yes Additional Surgical History: Hysterectomy. SURGERY FOR KIDNEY STONES - Social History Smoking Status: Never Smoker Substance Use Type: Alcohol - Medications Home Medications: Home Medications Medication Instructions Recorded Confirmed Last Taken Type Lisinopril 2.5 mg PO DAILY 01/05/20 06/25/21 Unknown History AtorvaSTATin 20 mg PO DAILY #30 tablet 01/06/20 06/25/21 Unknown Rx Omeprazole 40 mg PO DAILY #30 01/06/20 06/25/21 Unknown Rx Docusate Sodium [Colace CAP] 100 mg PO BID #30 capsule 03/20/20 06/25/21 Unknown Rx hydrOXYzine PAMOATE [Vistaril] 25 mg PO Q6HR PRN #12 capsule 03/20/20 06/25/21 Unknown Rx Prednisone [predniSONE 10 mg 10 mg PO .TAPER #1 tab.ds.pk 08/23/20 06/25/21 Unknown Rx (6-Day Pack, 21 Tabs)] Dicyclomine [Bentyl] 20 mg PO QID PRN #20 tablet 11/27/20 06/25/21 Unknown Rx Ondansetron [Zofran ODT TAB] 4 mg PO Q8HR PRN #20 tab.rapdis 11/27/20 06/25/21 Unknown Rx Albuterol Sulfate [Proair 90 mcg IH Q4HR PRN #2 aer.pow.ba 01/10/21 06/25/21 Unknown Rx Respiclick] Simethicone [Gas Relief] 125 mg PO QID PRN #20 tab.chew 03/28/21 06/25/21 Unknown Rx traMADoL [Ultram 50 MG tab] 50 mg PO Q6HR PRN #10 tablet 03/28/21 06/25/21 Unknown Rx Insulin Glargine [Lantus VIAL] 40 units SUB-Q QHS #10 ml 06/26/21 Unknown Rx Insulin NPH Human Isophane 0 unit SQ ACHS #1 vial 06/26/21 Unknown Rx [Novolin N] levoFLOXacin [Levaquin TAB] 750 mg PO Q24HR #5 tablet 06/26/21 Unknown Rx Azithromycin [Zithromax Z-GAB] 1 dose PO DAILY 5 Days tab 12/11/21 Unknown Rx Ibuprofen [Motrin] 800 mg PO Q8HR PRN #30 tablet 12/11/21 Unknown Rx Promethazine [Phenergan] 25 mg PO Q6HR PRN #20 tab 12/11/21 Unknown Rx HYDROcodone/APAP 5-325 [[place] 1 each PO Q4HR PRN 2 Days #6 tablet 12/14/21 Unknown Rx 5/325] HYDROcodone/APAP 5-325 [[place] 1 each PO Q6HR PRN #10 tablet 12/27/21 Unknown Rx 5-325 mg TAB] ED Physical Exam - General Limitations: Other - Other Other exam information: General: No acute distress Head: Atraumatic Eyes: normal appearance ENT: Moist mucous membranes Neck: Normal appearance, no midline tenderness Chest: Clear to auscultation bilaterally, just completed a DuoNeb treatment CV: Regular rate and rhythm Abdomen: Soft, normal bowel sounds, nontender, nondistended, no rebound or guarding Back: Bilateral paraspinal lumbar muscle tenderness Extremity: Normal inspection, full range of motion, no calf tenderness or edema Neuro: Alert O x 3, no facial asymmetry, speech clear, no gross motor sensory deficit Psych: Appropriate behavior Skin: No rash ED Course Vital Signs 12/26/21 12/26/21 12/26/21 19:56 20:58 22:03 Temperature 98.2 F 98.9 F Pulse Rate 108 H 104 H Pulse Rate [ 100 H Bilateral Throughout] Respiratory 18 Rate Respiratory 22 Rate [Bilateral Throughout] Blood Pressure 101/76 Blood Pressure 96/56 [Left] O2 Sat by Pulse 97 Oximetry ED Medical Decision Making - Lab Data Result diagrams: 12/26/21 20:06 12/26/21 20:06 - Radiology Data Radiology results: report reviewed CHEST 1 VIEW 12/26/2021 8:03 PM INDICATION / CLINICAL INFORMATION: Dyspnea. History of COPD and lung cancer.. COMPARISON: One view of the chest from 12/11/2021. FINDINGS: SUPPORT DEVICES: None. HEART / MEDIASTINUM: Stable. LUNGS / PLEURA: There are similar bilateral pulmonary opacities with bibasilar predominance. No new significant pulmonary abnormality. No significant pleural effusion or pneumothorax. ADDITIONAL FINDINGS: No significant additional findings. IMPRESSION: 1. No acute abnormality of the chest. No significant interval changes. PELVIS 2 VIEWS INDICATION / CLINICAL INFORMATION: fall and left leg pain COMPARISON: CT abdomen and pelvis without contrast from 12/11/2021. FINDINGS: BONES and JOINT(S): No acute fracture or subluxation. Similar bilateral mild h ip osteoarthritis. SOFT TISSUES: No significant abnormality. ADDITIONAL FINDINGS: None. IMPRESSION: 1. No acute findings. No significant interval changes. - Medical Decision Making Patient has a history of chronic interstitial lung disease/COPD and chest x-ray reflects stable findings. Patient reports nausea, vomiting, and diarrhea. Abdomen is nontender. Labs show mild leukocytosis and AST elevation without electrolyte or renal disturbance. Patient once again complaining of continued musculoskeletal pain since fall 3 weeks ago and states she is awaiting referral to a chest painting leader. Pelvic x-ray today remains unremarkable. Patient was evaluated after fall with CT abdomen and pelvis which did not identify any acute abnormality with multiple subsequent x-rays upon repeat visits Critical care attestation.: If time is entered above; I have spent that time in minutes in the direct care of this critically ill patient, excluding procedure time. ED Disposition Clinical Impression: Chronic pain, Chronic obstructive pulmonary disease (COPD), Chronic respiratory failure Disposition: HOME / SELF CARE / HOMELESS Is pt being admited?: No Condition: Stable Instructions: Chronic Obstructive Pulmonary Disease (ED), Chronic Pain, Adult, Chronic Obstructive Pulmonary Disease Exacerbation, [id number] Additional Instructions: Take the medication as prescribed. Follow-up with your doctor or doctor/clinic provided. Return if symptoms worsen as indicated by your discharge instructions. Prescriptions: HYDROcodone/APAP 5-325 [[place] 5-325 mg TAB] 1 each PO Q6HR PRN #10 tablet PRN Reason: Pain Referrals: DARLINE HARE MD [Primary Care Provider] - 3-5 Days Time of Disposition: 01:28
[2021-12-27] MEDS ORDERED: oxyCODONE /ACETAMINOPHEN 5-325MG TAB PO ONE (00:04)
[2021-12-27 00:08] LABS: Basophils % (Manual) 0 % (0.0-1.8); Total Cells Counted 100
[2021-12-27 00:09] LABS: Anisocytosis 1+; Platelet Estimate Consistent w Auto
[2021-12-27 01:45] VITALS: BP 144/80
--- NOTE | 2021-12-27 19:53 | Electrocardiograph Report ---
[facility] Test Date: 2021-12-26 Test Time: 20:08:12 Pat Name: MEGHANA SEGOVIA Department: Room: Gender: F [employer] Professor: ARIELLA : 1955 Requested By: RADHA REAL Order Number: [id number] Reading MD: Debbie Aguilar Measurements Intervals [place] Rate: 103 P: -4 DC: 119 QRS: 28 QRSD: 112 T: 113 QT: 326 QTc: 427 Interpretive Statements Sinus tachycardia Anterior infarct, old Nonspecific T abnormalities, lateral leads Compared to ECG 12/11/2021 18:44:23 No significant change Electronically Signed On 12-27-2021 19:53:26 EDT by Debbie Aguilar
== END 2021-12-27 01:45 | disposition home or self-care (01) ==
LOC: ED 18:50
DX: G89.29 Other chronic pain (principal); J96.10 Chronic respiratory failure, unspecified whether with hypoxia or hypercapnia; J44.1 Chronic obstructive pulmonary disease with (acute) exacerbation; I10 Essential (primary) hypertension; E11.9 Type 2 diabetes mellitus without complications; K21.9 Gastro-esophageal reflux disease without esophagitis; N20.0 Calculus of kidney; F32.A Depression, unspecified; Z88.0 Allergy status to penicillin; Z88.1 Allergy status to other antibiotic agents; Z79.899 Other long term (current) drug therapy
CPT/HCPCS: 36415; 71045; 72170; 80053; 82550; 83735; 85007; 85025; 85610; 93005; 94640; 94644; 99284